=== PATIENT | female | born 1945 | race Caucasian/White ===

== ENCOUNTER 2019-01-29 22:19 | Inpatient (IN) | payer MEDICARE ==
--- NOTE | 2019-01-29 22:41 | ED ---
Lower Extremity Injury HPI - General Chief Complaint: Extremity Injury, Lower Stated Complaint: swollen foot Time Seen by Provider: 01/29/19 22:31 Source: patient, RN notes reviewed Mode of arrival: wheelchair Limitations: no limitations - History of Present Illness Initial Comments: This a 73-year-old female presents emergency Department chief complaint left leg swelling. Patient states that it is slightly achy in nature but not severely painful. Patient states that her primary started yesterday. Patient denies any chest pain or shortness of breath. Patient states that she has no history DVT. Denies any trauma. Patient states that she is supposed to go there is for 2 prior strokes but states that she could not afford him. Patient denies any other complaints at this time. - Related Data Home Medications Medication Instructions Recorded Confirmed Aspirin EC [Ecotrin Low Dose] 81 mg PO DAILY 01/29/19 01/29/19 Atorvastatin [Lipitor] 40 mg PO HS 01/29/19 01/29/19 Lisinopril 20 mg PO BID 01/29/19 01/29/19 Ranitidine HCl [Zantac] 75 mg PO BID 01/29/19 01/29/19 amLODIPine [Norvasc] 5 mg PO DAILY 01/29/19 01/29/19 glipiZIDE [Glucotrol] 10 mg PO AC-BID 01/29/19 01/29/19 hydrALAZINE HCL [Apresoline] 50 mg PO Q8H 01/29/19 01/29/19 metFORMIN HCL [Glucophage] 500 mg PO BID 01/29/19 01/29/19 Allergies Allergy/AdvReac Type Severity Reaction Status Date / Time No Known Allergies Allergy Verified 01/29/19 22:51 Review of Systems ROS Statement: Those systems with pertinent positive or pertinent negative responses have been documented in the HPI. ROS Other: All systems not noted in ROS Statement are negative. Past Medical History Past Medical History: Atrial Fibrillation, Diabetes Mellitus, Hyperlipidemia, Hypertension Additional Past Medical History / Comment(s): CVA x2, History of Any Multi-Drug Resistant Organisms: None Reported Past Surgical History: Cholecystectomy, Tubal Ligation Past Psychological History: No Psychological Hx Reported Smoking Status: Never smoker Past Alcohol Use History: None Reported Past Drug Use History: None Reported General Exam Limitations: no limitations General appearance: alert, in no apparent distress Head exam: Present: atraumatic, normocephalic, normal inspection Respiratory exam: Present: normal lung sounds bilaterally. Absent: respiratory distress, wheezes, rales, rhonchi, stridor Cardiovascular Exam: Present: regular rate, normal rhythm, normal heart sounds. Absent: systolic murmur, diastolic murmur, rubs, gallop, clicks Extremities exam: Present: other (Extensive swelling of the left lower extremity, pulses are equal bilaterally there is no erythema equal warmth) Skin exam: Present: warm, dry, intact, normal color. Absent: rash Course Vital Signs 01/29/19 01/29/19 01/30/19 22:26 22:58 00:00 Temperature 98.1 F Pulse Rate 74 67 65 Respiratory 18 17 17 Rate Blood Pressure 147/67 155/70 O2 Sat by Pulse 99 96 98 Oximetry Medical Decision Making - Medical Decision Making 73-year-old female presented for left leg swelling. Patient has CONSISTENT with DVT. Patient will be admitted secondary to patient unable to afford prior anticoagulants. Patient will be started on heparin at this time and further management with hospitalist. Disposition Clinical Impression: Deep vein thrombosis (DVT) of left lower extremity Disposition: ADMITTED IP TO THIS HOSP Condition: Fair Referrals: Zeke Beasley MD [Primary Care Provider] - 1-2 days
--- NOTE | 2019-01-30 00:11 | US ---
EXAM: US Duplex Left Lower Extremity Veins CLINICAL HISTORY: Pain TECHNIQUE: Real-time duplex ultrasound scan of the left lower extremity veins integrating B-mode two-dimensional vascular structure, Doppler spectral analysis, color flow Doppler imaging and compression. COMPARISON: No relevant prior studies available. FINDINGS: Deep veins: Occlusive thrombus noted within the external iliac vein extending to the popliteal vein consistent with a deep vein thrombosis. Superficial veins: Unremarkable. No thrombus in the visualized great saphenous vein. Soft tissues: No acute findings. No popliteal cyst. IMPRESSION: Occlusive thrombus noted within the external iliac vein extending to the popliteal vein consistent with a deep vein thrombosis.
[2019-01-30] MEDS ORDERED: NALOXONE 0.4 MG/ML 1 ML VIAL IV PRN (00:21)
[2019-01-30] MEDS ORDERED: HEPARIN SODIUM,PORCINE 5,000 UNIT/ML 1 ML VIAL IV PRN (00:22)
[2019-01-30] MEDS ORDERED: HEPARIN SODIUM,PORCINE 10,000 UNIT/ML 1 ML VIAL IV ONE (00:22)
[2019-01-30 00:47] LABS: Basophils % (A) 0 %; Eosinophils # (A) 0.5 k/uL (0-0.7); Eosinophils % (A) 10 %; HCT 29.2 % (34.0-46.0); HGB 9.4 gm/dL (11.4-16.0); Lymphocytes # (A) 1.6 k/uL (1.0-4.8); Lymphocytes % (A) 31 %; MCH 30.7 pg (25.0-35.0); MCHC 32.3 g/dL (31.0-37.0); Mean Platelet Volume 7.3; Monocytes # (A) 0.2 k/uL (0-1.0); Monocytes % (A) 5 %; Neutrophils # (A) 2.7 k/uL (1.3-7.7); Neutrophils % (A) 53 %; Platelet Count 208 k/uL (150-450); RBC 3.08 m/uL (3.80-5.40); RDW 15.2 % (11.5-15.5); WBC 5.1 k/uL (3.8-10.6)
[2019-01-30 01:04] LABS: INR 0.9 (<1.2); Prothrombin Time 10.1 sec (9.0-12.0)
[2019-01-30 01:11] LABS: Partial Thromboplastin Time 21.8 sec (22.0-30.0)
[2019-01-30] MEDS: HEPARIN SOD,PORK IN 0.45% NACL 25,000 UNIT in 0.45% NACL 1 250ML.BAG IV SCH ×3 (02:32→22:51)
[2019-01-30] MEDS ORDERED: TEMAZEPAM 15 MG CAP PO PRN (12:54)
[2019-01-30] MEDS ORDERED: ACETAMINOPHEN TAB 500 MG TAB PO PRN (12:54)
[2019-01-30] MEDS ORDERED: ALPRAZolam 0.25 MG TAB PO PRN (12:54)
[2019-01-30 13:10] LABS: Glucose,Whole Blood 79 mg/dL (75-99)
[2019-01-30] MEDS: IOPAMIDOL-300 CONTRAST 30 ML VIAL (ORAL USE) PO PRN ×2 (13:53→14:53)
--- NOTE | 2019-01-30 15:03 | HP ---
HISTORY AND PHYSICAL DATE OF SERVICE: 01/30/2019 CHIEF COMPLAINT: Pain and swelling of the left leg. HISTORY OF PRESENT ILLNESS: This 73-year-old woman with a past medical history of atrial fibrillation, history of diabetes, hypertension, hyperlipidemia, history of CVA x2, cholecystomy being followed by Dr. Beasley in the outpatient setting was complaining of left leg pain and swelling. Patient came to [facility] and evaluation showed occlusive thrombus noted in the external iliac vein extending to the popliteal vein, consider DVT. Patient was started on IV heparin and is being monitored at this time. Previously, the patient was apparently on blood thinner, but the patient was not able to afford it according to her. There is no history of fever, rigors or chills. No history of headache, loss of consciousness, chest pain, palpitation, shortness of breath at this time. PAST MEDICAL HISTORY: History of atrial fibrillation, history of diabetes, hypertension, hyperlipidemia, CVA, cholecystectomy, tubal ligation. MEDICATIONS: 1. Metformin 500 mg p.o. b.i.d. 2. Apresoline 50 mg q.8h. 3. Glucotrol 50 mg p.o. b.i.d. 4. Norvasc 5 mg p.o. 5. Zantac 75 mg p.o. b.i.d. 6. Lisinopril 20 mg p.o. b.i.d. 7. Lipitor 40 mg q.h.s. 8. Ecotrin 81 mg p.o. daily. ALLERGIES: None. FAMILY HISTORY: No history of heart disease or strokes in the family. SOCIAL HISTORY: No history of smoking. No history of alcohol intake. REVIEW OF SYSTEMS: ENT: Diminished vision. Diminished hearing. CARDIOVASCULAR: No angina or palpitations. RESPIRATION: As mentioned earlier. GI no nausea or vomiting. : No dysuria. NERVOUS SYSTEM: No numbness or weakness. ALLERGY/IMMUNOLOGY: No asthma or hayfever. MUSCULOSKELETAL as mentioned earlier. HEMATOLOGY/ONCOLOGY as mentioned earlier. ENDOCRINE: As mentioned earlier. CONSTITUTIONAL: As mentioned earlier. DERMATOLOGY: Negative. RHEUMATOLOGY negative. NEUROLOGY as mentioned earlier. PHYSICAL EXAMINATION: Alert and oriented x2. Pulse 63. Blood pressure 160/87, respiration 18, temperature is 97.4, pulse ox 97% on room air. HEENT is conjunctivae normal. Oral mucosa moist. NECK is no jugular venous distention. No carotid bruit. No lymph node enlargement. CARDIOVASCULAR: S1, S2 muffled. RESPIRATORY: Breath sounds diminished in the bases. No rhonchi. No crackles. ABDOMEN: Soft, nontender. No mass palpable. Obese. LEGS: Minimal swelling of the left thigh and left calf also present, some minimally tender. Pulses felt normally. NERVOUS SYSTEM: Higher functions as mentioned earlier. Moves all 4 limbs. Mild diffuse weakness. LYMPHATICS: No lymph nodes palpable in the neck, axillae or groin. SKIN: No ulcers, rashes or bleeding. JOINTS: No active deforming arthropathy. LABS: WBC 5.2, hemoglobin 9.5, APTT noted. ASSESSMENT: 1. Acute deep vein thrombosis of the left leg including external iliac and popliteal vein with severe pain. 2. Anemia, normocytic anemia of chronic disease. 3. History of atrial fibrillation. 4. Diabetes type 2. 5. Hypertension. 6. Hyperlipidemia. 7. History of cerebrovascular accident x2. 8. Gait dysfunction uses wheelchair. 9. History of cholecystectomy. 10.Obesity with body mass of 31.3. RECOMMENDATIONS AND DISCUSSION: In this 73-year-old woman who presented with multiple complex medical issues, we will monitor the patient closely. We will initiate IV heparin drip. The patient will be given other symptomatic treatment. Home medication will be continued. We will also consult the case specialist to evaluate for outpatient oral anticoagulants agents such as Eliquis or Xarelto, pending insurance coverage. Otherwise, the prognosis guarded because of multiple complex medical issues. I would also recommend a CT scan of the abdomen, pelvis, and chest also to complete the workup. Further recommendations to follow. Copy of dictation being forwarded to Dr. Beasley who is the primary physician. MMODL / IJN: [id number] /
--- NOTE | 2019-01-30 16:00 | CT ---
EXAMINATION TYPE: CT ChestAbdPelvis wo con DATE OF EXAM: 01/30/2019 COMPARISON: None HISTORY: DVT left leg. Hx DM, HTN, A-fib, CVAx2, Otilia, tubal CT DLP: 1237 mGycm. Automated Exposure Control for Dose Reduction was Utilized. TECHNIQUE: CT scan of the thorax, abdomen and pelvis is performed without IV contrast. FINDINGS: The lungs are clear of consolidation. There is no pleural effusion. Heart size is normal. There is at herosclerotic vascular calcification. There is coronary artery calcification. There is no mediastinal adenopathy. There are no hilar masses. Liver shows no focal defect. There are multiple small calcified splenic granulomata. There is no panc reatic mass. Stomach appears normal. There is no adrenal mass. Kidneys have normal size. There is no hydronephrosis. There is no retroperi toneal adenopathy. Abdominal aorta is atheromatous. Bladder distends smoothly. There is no inguinal h ernia. There are a few bilateral inguinal lymph nodes up to 13 mm. Uterus is retroverted. There are m ultiple sigmoid diverticula. There is no sign of diverticulitis. There is no free fluid in the pelvis . There is no ascites. There is no free air. There is no mesenteric edema. There is no evidence of th ickened appendix. There is 40% compression deformity of L2 vertebra. There is posterior fragment extension into the spi nal canal. There is moderate spinal stenosis. The bony pelvis appears intact. IMPRESSION: Atherosclerotic vascular disease. Old granulomatous disease. Colonic diverticulosis. Old burst fractu re of L2 vertebra with spinal stenosis.
[2019-01-30 16:38] LABS: Glucose,Whole Blood 126 mg/dL (75-99)
[2019-01-30] MEDS: INSULIN ASPART (NovoLOG) 100 UNIT/ML VIAL SQ SCH ×2 (17:11→21:48)
[2019-01-30] MEDS: hydrALAZINE HCL 50 MG TAB PO SCH (17:12)
[2019-01-30] MEDS: glipiZIDE 10 MG TAB PO SCH (17:12)
[2019-01-30] MEDS: FAMOTIDINE 20 MG TAB PO SCH (20:03)
[2019-01-30] MEDS: ATORVASTATIN 40 MG TAB PO SCH (20:03)
[2019-01-30] MEDS: LISINOPRIL 20 MG TAB PO SCH (20:03)
[2019-01-30] MEDS ORDERED: metFORMIN 500 MG TAB PO SCH (21:00)
[2019-01-30 21:12] LABS: Glucose,Whole Blood 202 mg/dL (75-99)
[2019-01-31] MEDS: hydrALAZINE HCL 50 MG TAB PO SCH ×3 (00:44→16:00)
[2019-01-31 06:53] LABS: Basophils % (A) 1 %; Eosinophils # (A) 0.5 k/uL (0-0.7); Eosinophils % (A) 10 %; HCT 26.5 % (34.0-46.0); HGB 8.7 gm/dL (11.4-16.0); Lymphocytes # (A) 1.4 k/uL (1.0-4.8); Lymphocytes % (A) 29 %; MCH 31.2 pg (25.0-35.0); MCHC 32.7 g/dL (31.0-37.0); MCV 95.4 fL (80.0-100.0); Mean Platelet Volume 7.7; Monocytes # (A) 0.3 k/uL (0-1.0); Monocytes % (A) 5 %; Neutrophils # (A) 2.7 k/uL (1.3-7.7); Neutrophils % (A) 55 %; Platelet Count 211 k/uL (150-450); RBC 2.78 m/uL (3.80-5.40); RDW 15.9 % (11.5-15.5)
[2019-01-31 07:04] LABS: Partial Thromboplastin Time 51.5 sec (22.0-30.0); Prothrombin Time 10.5 sec (9.0-12.0)
[2019-01-31 07:10] LABS: Calcium 8.5 mg/dL (8.4-10.2); Potassium 4.9 mmol/L (3.5-5.1)
[2019-01-31] MEDS: INSULIN ASPART (NovoLOG) 100 UNIT/ML VIAL SQ SCH ×4 (07:13→22:47)
[2019-01-31 07:16] LABS: Glucose,Whole Blood 101 mg/dL (75-99)
[2019-01-31] MEDS: amLODIPine 5 MG TAB PO SCH (08:55)
[2019-01-31] MEDS: FAMOTIDINE 20 MG TAB PO SCH ×2 (08:55→20:35)
[2019-01-31] MEDS: PANTOPRAZOLE 40 MG TABLET PO SCH (08:55)
[2019-01-31] MEDS: glipiZIDE 10 MG TAB PO SCH ×2 (08:55→16:44)
[2019-01-31] MEDS: ASPIRIN 81 MG PO SCH (08:55)
[2019-01-31] MEDS: LISINOPRIL 20 MG TAB PO SCH ×2 (08:55→20:35)
[2019-01-31 12:07] LABS: Glucose,Whole Blood 118 mg/dL (75-99)
--- NOTE | 2019-01-31 16:28 | PN ---
PROGRESS NOTE DATE OF SERVICE: 01/31/2019. This 73-year-old woman who was admitted with acute DVT of the left leg, including external iliac and popliteal vein, has severe pain also. The patient is on IV heparin. The patient will be transitioned to Xarelto at this time. No chest pain. No palpitations. No fever. On exam, alert and oriented x3. Pulse 67, blood pressure 136/79, respiration 16, temperature 98.5, pulse ox 96% on room air. HEENT: Conjunctivae normal. NECK: No jugular venous distention. CARDIOVASCULAR SYSTEM: S1, S2 muffled. RESPIRATORY SYSTEM: Breath sounds diminished at the bases. Bilateral scattered rhonchi and crackles. ABDOMEN: Soft, non-tender. LEGS: No edema. Minimal swelling of the left leg. NERVOUS SYSTEM: No focal deficit. LABS: WBC 5, hemoglobin 8.7, sodium 140, potassium 4.9. ASSESSMENT: 1. Acute deep vein thrombosis of the left leg, including external iliac and popliteal veins, with severe pain. 2. Anemia, normocytic; anemia of chronic disease. 3. History of atrial fibrillation, paroxysmal. 4. Diabetes mellitus, type 2. 5. Hypertension. 6. Hyperlipidemia. 7. History of cerebrovascular accident x2. 8. Gait dysfunction. Uses wheelchair. 9. History of cholecystectomy. 10.Obesity with body mass index of 31.3. RECOMMENDATIONS AND DISCUSSION: I recommend to continue current medications, continue with the monitoring, symptomatic treatment. CT scan noted. The patient is unable to afford anticoagulants because of high co-pay. At this time I recommend transition to Coumadin at 10 mg given. Continue with IV heparin at this time. Guarded prognosis because of multiple complex medical issues. Increase ambulation. Further recommendations to follow. MMODL / IJN: [id number] / MTDD
[2019-01-31 16:45] LABS: Glucose,Whole Blood 172 mg/dL (75-99)
[2019-01-31] MEDS ORDERED: WARFARIN 5 MG TAB PO ONE (18:00)
[2019-01-31] MEDS: ATORVASTATIN 40 MG TAB PO SCH (20:35)
[2019-01-31 21:48] LABS: Hemoglobin A1C 7.3 % (4.0-6.0)
[2019-01-31 21:53] LABS: Glucose,Whole Blood 212 mg/dL (75-99)
[2019-01-31] MEDS: HEPARIN SOD,PORK IN 0.45% NACL 25,000 UNIT in 0.45% NACL 1 250ML.BAG IV SCH (22:00)
[2019-02-01] MEDS: hydrALAZINE HCL 50 MG TAB PO SCH ×3 (00:41→15:23)
[2019-02-01 07:29] LABS: Glucose,Whole Blood 100 mg/dL (75-99)
[2019-02-01 07:35] LABS: Basophils % (A) 1 %; Eosinophils # (A) 0.4 k/uL (0-0.7); Eosinophils % (A) 9 %; HCT 28.4 % (34.0-46.0); HGB 9.2 gm/dL (11.4-16.0); Lymphocytes # (A) 1.3 k/uL (1.0-4.8); Lymphocytes % (A) 28 %; MCHC 32.5 g/dL (31.0-37.0); MCV 95.4 fL (80.0-100.0); Mean Platelet Volume 7.3; Monocytes # (A) 0.2 k/uL (0-1.0); Monocytes % (A) 5 %; Neutrophils # (A) 2.7 k/uL (1.3-7.7); Neutrophils % (A) 57 %; Platelet Count 216 k/uL (150-450); RBC 2.98 m/uL (3.80-5.40); RDW 15.4 % (11.5-15.5); WBC 4.8 k/uL (3.8-10.6)
[2019-02-01 07:50] LABS: INR 0.9 (<1.2); Partial Thromboplastin Time 43.5 sec (22.0-30.0); Prothrombin Time 10.2 sec (9.0-12.0)
[2019-02-01 07:56] LABS: Calcium 8.8 mg/dL (8.4-10.2); Potassium 4.7 mmol/L (3.5-5.1)
[2019-02-01] MEDS: INSULIN ASPART (NovoLOG) 100 UNIT/ML VIAL SQ SCH ×4 (07:56→22:20)
[2019-02-01] MEDS: glipiZIDE 10 MG TAB PO SCH ×2 (07:57→17:38)
[2019-02-01] MEDS: amLODIPine 5 MG TAB PO SCH (07:57)
[2019-02-01] MEDS: FAMOTIDINE 20 MG TAB PO SCH ×2 (07:57→22:27)
[2019-02-01] MEDS: ASPIRIN 81 MG PO SCH (07:57)
[2019-02-01] MEDS: PANTOPRAZOLE 40 MG TABLET PO SCH (07:57)
[2019-02-01] MEDS: LISINOPRIL 20 MG TAB PO SCH ×2 (07:57→22:26)
[2019-02-01] MEDS ORDERED: HEPARIN SODIUM,PORCINE 5,000 UNIT/ML 1 ML VIAL IV STA (07:59)
[2019-02-01] MEDS ORDERED: diphenhydrAMINE 25 MG CAP PO STA (09:15)
[2019-02-01 12:12] LABS: Glucose,Whole Blood 138 mg/dL (75-99)
[2019-02-01] MEDS ORDERED: valACYclovir 500 MG TAB PO SCH (14:00)
--- NOTE | 2019-02-01 17:05 | PN ---
PROGRESS NOTE DATE OF SERVICE: 02/01/2019 This 73 -year-old woman was admitted with acute DVT of the left leg was also started on IV heparin. The patient apparently unable to afford the co-pay for anticoagulation because of the recent Coumadin was initiated. The patient also complaining of painful rash on the right upper back. PAST MEDICAL HISTORY: Reviewed. REVIEW OF SYSTEMS: CARDIOVASCULAR SYSTEM: No angina or palpitations. RESPIRATION as mentioned earlier. GI: As mentioned earlier. : No dysuria. CENTRAL NERVOUS SYSTEM: No numbness or weakness. CURRENT MEDICATIONS: Reviewed and include: 1. Tylenol 500 mg q.6h p.r.n. 2. Hope 5 mg q.4 p.r.n. 3. Xanax 0.5 t.i.d. 4. Norvasc 5 mg p.o. daily. 5. Aspirin 81 mg daily. 6. Lipitor 40 mg q.h.s. 7. Pepcid 10 mg p.o. b.i.d. 8. Glucotrol 10 mg p.o. a.c. b.i.d. 9. Heparin b.i.d. 10.Apresoline 50 mg q.8h. 11.NovoLog a.c. and q.h.s. 12.Zestril 20 mg p.o. b.i.d. 13.Glucophage 500 mg p.o. b.i.d. 14.Coumadin monitoring. 15.Narcan. 16.Zofran. 17.Protonix. 18.Restoril. PHYSICAL EXAM: Patient is alert, oriented x3. Pulse 61. Blood pressure 120/70, respiration 20, temperature 98.4, pulse ox 98% on room air. HEENT: Conjunctivae normal. NECK: No jugular venous distention. CARDIOVASCULAR: S1, S2 muffled. RESPIRATIONS: Breath sounds diminished in the bases. No rhonchi. No crackles. ABDOMEN: Soft, nontender. LEGS: No edema. No swelling. NERVOUS SYSTEM: Higher functions as mentioned earlier. Moves all 4 limbs. No focal motor or sensory deficits. Lymphatics: No lymph nodes palpable in the neck, axillae or groin. SKIN: Significant rash which is tender on the left upper back present. NERVOUS SYSTEM: No focal deficits. LABS: WBC 4.8, hemoglobin 9.2. Sodium 140, potassium 4.7. ASSESSMENT: 1. Acute deep vein thrombosis of the left leg including the external iliac and popliteal vein, severe pain on IV heparin. 2. Anemia, normocytic anemia of chronic disease. 3. Rash on the upper back, possibly herpes zoster. 4. History of atrial fibrillation, paroxysmal. 5. Diabetes mellitus type 2. 6. Hypertension. 7. Hyperlipidemia. 8. History of cerebrovascular accident times two. 9. Gait dysfunction, uses a wheelchair. 10.History of cholecystectomy. 11.History of obesity with body mass index of 31.3. RECOMMENDATIONS AND DISCUSSION: Recommend to continue current medication, continue symptomatic treatment. Continue with IV heparin, Coumadin 10 mg today. INR is 0.9. Otherwise, we will continue to monitor. I would also recommend a course of Valacyclovir. Further recommendations to follow. MMODL / IJN: [id number] / MTDD
[2019-02-01 17:31] LABS: Glucose,Whole Blood 123 mg/dL (75-99)
[2019-02-01] MEDS: HEPARIN SOD,PORK IN 0.45% NACL 25,000 UNIT in 0.45% NACL 1 250ML.BAG IV SCH (17:41)
[2019-02-01] MEDS ORDERED: WARFARIN 10 MG TAB PO ONE (18:00)
[2019-02-01 20:39] LABS: Glucose,Whole Blood 151 mg/dL (75-99)
[2019-02-01] MEDS: valACYclovir HCL 1,000 MG TABLET PO SCH (22:23)
[2019-02-01] MEDS: HYDROcodone/APAP 5-325MG 1 EACH TAB PO PRN (22:23)
[2019-02-01] MEDS: ATORVASTATIN 40 MG TAB PO SCH (22:26)
[2019-02-01] MEDS: metFORMIN 500 MG TAB PO SCH (22:26)
[2019-02-02] MEDS: hydrALAZINE HCL 50 MG TAB PO SCH ×3 (00:39→15:31)
[2019-02-02] MEDS ORDERED: HYDROcodone/APAP 5-325MG 1 EACH TAB ONE (04:27)
[2019-02-02 05:34] LABS: Basophils % (A) 0 %; Eosinophils # (A) 0.3 k/uL (0-0.7); Eosinophils % (A) 6 %; HCT 28.2 % (34.0-46.0); HGB 9.3 gm/dL (11.4-16.0); Lymphocytes # (A) 1.3 k/uL (1.0-4.8); Lymphocytes % (A) 22 %; MCH 31.2 pg (25.0-35.0); MCHC 32.8 g/dL (31.0-37.0); MCV 95.1 fL (80.0-100.0); Mean Platelet Volume 7.3; Monocytes # (A) 0.2 k/uL (0-1.0); Monocytes % (A) 4 %; Neutrophils # (A) 3.8 k/uL (1.3-7.7); Neutrophils % (A) 67 %; Platelet Count 245 k/uL (150-450); RBC 2.97 m/uL (3.80-5.40); WBC 5.7 k/uL (3.8-10.6)
[2019-02-02 05:35] LABS: Calcium 8.9 mg/dL (8.4-10.2); Partial Thromboplastin Time 61.7 sec (22.0-30.0); Potassium 4.9 mmol/L (3.5-5.1); Prothrombin Time 10.3 sec (9.0-12.0)
[2019-02-02 07:18] LABS: Glucose,Whole Blood 82 mg/dL (75-99)
[2019-02-02] MEDS: glipiZIDE 10 MG TAB PO SCH ×2 (08:06→17:14)
[2019-02-02] MEDS: metFORMIN 500 MG TAB PO SCH ×2 (08:06→20:39)
[2019-02-02] MEDS: FAMOTIDINE 20 MG TAB PO SCH ×2 (08:06→20:39)
[2019-02-02] MEDS: ASPIRIN 81 MG PO SCH (08:06)
[2019-02-02] MEDS: valACYclovir HCL 1,000 MG TABLET PO SCH ×2 (08:06→20:39)
[2019-02-02] MEDS: LISINOPRIL 20 MG TAB PO SCH ×2 (08:06→20:37)
[2019-02-02] MEDS: amLODIPine 5 MG TAB PO SCH (08:06)
[2019-02-02] MEDS: PANTOPRAZOLE 40 MG TABLET PO SCH (08:07)
[2019-02-02] MEDS: INSULIN ASPART (NovoLOG) 100 UNIT/ML VIAL SQ SCH ×4 (08:07→22:04)
[2019-02-02] MEDS: HEPARIN SOD,PORK IN 0.45% NACL 25,000 UNIT in 0.45% NACL 1 250ML.BAG IV SCH (08:08)
[2019-02-02] MEDS: ONDANSETRON 4 MG/2 ML VIAL IVP PRN ×2 (09:14→14:49)
[2019-02-02 11:23] LABS: Glucose,Whole Blood 187 mg/dL (75-99)
[2019-02-02] MEDS: SODIUM CHLORIDE 0.9% 1,000 ML IV SCH (13:08)
[2019-02-02 14:00] LABS: Calcium 8.8 mg/dL (8.4-10.2); Potassium 5.1 mmol/L (3.5-5.1)
--- NOTE | 2019-02-02 14:13 | P.PN ---
Subjective Progress Note Date: 02/02/19 Principal diagnosis: This is a 73-year-old female who was recently admitted with an acute DVT of the left lower extremity and was started on IV heparin and is being followed closely . Patient is currently bridging to Coumadin as she is unable to afford Eliquis or Xarelto. May possibly start Lovenox injections to discontinue the IV heparin and then bridge to Coumadin awaiting labs at this time. Patient is also being treated for rash of the upper back that may be possibly due to herpes zoster. Patient states the rash is very itchy and painful to the touch. Patient was started on acyclovir yesterday and tolerating well. Patient did have an episode of vomiting this morning and was given Zofran. Patient denies any further nausea or vomiting at this time. Patient denies any chest pain, shortness of breath, or palpitations at this time. Patient is afebrile. Patient is currently awaiting authorization for [facility] for rehab at this time. Objective - Vital Signs Vital signs: Vital Signs Temp 97.4 F L 02/02/19 04:15 Pulse 81 02/02/19 04:15 Resp 16 02/02/19 04:15 BP 161/78 02/02/19 04:15 Pulse Ox 92 L 02/02/19 04:15 Intake & Output 02/01/19 02/02/19 02/02/19 18:59 06:59 18:59 Intake Total 1775.162 194.838 540 Balance 1775.162 194.838 540 Intake: Intake, IV Titration 155.162 94.838 Amount Heparin Sod,Pork in 0.45% 155.162 94.838 NaCl 25,000 unit In 0.45 % NaCl 1 250ml.bag @ 18 UNITS/KG/HR 16.329 mls/hr IV .[id number] [facility] Rx#: [id number] Oral 1620 100 540 Other: Voiding Method Diaper Diaper Diaper Incontinent Incontinent Incontinent # Voids 3 1 3 - Exam Gen: This is a 73-year-old female lying in bed in no acute distress. Vital signs are stable. HEENT: Head is atraumatic, normocephalic. Pupils equal, round. Sclerae is anicteric. NECK: Supple. No JVD. No lymphadenopathy. No thyromegaly. LUNGS: Clear to auscultation. No wheezes or rhonchi. No intercostal retractions. HEART: Regular rate and rhythm. No murmur. ABDOMEN: Soft. Bowel sounds are present. No masses. No tenderness. EXTREMITIES: Mild pedal edema of the left foot. No calf tenderness. NEUROLOGICAL: Patient is awake, alert and oriented x3. Cranial nerves 2 through 12 are grossly intact. SKIN: Vesicular rash with crusting noted to the mid upper back with mild swelli ng and erythema, tender upon palpation - Labs CBC & Chem 7: 02/02/19 03:56 02/02/19 03:56 Labs: Abnormal Lab Results - Last 24 Hours (Table) 02/01/19 02/01/19 02/01/19 Range/Units 14:00 17:29 20:37 RBC (3.80-5.40) m/uL Hgb (11.4-16.0) gm/dL Hct (34.0-46.0) % RDW (11.5-15.5) % APTT 89.2 H (22.0-30.0) sec Chloride (98-107) mmol/L Creatinine (0.52-1.04) mg/dL POC Glucose (mg/dL) 123 H 151 H (75-99) mg/dL 02/01/19 02/02/19 02/02/19 Range/Units 21:22 03:56 03:56 RBC 2.97 L (3.80-5.40) m/uL Hgb 9.3 L (11.4-16.0) gm/dL Hct 28.2 L (34.0-46.0) % RDW 16.0 H (11.5-15.5) % APTT 46.4 H 61.7 H (22.0-30.0) sec Chloride (98-107) mmol/L Creatinine (0.52-1.04) mg/dL POC Glucose (mg/dL) (75-99) mg/dL 02/02/19 02/02/19 Range/Units 03:56 11:19 RBC (3.80-5.40) m/uL Hgb (11.4-16.0) gm/dL Hct (34.0-46.0) % RDW (11.5-15.5) % APTT (22.0-30.0) sec Chloride 110 H (98-107) mmol/L Creatinine 1.23 H (0.52-1.04) mg/dL POC Glucose (mg/dL) 187 H (75-99) mg/dL Assessment and Plan Assessment: Acute deep vein thrombosis of the left leg including the external iliac and popliteal vein, severe pain: On IV heparin and bridging to Coumadin Anemia, normocytic anemia of chronic disease Rash on the upper middle of her back, possibly herpes zoster History of atrial fibrillation, paroxysmal Diabetes mellitus type 2 Hypertension Hyperlipidemia History of cerebrovascular accident 2 Gait dysfunction, wheelchair-bound History of cholecystectomy History of obesity with a body mass index of 31.3 Recommendations and discussion: Recommend continue current medications and continue symptomatic treatment. Patient is currently on IV heparin drip and was given Coumadin 10 mg yesterday. Awaiting labs and may start Lovenox injections to discontinue the IV heparin drip and then bridged to Coumadin as she is unable to afford other anticoagulants. Current INR is 1.0. Awaiting authorization for [facility] at this time. Will continue to monitor closely. Guarded prognosis. Further recommendations to follow. Possible discharge in 24-48 hours.
[2019-02-02 17:07] LABS: Glucose,Whole Blood 112 mg/dL (75-99)
[2019-02-02] MEDS ORDERED: WARFARIN 10 MG TAB PO ONE (18:00)
[2019-02-02] MEDS: ATORVASTATIN 40 MG TAB PO SCH (20:37)
[2019-02-02 20:46] LABS: Glucose,Whole Blood 167 mg/dL (75-99)
[2019-02-03] MEDS: hydrALAZINE HCL 50 MG TAB PO SCH ×2 (00:48→08:57)
[2019-02-03] MEDS: SODIUM CHLORIDE 0.9% 1,000 ML IV SCH (01:59)
[2019-02-03] MEDS: HYDROcodone/APAP 5-325MG 1 EACH TAB PO PRN ×3 (03:02→21:18)
[2019-02-03 07:01] LABS: INR 1.3 (<1.2); Partial Thromboplastin Time 79.9 sec (22.0-30.0); Prothrombin Time 13.2 sec (9.0-12.0)
[2019-02-03 07:03] LABS: Glucose,Whole Blood 64 mg/dL (75-99)
[2019-02-03 07:10] LABS: Glucose,Whole Blood 63 mg/dL (75-99)
[2019-02-03 07:26] LABS: Calcium 8.5 mg/dL (8.4-10.2); Potassium 4.9 mmol/L (3.5-5.1)
[2019-02-03] MEDS: HEPARIN SOD,PORK IN 0.45% NACL 25,000 UNIT in 0.45% NACL 1 250ML.BAG IV SCH ×2 (07:26→13:12)
[2019-02-03 07:27] LABS: Glucose,Whole Blood 69 mg/dL (75-99)
[2019-02-03] MEDS: INSULIN ASPART (NovoLOG) 100 UNIT/ML VIAL SQ SCH ×4 (07:27→21:11)
[2019-02-03 07:43] LABS: Glucose,Whole Blood 106 mg/dL (75-99)
[2019-02-03] MEDS: metFORMIN 500 MG TAB PO SCH (08:56)
[2019-02-03] MEDS: LISINOPRIL 20 MG TAB PO SCH (08:56)
[2019-02-03] MEDS: amLODIPine 5 MG TAB PO SCH (08:56)
[2019-02-03] MEDS: glipiZIDE 10 MG TAB PO SCH ×2 (08:56→18:10)
[2019-02-03] MEDS: FAMOTIDINE 20 MG TAB PO SCH ×2 (08:56→21:06)
[2019-02-03] MEDS: ASPIRIN 81 MG PO SCH (08:56)
[2019-02-03] MEDS: PANTOPRAZOLE 40 MG TABLET PO SCH (08:57)
[2019-02-03] MEDS: valACYclovir HCL 1,000 MG TABLET PO SCH (08:57)
[2019-02-03] MEDS: ONDANSETRON 4 MG/2 ML VIAL IVP PRN ×2 (08:57→18:11)
[2019-02-03 12:02] LABS: Glucose,Whole Blood 138 mg/dL (75-99)
--- NOTE | 2019-02-03 12:02 | XR ---
EXAMINATION TYPE: XR chest 1V DATE OF EXAM: 02/03/2019 COMPARISON: CT dated 01/30/2019 HISTORY: Shortness of breath TECHNIQUE: Single frontal view of the chest is obtained. FINDINGS: Retrocardiac airspace disease is noted with obscuration of the left hemidiaphragm borders. No sizable right pleural effusion. No pneumothorax. Diffuse osseous demineralization. Right hemidiap hragm elevation is incidentally seen. The cardiac silhouette size is within normal limits. The osse ous structures are intact. IMPRESSION: Retrocardiac airspace disease is seen obscuring the hemidiaphragm border on the left puma t may relate to atelectasis or pneumonia in the proper clinical setting. Right hemidiaphragm elevatio n is age indeterminant without priors.
--- NOTE | 2019-02-03 12:47 | XR ---
EXAMINATION TYPE: XR chest 2V DATE OF EXAM: 02/03/2019 COMPARISON: 02/03/2019 TECHNIQUE: PA and lateral views submitted. HISTORY: Vomiting and DVT FINDINGS: Diffuse osteopenia. Heart size stable. Atherosclerotic change aorta. Subsegmental changes left lung b ase right hemidiaphragm is elevated may been the basis of phrenic nerve paralysis. No overt failure. Hyperinflation suggests COPD. IMPRESSION: 1. Left basilar subsegmental changes. Atelectasis\bronchiectasis favored over pneumonia correlate cli nically.
[2019-02-03] MEDS: LACTATED RINGERS 1,000 ML IV SCH ×2 (13:12→21:17)
[2019-02-03] MEDS: DOCUSATE 100 MG CAP PO SCH ×2 (13:33→21:16)
--- NOTE | 2019-02-03 14:44 | CDI ---
Documentation Clarification Form Date: 02/03/2019 2:36:39 PM From: [employer] Admit Date: 01/30/2019 4:49:00 AM Patient Name: Bessie Banerjee Visit Number: [id number] ATTENTION: The Clinical Documentation Specialists (CDI) and [facility] Coding Staff appreciate your assistance in clarifying documentation. Please respond to the clarification below the line at the bottom and electronically sign. The CDI & [facility] Coding staff will review the response and follow-up if needed. Please note: Queries are made part of the Legal Health Record. If you have any questions, please contact the author of this message via ITS. Dr. Augie Phelan A steadily increasing BUN and Creatinine has been noted, please provide clinical significance History/Risk Factors: Patients baseline BUN/CR/GFR: No baseline renal functions available Clinical Indicators: Current BUN: 18/16/20/22 Cr: .98/1.09/1.37/1.51 GFR: 57/50/38/34 Treatment: Norvasc 5 mg po QD Apresoline 50 mg Po Q 8 hrs IVF 0.9@ 75 cc/hr In order to capture the severity of condition, please clarify if the condition signifies: Acute renal failure, Please specify etiology (if known): Cortical Necrosis Medullary Necrosis Tubular Necrosis Acute kidney injury Acute on chronic renal failure CKD Stage 1 GFR >90 CKD Stage 2 GFR 60-89 CKD Stage 3 GFR 30-59 CKD Stage 4 GFR 15-29 CKD Stage 5 GFR <15 Chronic renal failure/Chronic Kidney disease (CKD) please stage (if known): CKD Stage 1 GFR >90 CKD Stage 2 GFR 60-89 CKD Stage 3 GFR 30-59 CKD Stage 4 GFR 15-29 CKD Stage 5 GFR <15 ESRD Other, please specify Unable to determine (Last Revision: September 2017) no CKD MTDD
--- NOTE | 2019-02-03 16:14 | P.PN ---
Subjective Progress Note Date: 02/03/19 Principal diagnosis: This is a 73-year-old female who was recently admitted with an acute DVT of the left lower extremity and was started on IV heparin and is being followed closely . Patient is currently bridging to Coumadin as she is unable to afford Eliquis or Xarelto. May possibly start Lovenox injections to discontinue the IV heparin and then bridge to Coumadin awaiting labs at this time. Patient is also being treated for rash of the upper back that may be possibly due to herpes zoster. Patient states the rash is very itchy and painful to the touch. Patient was started on acyclovir yesterday and tolerating well. Patient did have an episode of vomiting this morning and was given Zofran. Patient denies any further nausea or vomiting at this time. Patient denies any chest pain, shortness of breath, or palpitations at this time. Patient is afebrile. Patient is currently awaiting authorization for [facility] for rehab at this time. 02/03/2019 Patient is lying in bed in no acute distress. Patient hasn't been eating as well as she states she is nauseated patient has not vomited since last night. Patient continues to be on the IV heparin with bridging to Coumadin. Current INR is 1.3. Patient's creatinine is elevated at 1.51 at this time. IV fluids have been increased 100 mL per hour and switched to lactated Ringer's. Will continue to monitor vitals and labs closely. We will discontinue Glucophage, hydralazine, and lisinopril at this time as this may be causing an acute renal failure. Patient denies any chest pain, shortness of breath, or palpitations at this time. Patient remains afebrile. The rash on the upper back has slightly improved with crusting noted. Patient states that the discomfort has minimized. Patient states that the swelling of the left foot has also improved. Patient states that she has not gotten out of bed today and was told she was not to get up because of the DVT in the leg. PT/OT are following. Patient will be going to [facility] for rehab once stabilized. Authorization will tomorrow and will possibly need to request new authorization. Guarded prognosis Objective - Vital Signs Vital signs: Vital Signs Temp 98.4 F 02/03/19 13:26 Pulse 72 02/03/19 13:26 Resp 16 02/03/19 13:26 BP 136/56 02/03/19 13:26 Pulse Ox 94 L 02/03/19 13:26 Intake & Output 02/02/19 02/03/19 02/03/19 18:59 06:59 18:59 Intake Total 2160 100 820.397 Balance 2160 100 820.397 Intake: Intake, IV Titration 280.397 Amount Heparin Sod,Pork in 0.45% 280.397 NaCl 25,000 unit In 0.45 % NaCl 1 250ml.bag @ 18 UNITS/KG/HR 16.329 mls/hr IV .[id number] BRIDGER Rx#: [id number] Oral 2160 100 540 Other: Voiding Method Incontinent Diaper Incontinent # Voids 1 2 5 - Exam Gen: This is a 73-year-old female lying in bed in no acute distress. Vital signs are stable. Temp is 98.2F, pulse is 65, respirations are 20, blood pressure is 126/70, oxygen saturation is 94% on room air. HEENT: Head is atraumatic, normocephalic. Pupils equal, round. Sclerae is anicteric. NECK: Supple. No JVD. No lymphadenopathy. No thyromegaly. LUNGS: Clear to auscultation. No wheezes or rhonchi. No intercostal retractions. HEART: Regular rate and rhythm. No murmur. ABDOMEN: Soft. Bowel sounds are present. No masses. No tenderness. EXTREMITIES: Mild pedal edema of the left foot has improved. No calf tenderness. NEUROLOGICAL: Patient is awake, alert and oriented x3. Cranial nerves 2 through 12 are grossly intact. SKIN: Vesicular rash with crusting noted to the mid upper back with mild swelling and erythema that has improved - Labs CBC & Chem 7: 02/02/19 03:56 02/03/19 06:33 Labs: Abnormal Lab Results - Last 24 Hours (Table) 02/02/19 02/02/19 02/03/19 Range/Units 17:03 20:34 06:33 PT 13.2 H (9.0-12.0) sec INR 1.3 H (<1.2) APTT 79.9 H (22.0-30.0) sec Chloride (98-107) mmol/L BUN (7-17) mg/dL Creatinine (0.52-1.04) mg/dL Glucose (74-99) mg/dL POC Glucose (mg/dL) 112 H 167 H (75-99) mg/dL 02/03/19 02/03/19 02/03/19 Range/Units 06:33 06:46 07:03 PT (9.0-12.0) sec INR (<1.2) APTT (22.0-30.0) sec Chloride 113 H (98-107) mmol/L BUN 22 H (7-17) mg/dL Creatinine 1.51 H (0.52-1.04) mg/dL Glucose 60 L (74-99) mg/dL POC Glucose (mg/dL) 64 L 63 L (75-99) mg/dL 02/03/19 02/03/19 02/03/19 Range/Units 07:19 07:40 12:00 PT (9.0-12.0) sec INR (<1.2) APTT (22.0-30.0) sec Chloride (98-107) mmol/L BUN (7-17) mg/dL Creatinine (0.52-1.04) mg/dL Glucose (74-99) mg/dL POC Glucose (mg/dL) 69 L 106 H 138 H (75-99) mg/dL 02/03/19 Range/Units 12:38 PT (9.0-12.0) sec INR (<1.2) APTT 55.3 H (22.0-30.0) sec Chloride (98-107) mmol/L BUN (7-17) mg/dL Creatinine (0.52-1.04) mg/dL Glucose (74-99) mg/dL POC Glucose (mg/dL) (75-99) mg/dL Assessment and Plan Assessment: Acute deep vein thrombosis of the left leg including the external iliac and popliteal vein, severe pain: On IV heparin and bridging to Coumadin Anemia, normocytic anemia of chronic disease Acute renal failure possibly secondary to lisinopril, hydralazine, metformin use: Will continue to monitor labs closely. Discontinuing lisinopril, hydralazine, and metformin at this time. Current creatinine is 1.51 Rash on the upper middle of her back, possibly herpes zoster History of atrial fibrillation, paroxysmal Diabetes mellitus type 2 Hypertension Hyperlipidemia History of cerebrovascular accident 2 Gait dysfunction, wheelchair-bound History of cholecystectomy History of obesity with a body mass index of 31.3 Recommendations and discussion: Recommend continue current medications and continue symptomatic treatment. Patient is currently on IV heparin drip and was given Coumadin 10 mg yesterday. Current INR is 1.3. Received authorization for [facility] for rehab and it expires tomorrow may need to renew once patient is stabilized for discharge. Will continue to monitor closely. Guarded prognosis. Further recommendations to follow. Possible discharge in 24-48 hours.
[2019-02-03 17:32] LABS: Glucose,Whole Blood 97 mg/dL (75-99)
[2019-02-03] MEDS ORDERED: WARFARIN 10 MG TAB PO ONE (18:00)
[2019-02-03 20:57] LABS: Glucose,Whole Blood 114 mg/dL (75-99)
[2019-02-03] MEDS: ATORVASTATIN 40 MG TAB PO SCH (21:06)
[2019-02-03] MEDS: valACYclovir 500 MG TAB PO SCH (22:25)
[2019-02-04] MEDS: ONDANSETRON 4 MG/2 ML VIAL IVP PRN (02:02)
[2019-02-04 07:36] LABS: Glucose,Whole Blood 95 mg/dL (75-99)
[2019-02-04 07:36] LABS: Glucose,Whole Blood 64 mg/dL (75-99)
[2019-02-04 07:36] LABS: Glucose,Whole Blood 66 mg/dL (75-99)
[2019-02-04 08:01] VITALS: BP 132/80; PULSE 69; RESP 16; TEMP 97.7
[2019-02-04 08:07] LABS: Anisocytosis Slight; HCT 26.1 % (34.0-46.0); HGB 8.3 gm/dL (11.4-16.0); MCH 31.2 pg (25.0-35.0); MCV 97.5 fL (80.0-100.0); Macrocytosis Slight; Platelet Count 223 k/uL (150-450); RBC 2.68 m/uL (3.80-5.40); RDW 16.1 % (11.5-15.5); WBC 4.7 k/uL (3.8-10.6)
[2019-02-04 08:14] LABS: INR 2.4 (<1.2); Partial Thromboplastin Time 73.3 sec (22.0-30.0); Prothrombin Time 23.3 sec (9.0-12.0)
[2019-02-04 08:15] LABS: Calcium 8.6 mg/dL (8.4-10.2); Potassium 4.7 mmol/L (3.5-5.1)
[2019-02-04] MEDS: INSULIN ASPART (NovoLOG) 100 UNIT/ML VIAL SQ SCH ×2 (09:13→12:19)
[2019-02-04] MEDS: FAMOTIDINE 20 MG TAB PO SCH (09:19)
[2019-02-04] MEDS: PANTOPRAZOLE 40 MG TABLET PO SCH (09:19)
[2019-02-04] MEDS: DOCUSATE 100 MG CAP PO SCH (09:19)
[2019-02-04] MEDS: amLODIPine 5 MG TAB PO SCH (09:20)
[2019-02-04] MEDS: LACTATED RINGERS 1,000 ML IV SCH (09:20)
[2019-02-04] MEDS: valACYclovir 500 MG TAB PO SCH (09:20)
[2019-02-04] MEDS: ASPIRIN 81 MG PO SCH (09:20)
[2019-02-04] MEDS: glipiZIDE 10 MG TAB PO SCH (09:20)
[2019-02-04] MEDS ORDERED: BISACODYL 10 MG SUPP RECTAL STA (10:54)
[2019-02-04] MEDS: HEPARIN SOD,PORK IN 0.45% NACL 25,000 UNIT in 0.45% NACL 1 250ML.BAG IV SCH (11:00)
--- NOTE | 2019-02-04 12:30 | P.DS ---
Providers Date of admission: 01/30/19 04:49 Expected date of discharge: 02/04/19 Attending physician: Lise Haynes [facility] Course: Final diagnosis Acute deep vein thrombosis of the left leg including the external iliac and popliteal vein, severe pain Anemia, normocytic anemia of chronic disease Acute renal failure possibly secondary to lisinopril, hydralazine, metformin use: Current creatinine has improved Rash on the upper middle of her back, possibly herpes zoster History of atrial fibrillation, paroxysmal Diabetes mellitus type 2 Hypertension Hyperlipidemia History of cerebrovascular accident 2 Gait dysfunction, wheelchair-bound History of cholecystectomy History of obesity with a body mass index of 31.3 Discharge disposition Patient is being discharged in a stable condition with guarded prognosis to [facility] and will continue to work with PT/OT. History of present illness This is a 73-year-old female who was recently admitted for acute DVT of the left lower extremity and was on IV heparin and is transitioning over to Coumadin and was being followed closely. Patient was unable to afford other anticoagulants at this time. Patient was also having a painful itchy rash of the upper mid back and is currently being treated with Valtrex and is to continue on this medication for the next 2 weeks. Patient will need to follow-up with primary care provider upon discharge for recheck. Patient has been having a couple episodes of nausea and vomiting and has been relieved with Zofran. Will continue with oral Zofran as needed. Patient continues to need encouragement on eating as she was not eating as well due to the nausea and fear of vomiting. Patient states that she normally is in a wheelchair at home and will need continuous PT/OT while in the rehab. Patient was bridged to Coumadin and will need a repeat PT/INR in 2-3 days to maintain therapeutic levels of an INR of 2- 3. Patient denies any chest pain, shortness of breath, or palpitations at this time. Patient remains afebrile. Patient also states that she has not had a bowel movement since she was admitted and Dulcolax was provided. May continue Dulcolax as needed for constipation. Patient is currently stable and will be going to [facility] for rehab today. Guarded prognosis On exam vital signs are stable. Blood pressure is 132/80, pulse is 69, temp is 97.7F, respirations are 16, oxygen saturation is 93% on room air. Cardio S1 and S2 are normal. Respiratory system shows diminished breath sounds at the bases otherwise clear upon auscultation. Abdomen is soft, obese, and nontender. Nervous system shows no focal deficits with mild diffuse weakness. Patient states she is wheelchair-bound at home. Please refer to medication reconciliation sheet for a list of medications. Patient Condition at Discharge: Fair Plan - Discharge Summary Discharge Rx Participant: Yes New Discharge Prescriptions: New Warfarin Sodium [Coumadin] 4 mg PO DAILY #30 tablet Bisacodyl [Dulcolax] 5 mg PO DAILY PRN #14 tablet. PRN Reason: Constipation HYDROcodone/APAP 5-325MG [[place] 5-325] 1 each PO Q4HR PRN #12 tab PRN Reason: Moderate Pain Pantoprazole [Protonix] 40 mg PO AC-BRKFST tablet. Acetaminophen Tab [Tylenol] 500 mg PO Q6HR PRN tab PRN Reason: Fever And/ Or Pain valACYclovir [Valtrex] 500 mg PO TID 14 Days #42 tab Ondansetron [Zofran] 4 mg PO Q8HR PRN #1 tab PRN Reason: Nausea Continue Ranitidine HCl [Zantac] 75 mg PO BID Atorvastatin [Lipitor] 40 mg PO HS Aspirin EC [Ecotrin Low Dose] 81 mg PO DAILY Changed glipiZIDE [Glucotrol] 5 mg PO AC-BID #0 Lisinopril 10 mg PO DAILY #0 Discontinued hydrALAZINE HCL [Apresoline] 50 mg PO Q8H metFORMIN HCL [Glucophage] 500 mg PO BID amLODIPine [Norvasc] 5 mg PO DAILY Discharge Medication List Aspirin EC [Ecotrin Low Dose] 81 mg PO DAILY 01/29/19 [History] Atorvastatin [Lipitor] 40 mg PO HS 01/29/19 [History] Ranitidine HCl [Zantac] 75 mg PO BID 01/29/19 [History] Acetaminophen Tab [Tylenol] 500 mg PO Q6HR PRN tab 02/04/19 [Rx] Bisacodyl [Dulcolax] 5 mg PO DAILY PRN #14 tablet. 02/04/19 [Rx] HYDROcodone/APAP 5-325MG [[place] 5-325] 1 each PO Q4HR PRN #12 tab 02/04/19 [Rx] Lisinopril 10 mg PO DAILY #0 02/04/19 [Rx] Ondansetron [Zofran] 4 mg PO Q8HR PRN #1 tab 02/04/19 [Rx] Pantoprazole [Protonix] 40 mg PO AC-BRKFST tablet. 02/04/19 [Rx] Warfarin Sodium [Coumadin] 4 mg PO DAILY #30 tablet 02/04/19 [Rx] glipiZIDE [Glucotrol] 5 mg PO AC-BID #0 02/04/19 [Rx] valACYclovir [Valtrex] 500 mg PO TID 14 Days #42 tab 02/04/19 [Rx] Follow up Appointment(s)/Referral(s): Will Ayers MD [STAFF PHYSICIAN] - 1-2 Days Zeke Beasley MD [Primary Care Provider] - 1-2 days [facility] Visiting Nurse, [NON-STAFF] - 1-2 Days Ambulatory/Diagnostic Orders: Basic Metabolic Panel [LAB.AMB] Time Frame: 2 Days, Location: None Selected Complete Blood Count w/diff [LAB.AMB] Time Frame: 2 Days, Location: None Selected Prothrombin Time INR [LAB.AMB] Time Frame: 2 Days, Location: None Selected Activity/Diet/Wound Care/Special Instructions: [facility] as tolerated Repeat labs in 2-3 days Continue current diet Continue to monitor blood sugars before meals at bedtime Follow-up with primary care provider once discharged Continue working with PT/OT Continue course of Valtrex for 2 weeks and then may discontinue. Follow-up with primary care provider upon discharge for recheck [employer] for new glucometer can be contacted at . Discharge Disposition: TRANSFER TO SNF/ECF
[2019-02-04 12:31] LABS: Glucose,Whole Blood 83 mg/dL (75-99)
[2019-02-04 12:50] VITALS: BMI 31.3
[2019-02-04] MEDS ORDERED: WARFARIN 5 MG TAB PO ONE (18:00)
== END 2019-02-04 15:16 | DRG 300 ==
LOC: EC 22:19 → 4MS4W 01-30 04:49 → OBSVTOIN 01-30 04:49
PROVIDERS: ADMIT Hospitalist; ATTEND Hospitalist
DX: I82.432 Acute embolism and thrombosis of left popliteal vein (principal); N17.9 Acute kidney failure, unspecified; I82.422 Acute embolism and thrombosis of left iliac vein; E11.9 Type 2 diabetes mellitus without complications; E66.9 Obesity, unspecified; B02.9 Zoster without complications; E78.5 Hyperlipidemia, unspecified; I10 Essential (primary) hypertension; T46.4X5A Adverse effect of angiotensin-converting-enzyme inhibitors, initial encounter; T46.5X5A Adverse effect of other antihypertensive drugs, initial encounter; T38.3X5A Adverse effect of insulin and oral hypoglycemic [antidiabetic] drugs, initial encounter; D63.8 Anemia in other chronic diseases classified elsewhere; I48.0 Paroxysmal atrial fibrillation; Z68.31 Body mass index [BMI] 31.0-31.9, adult; Z79.82 Long term (current) use of aspirin; Z86.718 Personal history of other venous thrombosis and embolism; Z86.73 Personal history of transient ischemic attack (TIA), and cerebral infarction without residual deficits; Z90.49 Acquired absence of other specified parts of digestive tract; Z99.3 Dependence on wheelchair; Z98.51 Tubal ligation status
CPT/HCPCS: 36415; 71045; 71046; 71250; 74176; 80048; 83036; 85025; 85027; 85610; 85730; 96365; 96366; 96376; 99284

== ENCOUNTER 2020-09-28 22:48 | Inpatient (IN) | payer MEDICARE ==
[2020-09-28] MEDS ORDERED: SODIUM CHLORIDE 0.9% 500 ML 500 ML IV STA (23:35)
--- NOTE | 2020-09-28 23:44 | ED ---
Weakness HPI - General Chief complaint: Weakness Stated complaint: weakness, ankle pain Time Seen by Provider: 09/28/20 23:15 Source: patient, family, RN notes reviewed Mode of arrival: wheelchair Limitations: physical limitation - History of Present Illness Initial comments: 75-year-old female patient brought in by family member for multiple falls. Fabian akhtar states she fell in her garage on September 26 and was taken to [facility] and diagnosed with a fracture right lower leg. Patient was discharged home and directed to follow up with orthopedics. She states she told them she was unable to get up on her own and they told her to "Army crawl" into her house. Patient states she was trying to elevate her legs as directed and slipped out of the wheelchair and stayed on the floor for 12 hours last night. Family member states that she went to the house to help her and brought her here to the emergency room. Patient is scheduled for surgery on Thursday at [facility] but doesn't remember the doctor's name. States seen orthopedics and had an EKG and blood work done to prepare for surgery. Family states that she is scheduled to go to [facility] on Thursday after surgery for rehab. Patient states at home she normally can take a couple steps from her wheelchair to the bathroom however since the has not been able to therefore she has been using depends undergarments to urinate in. Granddaughter at bedside states that they go over once a day to change her but is becoming increasingly difficult. Complaint: generalized weakness, difficulty walking -: days(s) (2) Location: generalized Severity scale (1-10): 8 Worsens with: movement Context: trauma/injury (fall 09/26) - Related Data Home Medications Medication Instructions Recorded Confirmed Pantoprazole [Protonix] 40 mg PO DAILY 09/28/20 09/28/20 Simvastatin [Zocor] 80 mg PO DAILY 09/28/20 09/28/20 Warfarin [Coumadin] 5 mg PO SUTUTHSA 09/28/20 09/28/20 Warfarin [Coumadin] 10 mg PO MOWEFR 09/28/20 09/28/20 amLODIPine [Norvasc] 5 mg PO DAILY 09/28/20 09/28/20 glipiZIDE [Glucotrol] 10 mg PO BID 09/28/20 09/28/20 lisinopriL [Zestril] 10 mg PO BID 09/28/20 09/28/20 Allergies Allergy/AdvReac Type Severity Reaction Status Date / Time No Known Allergies Allergy Verified 09/28/20 23:38 Review of Systems ROS Statement: Those systems with pertinent positive or pertinent negative responses have been documented in the HPI. ROS Other: All systems not noted in ROS Statement are negative. Past Medical History Past Medical History: Atrial Fibrillation, Diabetes Mellitus, Hyperlipidemia, Hypertension Additional Past Medical History / Comment(s): CVA x2, History of Any Multi-Drug Resistant Organisms: ESBL Date of last positivie culture/infection: 02/16/19 MDRO Source:: ESBL URINE Past Surgical History: Cholecystectomy, Tubal Ligation Past Anesthesia/Blood Transfusion Reactions: No Reported Reaction Past Psychological History: No Psychological Hx Reported Smoking Status: Never smoker Past Alcohol Use History: None Reported Past Drug Use History: None Reported General Exam Limitations: physical limitation General appearance: alert, in no apparent distress Head exam: Present: atraumatic, normocephalic, normal inspection Eye exam: Present: normal appearance, PERRL, EOMI. Absent: scleral icterus, conjunctival injection, periorbital swelling Pupils: Present: normal accommodation ENT exam: Present: normal exam (endentulous), normal oropharynx, mucous membranes moist, normal external ear exam Neck exam: Present: normal inspection, full ROM. Absent: tenderness, meni ngismus, lymphadenopathy Respiratory exam: Present: normal lung sounds bilaterally. Absent: respiratory distress, wheezes, rales, rhonchi, stridor, chest wall tenderness, accessory muscle use Cardiovascular Exam: Present: regular rate, normal heart sounds. Absent: systolic murmur, diastolic murmur, rubs, gallop, clicks GI/Abdominal exam: Present: soft, normal bowel sounds. Absent: distended, tenderness, guarding, rebound, rigid Extremities exam: Present: tenderness (right lower leg in splint, fercho wrap ), normal capillary refill. Absent: calf tenderness Neurological exam: Present: alert, oriented X3, CN II-XII intact Psychiatric exam: Present: normal affect, normal mood Skin exam: Present: warm, dry, intact, normal color. Absent: rash, cyanosis, diaphoretic Course Vital Signs 09/28/20 09/29/20 23:05 00:11 Temperature 97.9 F Pulse Rate 82 82 Respiratory 22 18 Rate Blood Pressure 141/62 136/76 O2 Sat by Pulse 96 97 Oximetry EKG Findings - EKG Results: EKG: sinus rhythm (Ventricular rate is 71, IA interval 0.154, QRS of 0.70, QTC 0.415, sinus rhythm with premature atrial complexes) Medical Decision Making - Medical Decision Making Chest x-ray shows no heart failure or infiltrates. There is no active cardiopulmonary disease. X-ray of the right tibia-fibula shows a non-displaced fracture of the fibular head. Splint is in place, neurovascularly intact, capillary refill less than 2 seconds. Patient states laid on the floor for 12 hours today, this is likely the cause of her elevated CPK at 783, patient was gi blake 500 mL of 0.9 normal saline. Hemoglobin and hematocrit is 10.6 and 33.2 respectively, WBC count of 7.2. BUN of 36 and a creatinine of 2.06 which is elevated from 01/2019 when it was 1.28. Case discussed with , will admit patient for weakness with multiple falls and acute kidney injury. - Lab Data Result diagrams: 09/28/20 23:46 09/28/20 23:46 Lab Results 09/28/20 09/28/20 09/28/20 Range/Units 23:46 23:46 23:46 WBC 7.2 (3.8-10.6) k/uL RBC 3.44 L (3.80-5.40) m/uL Hgb 10.6 L (11.4-16.0) gm/dL Hct 33.2 L (34.0-46.0) % MCV 96.6 (80.0-100.0) fL MCH 30.9 (25.0-35.0) pg MCHC 32.0 (31.0-37.0) g/dL RDW 13.8 (11.5-15.5) % Plt Count 171 (150-450) k/uL MPV 8.3 Neutrophils % 71 % Lymphocytes % 19 % Monocytes % 5 % Eosinophils % 4 % Basophils % 0 % Neutrophils # 5.1 (1.3-7.7) k/uL Lymphocytes # 1.4 (1.0-4.8) k/uL Monocytes # 0.3 (0-1.0) k/uL Eosinophils # 0.3 (0-0.7) k/uL Basophils # 0.0 (0-0.2) k/uL Sodium 139 (137-145) mmol/L Potassium 4.6 (3.5-5.1) mmol/L Chloride 107 (98-107) mmol/L Carbon Dioxide 23 (22-30) mmol/L Anion Gap 9 mmol/L BUN 36 H (7-17) mg/dL Creatinine 2.06 H (0.52-1.04) mg/dL Est GFR (CKD-EPI)AfAm 26 (>60 ml/min/1.73 sqM) Est GFR (CKD-EPI)NonAf 23 (>60 ml/min/1.73 sqM) Glucose 282 H (74-99) mg/dL Plasma Lactic Acid Blake 1.2 (0.7-2.0) mmol/L Calcium 8.8 (8.4-10.2) mg/dL Magnesium 1.9 (1.6-2.3) mg/dL Total Bilirubin 0.3 (0.2-1.3) mg/dL AST 26 (14-36) U/L ALT 12 (4-34) U/L Alkaline Phosphatase 98 (38-126) U/L Creatine Kinase 783 H (30-135) U/L Troponin I (0.000-0.034) ng/mL Total Protein 6.0 L (6.3-8.2) g/dL Albumin 3.6 (3.5-5.0) g/dL Urine Color Urine Appearance (Clear) Urine pH (5.0-8.0) Ur Specific [place] (1.001-1.035) Urine Protein (Negative) Urine Glucose (UA) (Negative) Urine Ketones (Negative) Urine Blood (Negative) Urine Nitrite (Negative) Urine Bilirubin (Negative) Urine Urobilinogen (<2.0) mg/dL Ur Leukocyte Esterase (Negative) Urine RBC (0-5) /hpf Urine WBC (0-5) /hpf Urine WBC Clumps (None) /hpf Ur Squamous Epith Cells (0-4) /hpf Urine Bacteria (None) /hpf Hyaline Casts (0-2) /lpf Urine Mucus (None) /hpf 09/28/20 09/29/20 Range/Units 23:46 00:36 WBC (3.8-10.6) k/uL RBC (3.80-5.40) m/uL Hgb (11.4-16.0) gm/dL Hct (34.0-46.0) % MCV (80.0-100.0) fL MCH (25.0-35.0) pg MCHC (31.0-37.0) g/dL RDW (11.5-15.5) % Plt Count (150-450) k/uL MPV Neutrophils % % Lymphocytes % % Monocytes % % Eosinophils % % Basophils % % Neutrophils # (1.3-7.7) k/uL Lymphocytes # (1.0-4.8) k/uL Monocytes # (0-1.0) k/uL Eosinophils # (0-0.7) k/uL Basophils # (0-0.2) k/uL Sodium (137-145) mmol/L Potassium (3.5-5.1) mmol/L Chloride (98-107) mmol/L Carbon Dioxide (22-30) mmol/L Anion Gap mmol/L BUN (7-17) mg/dL Creatinine (0.52-1.04) mg/dL Est GFR (CKD-EPI)AfAm (>60 ml/min/1.73 sqM) Est GFR (CKD-EPI)NonAf (>60 ml/min/1.73 sqM) Glucose (74-99) mg/dL Plasma Lactic Acid Blake (0.7-2.0) mmol/L Calcium (8.4-10.2) mg/dL Magnesium (1.6-2.3) mg/dL Total Bilirubin (0.2-1.3) mg/dL AST (14-36) U/L ALT (4-34) U/L Alkaline Phosphatase (38-126) U/L Creatine Kinase (30-135) U/L Troponin I <0.012 (0.000-0.034) ng/mL Total Protein (6.3-8.2) g/dL Albumin (3.5-5.0) g/dL Urine Color Yellow Urine Appearance Cloudy H (Clear) Urine pH 5.5 (5.0-8.0) Ur Specific [place] 1.023 (1.001-1.035) Urine Protein 1+ H (Negative) Urine Glucose (UA) Trace H (Negative) Urine Ketones Negative (Negative) Urine Blood Trace H (Negative) Urine Nitrite Negative (Negative) Urine Bilirubin Negative (Negative) Urine Urobilinogen 2.0 (<2.0) mg/dL Ur Leukocyte Esterase Large H (Negative) Urine RBC 5 (0-5) /hpf Urine WBC 111 H (0-5) /hpf Urine WBC Clumps Moderate H (None) /hpf Ur Squamous Epith Cells 1 (0-4) /hpf Urine Bacteria Many H (None) /hpf Hyaline Casts 31 H (0-2) /lpf Urine Mucus Rare H (None) /hpf Disposition Clinical Impression: BENITO (acute kidney injury), Weakness, Multiple falls, Fibula fracture Disposition: ADMITTED IP TO THIS HOSP Condition: Fair Referrals: Zeke Beasley MD [Primary Care Provider] - 1-2 days Decision Date: 09/29/20 Decision Time: 01:00
[2020-09-29 00:29] LABS: Albumin 3.6 g/dL (3.5-5.0); Calcium 8.8 mg/dL (8.4-10.2); Magnesium 1.9 mg/dL (1.6-2.3); Potassium 4.6 mmol/L (3.5-5.1); Total Bilirubin 0.3 mg/dL (0.2-1.3)
--- NOTE | 2020-09-29 00:29 | XR ---
EXAMINATION TYPE: XR tibia fibula RT DATE OF EXAM: 09/29/2020 COMPARISON: NONE HISTORY: Leg fracture. Fell on the leg. TECHNIQUE: 3 views FINDINGS: 3 views were obtained through the cast. Detail is limited. There is nondisplaced fracture o f the neck of the fibula head. There is osteopenia. There is vascular calcification. I see no displac ed fracture at the ankle. IMPRESSION: Fibula head fracture. No obvious ankle fracture. Limited exam.
--- NOTE | 2020-09-29 00:32 | XR ---
EXAMINATION TYPE: XR chest 1V DATE OF EXAM: 09/29/2020 COMPARISON: 02/03/2019 HISTORY: Weakness TECHNIQUE: FINDINGS: There is no heart failure nor confluent pneumonic infiltrate. Thoracic aorta is atheromatou s. Costophrenic angles are clear. There are chest leads. IMPRESSION: No active cardiopulmonary disease. No change.
[2020-09-29 00:33] LABS: Basophils % (A) 0 %; Eosinophils # (A) 0.3 k/uL (0-0.7); Eosinophils % (A) 4 %; HCT 33.2 % (34.0-46.0); HGB 10.6 gm/dL (11.4-16.0); Lymphocytes # (A) 1.4 k/uL (1.0-4.8); Lymphocytes % (A) 19 %; MCH 30.9 pg (25.0-35.0); MCV 96.6 fL (80.0-100.0); Mean Platelet Volume 8.3; Monocytes # (A) 0.3 k/uL (0-1.0); Monocytes % (A) 5 %; Neutrophils # (A) 5.1 k/uL (1.3-7.7); Neutrophils % (A) 71 %; Platelet Count 171 k/uL (150-450); RBC 3.44 m/uL (3.80-5.40); RDW 13.8 % (11.5-15.5); WBC 7.2 k/uL (3.8-10.6)
[2020-09-29] MEDS ORDERED: MORPHINE SULFATE 4 MG/ML SYRINGE IV PRN (00:42)
[2020-09-29] MEDS ORDERED: NALOXONE 0.4 MG/ML 1 ML VIAL IV PRN (00:42)
[2020-09-29 00:51] LABS: Appearance,Urine Cloudy (Clear); Bacteria,Urine Many /hpf; Bilirubin,Urine Negative (Negative); Blood,Urine Trace (Negative); Color,Urine Yellow; Glucose,Urine (UA) Trace (Negative); Hyaline Casts,Urine 31 /lpf (0-2); Ketones,Urine Negative (Negative); Leukocyte Esterase,Urine Large (Negative); Mucus,Urine Rare /hpf; Nitrite,Urine Negative (Negative); PH, Urine 5.5 (5.0-8.0); Protein,Urine 1+ (Negative); RBC,Urine 5 /hpf (0-5); Specific Gravity,Urine 1.023 (1.001-1.035); Squamous Epithelial Cell,Urine 1 /hpf (0-4); WBC,Urine 111 /hpf (0-5)
[2020-09-29 01:02] LABS: D-Dimer 1.55 mg/L FEU (<0.60); Partial Thromboplastin Time 47.5 sec (22.0-30.0); Prothrombin Time 105.6 sec (9.0-12.0)
[2020-09-29 01:19] LABS: INR >10.0 (<1.2)
[2020-09-29] MEDS: ONDANSETRON 4 MG/2 ML VIAL IVP PRN (01:33)
[2020-09-29] MEDS ORDERED: ONDANSETRON 4 MG/2 ML VIAL IVP STA (02:50)
[2020-09-29] MEDS ORDERED: PHYTONADIONE 5 MG in SODIUM CHLORIDE 0.9% 50 ML IVPB STA (03:04)
[2020-09-29 06:01] LABS: Glucose,Whole Blood 239 mg/dL (75-99)
[2020-09-29 06:05] LABS: Prothrombin Time 70.8 sec (9.0-12.0)
[2020-09-29 06:06] LABS: INR 7.3 (<1.2)
[2020-09-29] MEDS: INSULIN ASPART (NovoLOG) 100 UNIT/ML VIAL SQ SCH ×4 (06:50→20:35)
[2020-09-29] MEDS: PANTOPRAZOLE 40 MG/10 ML VIAL IV SCH (08:31)
[2020-09-29 09:20] LABS: Basophils % (A) 0 %; Eosinophils % (A) 1 %; HCT 28.3 % (34.0-46.0); HGB 9.7 gm/dL (11.4-16.0); Lymphocytes # (A) 0.7 k/uL (1.0-4.8); Lymphocytes % (A) 12 %; MCH 32.9 pg (25.0-35.0); MCHC 34.4 g/dL (31.0-37.0); MCV 95.7 fL (80.0-100.0); Mean Platelet Volume 8.1; Monocytes # (A) 0.2 k/uL (0-1.0); Monocytes % (A) 4 %; Neutrophils # (A) 4.3 k/uL (1.3-7.7); Neutrophils % (A) 82 %; Platelet Count 136 k/uL (150-450); RBC 2.96 m/uL (3.80-5.40); RDW 13.4 % (11.5-15.5); WBC 5.2 k/uL (3.8-10.6)
[2020-09-29 09:23] LABS: Potassium 4.6 mmol/L (3.5-5.1)
[2020-09-29] MEDS ORDERED: PHYTONADIONE ORAL 5 MG/5 ML ORAL.SYRG PO ONE (10:00)
--- NOTE | 2020-09-29 10:58 | XR ---
Right ankle HISTORY: Fracture Correlation to previous exam on same dated earlier time 3 views of the right ankle Soft tissue swelling is present. Medial malleolus shows a minimally displaced fracture. There is an o verlying splint present. No evident dislocation. Arthropathy changes are noted incidentally. No true lateral submitted. IMPRESSION: Fracture in splint.
[2020-09-29 12:24] LABS: Glucose,Whole Blood 275 mg/dL (75-99)
[2020-09-29] MEDS: ACETAMINOPHEN TAB 325 MG TAB PO PRN (12:54)
[2020-09-29] MEDS: traMADol 50 MG TAB PO PRN (12:54)
--- NOTE | 2020-09-29 14:19 | P.CNOR ---
History of Present Illness - [facility] Consult date: 09/29/20 Consult reason: fracture (right ankle medial malleolus fracture, right fibular head fracture) History of present illness: patient is a 75-year old female who was admitted to [facility] with regards to weakness and a history of recent falls.patient had a fallearly last week when she was getting in her wheelchair. She was evaluated at [facility], it was determined she had a fracture involving the right ankle since proximal right fibula. She was evaluated by orthopedics within a day or 2, she was placed in a splint and surgery was scheduled for later next week. Patient was then sent home, she's been home since the initial injury. She does live alone. Patient does not ambulate, she utilizes a wheelchair for getting around. Patient lives alone, she has a granddaughter that checks on her once or twice a week. Patient was evaluated today at bedside, she is resting comfortably. She does have a posterior short-leg splint with Pravin bandage fixation in place. She notes occasional discomfort in that ankle. She denies any pain involving the left lower extremity. She denies any bilateral upper extremity pain. She denies any new onset cervical, thoracic or lumbar pain. She denies any previous surgery of the right lower extremity. Sincerely initial fall, patient had a another fall within the last day or so at her house, she was on the ground for an extended period time. She noted no worsening pain of the right lower extremity. She has no other orthopedic compl aints sign. 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, blood clot in left leg, falls History of Any Multi-Drug Resistant Organisms: ESBL Year Discovered:: 02/16/19 MDRO Source:: ESBL URINE Past Surgical History: Cholecystectomy, Tubal Ligation Past Anesthesia/Blood Transfusion Reactions: No Reported Reaction Past Psychological History: No Psychological Hx Reported Smoking Status: Never smoker Past Alcohol Use History: None Reported Past Drug Use History: None Reported Medications and Allergies Home Medications Medication Instructions Recorded Confirmed Type Pantoprazole [Protonix] 40 mg PO DAILY 09/28/20 09/28/20 History Simvastatin [Zocor] 80 mg PO DAILY 09/28/20 09/28/20 History Warfarin [Coumadin] 5 mg PO SUTUTHSA 09/28/20 09/28/20 History Warfarin [Coumadin] 10 mg PO MOWEFR 09/28/20 09/28/20 History amLODIPine [Norvasc] 5 mg PO DAILY 09/28/20 09/28/20 History glipiZIDE [Glucotrol] 10 mg PO BID 09/28/20 09/28/20 History lisinopriL [Zestril] 10 mg PO BID 09/28/20 09/28/20 History Allergies Allergy/AdvReac Type Severity Reaction Status Date / Time No Known Allergies Allergy Verified 09/28/20 23:38 Physical Examination Right lower extremity: There is a posterior splint with Pravin wrap fixation on the right lower extremity. There is minimal soft tissue swelling in the toes. She is able to wiggle toes with no difficulty. Her sensation to light touch both proximal distal to the splinter intact. skin is warm to touch. Logroll maneuver reproduces no pain in the hip region. She is nontender of the proximal femur and greater trochanteric region. Gen. orthopedic exam: Range of motion of bilateral upper extremities intact with all major muscle groups, there is no point tenderness appreciated bilaterally. Left lower extremity demonstrates obvious open lesions or sores, there is no significant areas of erythema or soft tissue swelling. She is able to straight leg raise, logroll maneuver reproduces no pain. Hip flexion, knee extension, knee flexion, plantar flexion, dorsiflexion, EHL, FHL are intact. Calf is soft, there is no tenderness with palpation. Her sensory exam to light touch is intact throughout the extremity, dorsalis pedis pulses 2+. Results - Labs Labs: Abnormal Lab Results - Last 24 Hours (Table) 09/28/20 09/28/20 09/28/20 Range/Units 23:46 23:46 23:46 RBC 3.44 L (3.80-5.40) m/uL Hgb 10.6 L (11.4-16.0) gm/dL Hct 33.2 L (34.0-46.0) % Plt Count (150-450) k/uL Lymphocytes # (1.0-4.8) k/uL PT 105.6 H (9.0-12.0) sec INR >10.0 H* (<1.2) APTT 47.5 H (22.0-30.0) sec D-Dimer 1.55 H (<0.60) mg/L FEU Chloride (98-107) mmol/L Carbon Dioxide (22-30) mmol/L BUN 36 H (7-17) mg/dL Creatinine 2.06 H (0.52-1.04) mg/dL Glucose 282 H (74-99) mg/dL POC Glucose (mg/dL) (75-99) mg/dL Calcium (8.4-10.2) mg/dL Creatine Kinase 783 H (30-135) U/L Total Protein 6.0 L (6.3-8.2) g/dL Urine Appearance (Clear) Urine Protein (Negative) Urine Glucose (UA) (Negative) Urine Blood (Negative) Ur Leukocyte Esterase (Negative) Urine WBC (0-5) /hpf Urine WBC Clumps (None) /hpf Urine Bacteria (None) /hpf Hyaline Casts (0-2) /lpf Urine Mucus (None) /hpf 09/29/20 09/29/20 09/29/20 Range/Units 00:36 05:06 05:59 RBC (3.80-5.40) m/uL Hgb (11.4-16.0) gm/dL Hct (34.0-46.0) % Plt Count (150-450) k/uL Lymphocytes # (1.0-4.8) k/uL PT 70.8 H (9.0-12.0) sec INR 7.3 H* (<1.2) APTT (22.0-30.0) sec D-Dimer (<0.60) mg/L FEU Chloride (98-107) mmol/L Carbon Dioxide (22-30) mmol/L BUN (7-17) mg/dL Creatinine (0.52-1.04) mg/dL Glucose (74-99) mg/dL POC Glucose (mg/dL) 239 H (75-99) mg/dL Calcium (8.4-10.2) mg/dL Creatine Kinase (30-135) U/L Total Protein (6.3-8.2) g/dL Urine Appearance Cloudy H (Clear) Urine Protein 1+ H (Negative) Urine Glucose (UA) Trace H (Negative) Urine Blood Trace H (Negative) Ur Leukocyte Esterase Large H (Negative) Urine WBC 111 H (0-5) /hpf Urine WBC Clumps Moderate H (None) /hpf Urine Bacteria Many H (None) /hpf Hyaline Casts 31 H (0-2) /lpf Urine Mucus Rare H (None) /hpf 09/29/20 09/29/20 09/29/20 Range/Units 08:13 08:13 12:10 RBC 2.96 L (3.80-5.40) m/uL Hgb 9.7 L (11.4-16.0) gm/dL Hct 28.3 L (34.0-46.0) % Plt Count 136 L (150-450) k/uL Lymphocytes # 0.7 L (1.0-4.8) k/uL PT (9.0-12.0) sec INR (<1.2) APTT (22.0-30.0) sec D-Dimer (<0.60) mg/L FEU Chloride 112 H (98-107) mmol/L Carbon Dioxide 21 L (22-30) mmol/L BUN 35 H (7-17) mg/dL Creatinine 1.80 H (0.52-1.04) mg/dL Glucose 251 H (74-99) mg/dL POC Glucose (mg/dL) 275 H (75-99) mg/dL Calcium 8.0 L (8.4-10.2) mg/dL Creatine Kinase (30-135) U/L Total Protein (6.3-8.2) g/dL Urine Appearance (Clear) Urine Protein (Negative) Urine Glucose (UA) (Negative) Urine Blood (Negative) Ur Leukocyte Esterase (Negative) Urine WBC (0-5) /hpf Urine WBC Clumps (None) /hpf Urine Bacteria (None) /hpf Hyaline Casts (0-2) /lpf Urine Mucus (None) /hpf Microbiology - Last 24 Hours (Table) 09/29/20 00:36 Urine Culture - Preliminary Urine,Catheterized H & H 09/28/20 09/29/20 Range/Units 23:46 08:13 Hgb 10.6 L 9.7 L (11.4-16.0) gm/dL Hct 33.2 L 28.3 L (34.0-46.0) % Coagulation 09/28/20 09/29/20 Range/Units 23:46 05:06 INR >10.0 H* 7.3 H* (<1.2) Result Diagrams: 09/29/20 08:13 09/29/20 08:13 - Diagnostic results Ankle/Foot x-ray: report reviewed, image reviewed (Images demonstrated a minimally displaced medial malleolus fracture. The mortise joint remains intact, no obvious widening. there is a right proximal fibular head fracture, minimal displaced) Assessment and Plan Assessment: Right ankle medial malleolus fracture, minimally displaced Right fibular head fracture History of recent falls Other medical comorbidities Plan: I was able to discuss the case, including the physical exam findings and imaging studies my attending Dr. Whyte. We recommend no surgical intervention at this time. She will continue use of the long-leg splint. Patient would like her treatment at [facility]. She was made aware that the orthopedic surgeon that originally saw her does not operate at this hospital. She is scheduled for surgery next Thursday. I advised that she would like continuation of treatment from us that would not be a problem, we would plan for a short leg fiberglass cast with a nonweightbearing status. I advised that she talk with her family regarding this and we will discuss this further on 09/30/2020. Continue nonweightbearing status, continue use of the current splint Ice and elevate the extremity often Pain control, continue with oral medication Other medical specialty recommendations Further recommendations to follow Time with Patient: Less than 30
[2020-09-29 16:47] LABS: Glucose,Whole Blood 217 mg/dL (75-99)
[2020-09-29 18:18] LABS: INR 1.4 (<1.2); Prothrombin Time 13.8 sec (9.0-12.0)
[2020-09-29 18:19] LABS: Albumin 3.1 g/dL (3.5-5.0); Total Protein 5.2 g/dL (6.3-8.2)
[2020-09-29 18:20] LABS: Potassium 4.2 mmol/L (3.5-5.1); Total Bilirubin 0.5 mg/dL (0.2-1.3)
[2020-09-29 18:46] LABS: C Reactive Protein 7.8 mg/dL (<1.0)
[2020-09-29 20:00] LABS: Glucose,Whole Blood 203 mg/dL (75-99)
[2020-09-29] MEDS: glipiZIDE 10 MG TAB PO SCH (20:35)
--- NOTE | 2020-09-29 21:22 | HP ---
HISTORY AND PHYSICAL DATE OF SERVICE: 09/29/2020 CHIEF COMPLAINT: Weakness. HISTORY OF PRESENT ILLNESS: This 75-year-old woman with a past medical history of multiple medical problems including history of atrial fibrillation, CVA, TIA, diabetes mellitus, DVT, history of hypertension, hyperlipidemia, being followed by Dr. Singh and Dr. Beasley in the outpatient setting, apparently had a fall. The patient had right ankle fracture evaluated at [facility], scheduled for surgery by Orthopedic Surgery, but the patient was found in the basement and the patient unable to get up and the patient is only able to crawl and the patient was taken to [facility] and was admitted to the hospital for further evaluation and treatment. Evaluation by Orthopedic surgery revealed medial malleolus fracture and right fibular head fracture. The patient also had history of ESBL E coli. There is no history of fever, rigors or chills. No history of headache, loss of consciousness, seizures at this time. PAST MEDICAL HISTORY: History of atrial fibrillation, CVA, TIA, diabetes mellitus, DVT, hypertension, hyperlipidemia. MEDICATIONS: Coumadin, Zocor, Zestril, Glucotrol, Norvasc, Protonix. Doses reviewed. ALLERGIES: None. FAMILY HISTORY: No history of heart disease or strokes in the family. SOCIAL HISTORY: No history of smoking. No history of alcohol. REVIEW OF SYSTEMS: ENT: Diminished hearing. Diminished vision. CARDIOVASCULAR: No angina or palpitations. RESPIRATION: No cough. No hemoptysis. GI: As mentioned earlier. : No dysuria. NERVOUS SYSTEM: No numbness, weakness. ALLERGY/IMMUNOLOGY: No asthma or hayfever. MUSCULOSKELETAL: As mentioned earlier. HEMATOLOGY/ONCOLOGY: As mentioned earlier. ENDOCRINE: As mentioned earlier. CONSTITUTIONAL: As mentioned earlier. DERMATOLOGY: Negative. RHEUMATOLOGY: Negative. PSYCHIATRIC: As mentioned earlier. PHYSICAL EXAMINATION: Alert and oriented times three. Pulse 62, blood pressure 190/64, respiration 16, temperature 98.1, pulse ox 92 percent on room air. HEENT: Conjunctivae normal. Oral mucosa moist. NECK: No jugular venous distention. No carotid bruit. No lymph node enlargement. Cardiovascular system: S1, S2 muffled. No S3, no S4. RESPIRATORY: Breath sounds diminished at the bases. Scattered rhonchi and crackles. ABDOMEN: Soft, nontender. No mass palpable. LEGS: Status post cast on the right lower leg. NERVOUS SYSTEM: Higher functions as mentioned. Moves all four limbs. No focal deficits. LYMPHATICS: No lymph nodes palpable in the neck, axillae or groin. SKIN: No ulcer, rash and no bleeding. JOINTS: No active deforming arthropathy. LAB STUDIES: WBC 5.2, hemoglobin 9.7, platelets 136, creatinine is 1.80, glucose noted. ASSESSMENT: 1. Status post fall and right ankle fracture with right medial malleolus and right fibular head fracture. 2. Gait dysfunction. 3. Acute urinary tract infection present on admission. 4. Severe pain. 5. Coumadin coagulopathy. 6. Anemia, normocytic. 7. Thrombocytopenia. 8. Lymphopenia. 9. Increased creatinine with possibly acute on chronic kidney disease. 10.Chronic kidney disease stage 3 baseline. 11.Diabetes mellitus type 2. 12.History of atrial fibrillation. 13.History of cerebrovascular accident, transient ischemic attack. 14.History of deep vein thrombosis. 15.Hypertension. 16.Hyperlipidemia. 17.History of syncope. 18.History of cerebrovascular accident. 19.ESBL urine, urinary tract infection. 20.FULL COD. 21.Obesity with body mass 32.9. 22.Elevated D-dimer. RECOMMENDATIONS AND DISCUSSION: In this 75-year-old woman who presented with multiple complex medical issues, we will monitor the patient closely. Continue the current medications, management and symptomatic treatment. Otherwise, at this time, I recommend vitamin K has been given. Monitor PT, INR closely and orthopedic evaluation. I would continue with Rocephin. Monitor creatinine closely. IV fluids. The D-dimer is elevated. I would also recommend a V/Q scan because of the elevated creatinine. Chest x-ray did not show acute abnormality except elevated right hemidiaphragm. The prognosis guarded. Further recommendations to follow. MMODL / IJN: [id number] /
[2020-09-30 06:22] LABS: Glucose,Whole Blood 95 mg/dL (75-99)
[2020-09-30] MEDS: INSULIN ASPART (NovoLOG) 100 UNIT/ML VIAL SQ SCH ×4 (06:33→20:18)
[2020-09-30 09:04] LABS: Basophils % (A) 1 %; Eosinophils # (A) 0.3 k/uL (0-0.7); Eosinophils % (A) 7 %; HCT 27.3 % (34.0-46.0); HGB 9.2 gm/dL (11.4-16.0); Lymphocytes # (A) 1.5 k/uL (1.0-4.8); Lymphocytes % (A) 35 %; MCH 32.4 pg (25.0-35.0); MCHC 33.8 g/dL (31.0-37.0); Mean Platelet Volume 8.2; Monocytes # (A) 0.2 k/uL (0-1.0); Monocytes % (A) 5 %; Neutrophils # (A) 2.2 k/uL (1.3-7.7); Neutrophils % (A) 52 %; Platelet Count 143 k/uL (150-450); RBC 2.84 m/uL (3.80-5.40); RDW 13.5 % (11.5-15.5); WBC 4.3 k/uL (3.8-10.6)
[2020-09-30] MEDS: traMADol 50 MG TAB PO PRN (09:34)
[2020-09-30] MEDS: glipiZIDE 10 MG TAB PO SCH ×2 (09:34→20:18)
[2020-09-30] MEDS: ACETAMINOPHEN TAB 325 MG TAB PO PRN (09:35)
[2020-09-30] MEDS: amLODIPine 5 MG TAB PO SCH (09:35)
[2020-09-30] MEDS: PANTOPRAZOLE 40 MG/10 ML VIAL IV SCH (09:35)
[2020-09-30 10:42] LABS: INR 1.1 (<1.2); Prothrombin Time 11.2 sec (9.0-12.0)
[2020-09-30 11:57] LABS: Glucose,Whole Blood 217 mg/dL (75-99)
[2020-09-30] MEDS: HYDROcodone/APAP 5-325MG 1 EACH TAB PO PRN (13:22)
--- NOTE | 2020-09-30 14:11 | P.PN ---
<Maximus Medley - Last Filed: 09/30/20 14:08> Subjective Progress Note Date: 09/30/20 Principal diagnosis: Right ankle medial malleolus fracture, right talar head fracture Patient was evaluated today at bedside, Dr. Whyte was also available to evaluate the patient. We discussed the treatment options for her fracture. We discussed yesterday the possibility of casting and more of a nonoperative approach. We advised to the patient that she may follow-up with her surgeon if she wishes to after being discharged from the hospital. She would like to continue with the short leg cast placement and avoiding surgery at this time. She notes the pain is improving, she has no other orthopedic complaints. Objective - Vital Signs Vital signs: Vital Signs Temp 98.2 F 09/30/20 08:42 Pulse 64 09/30/20 11:50 Resp 16 09/30/20 11:50 BP 115/55 09/30/20 11:50 Pulse Ox 92 L 09/30/20 11:50 Intake & Output 09/29/20 09/30/20 09/30/20 18:59 06:59 18:59 Intake Total 952 100 240 Output Total 200 410 Balance 752 -310 240 Weight 110.5 kg Intake: Oral 952 100 240 Output: Urine 200 410 Other: Voiding Method External Catheter External Catheter External Catheter # Voids 1 - Exam Right lower extremity: The posterior splint was removed today at bedside, no obvious open lesions or sores are present. There was some obvious soft tissue swelling and bruising present in the lower part of the ankle. She had obvious tenderness with palpation over the medial malleolus and the right proximal fibula. She was nontender throughout the tibia and fibular shaft. Her sensation to light touch is intact throughout the extremity. The calf was soft, no tenderness with palpation. She is able to wiggle the toes with no difficulty. Plantarflexion and dorsiflexion does reproduce some discomfort. EHL and FHL are also intact. The skin was warm to touch. - Labs CBC & Chem 7: 09/30/20 07:52 09/29/20 17:48 Labs: Abnormal Lab Results - Last 24 Hours (Table) 09/29/20 09/29/20 09/29/20 Range/Units 16:32 17:48 17:48 RBC (3.80-5.40) m/uL Hgb (11.4-16.0) gm/dL Hct (34.0-46.0) % Plt Count (150-450) k/uL PT 13.8 H (9.0-12.0) sec INR 1.4 H (<1.2) Chloride 111 H (98-107) mmol/L BUN 37 H (7-17) mg/dL Creatinine 1.79 H (0.52-1.04) mg/dL Glucose 200 H (74-99) mg/dL POC Glucose (mg/dL) 217 H (75-99) mg/dL Calcium 8.0 L (8.4-10.2) mg/dL AST 50 H (14-36) U/L Lactate Dehydrogenase 658 H (313-618) U/L Creatine Kinase (30-135) U/L C-Reactive Protein 7.8 H (<1.0) mg/dL Total Protein 5.2 L (6.3-8.2) g/dL Albumin 3.1 L (3.5-5.0) g/dL 09/29/20 09/30/20 09/30/20 Range/Units 19:54 07:52 07:52 RBC 2.84 L (3.80-5.40) m/uL Hgb 9.2 L (11.4-16.0) gm/dL Hct 27.3 L (34.0-46.0) % Plt Count 143 L (150-450) k/uL PT (9.0-12.0) sec INR (<1.2) Chloride (98-107) mmol/L BUN (7-17) mg/dL Creatinine (0.52-1.04) mg/dL Glucose (74-99) mg/dL POC Glucose (mg/dL) 203 H (75-99) mg/dL Calcium (8.4-10.2) mg/dL AST (14-36) U/L Lactate Dehydrogenase (313-618) U/L Creatine Kinase 335 H (30-135) U/L C-Reactive Protein (<1.0) mg/dL Total Protein (6.3-8.2) g/dL Albumin (3.5-5.0) g/dL 09/30/20 Range/Units 11:48 RBC (3.80-5.40) m/uL Hgb (11.4-16.0) gm/dL Hct (34.0-46.0) % Plt Count (150-450) k/uL PT (9.0-12.0) sec INR (<1.2) Chloride (98-107) mmol/L BUN (7-17) mg/dL Creatinine (0.52-1.04) mg/dL Glucose (74-99) mg/dL POC Glucose (mg/dL) 217 H (75-99) mg/dL Calcium (8.4-10.2) mg/dL AST (14-36) U/L Lactate Dehydrogenase (313-618) U/L Creatine Kinase (30-135) U/L C-Reactive Protein (<1.0) mg/dL Total Protein (6.3-8.2) g/dL Albumin (3.5-5.0) g/dL Microbiology - Last 24 Hours (Table) 09/29/20 00:36 Urine Culture - Preliminary Urine,Catheterized Gram Neg Bacilli Assessment and Plan Assessment: Right ankle medial malleolus fracture, minimally displaced Right fibular head fracture History of recent falls Other medical comorbidities Plan: After discussion with the patient today at bedside, we decided to go ahead with a short leg fiberglass cast. This was applied at bedside, cast instructions wer e discussed. She will continue nonweightbearing at this time, continue to elevate the extremity often Other medical specially recommendations GI and DVT prophylaxis per primary medical service Recommend follow-up in the outpatient setting with Dr. Whyte in the next 10-14 days, she also may follow-up with her other orthopedic surgeon if she decides. Time with Patient: Less than 30 <Luigi Whyte - Last Filed: 10/01/20 08:12> Subjective Principal diagnosis: No talas fracture. Objective - Vital Signs Vital signs: Vital Signs Temp 98.4 F 10/01/20 04:00 Pulse 70 10/01/20 04:00 Resp 16 10/01/20 04:00 BP 175/75 10/01/20 04:00 Pulse Ox 92 L 10/01/20 04:00 Intake & Output 09/30/20 10/01/20 10/01/20 18:59 06:59 18:59 Intake Total 712 222 100 Output Total 250 200 300 Balance 462 22 -200 Weight 110.1 kg Intake: Intake, IV Titration 50 Amount cefTRIAXone 1 gm In 50 Sodium Chloride 0.9% 50 ml @ 100 mls/hr IVPB DAILY [facility] Rx#:[id number] Oral 662 222 100 Output: Urine 250 200 300 Other: Voiding Method External Catheter External Catheter - Labs CBC & Chem 7: 09/30/20 07:52 09/30/20 07:52 Labs: Abnormal Lab Results - Last 24 Hours (Table) 09/30/20 09/30/20 09/30/20 Range/Units 07:52 07:52 07:52 RBC 2.84 L (3.80-5.40) m/uL Hgb 9.2 L (11.4-16.0) gm/dL Hct 27.3 L (34.0-46.0) % Plt Count 143 L (150-450) k/uL Chloride 113 H (98-107) mmol/L Carbon Dioxide 21 L (22-30) mmol/L BUN 34 H (7-17) mg/dL Creatinine 1.70 H (0.52-1.04) mg/dL POC Glucose (mg/dL) (75-99) mg/dL Calcium 8.2 L (8.4-10.2) mg/dL Creatine Kinase 335 H (30-135) U/L Total Protein 5.1 L (6.3-8.2) g/dL Albumin 2.8 L (3.5-5.0) g/dL 09/30/20 09/30/20 09/30/20 Range/Units 11:48 16:49 20:09 RBC (3.80-5.40) m/uL Hgb (11.4-16.0) gm/dL Hct (34.0-46.0) % Plt Count (150-450) k/uL Chloride (98-107) mmol/L Carbon Dioxide (22-30) mmol/L BUN (7-17) mg/dL Creatinine (0.52-1.04) mg/dL POC Glucose (mg/dL) 217 H 162 H 161 H (75-99) mg/dL Calcium (8.4-10.2) mg/dL Creatine Kinase (30-135) U/L Total Protein (6.3-8.2) g/dL Albumin (3.5-5.0) g/dL 10/01/20 Range/Units 06:06 RBC (3.80-5.40) m/uL Hgb (11.4-16.0) gm/dL Hct (34.0-46.0) % Plt Count (150-450) k/uL Chloride (98-107) mmol/L Carbon Dioxide (22-30) mmol/L BUN (7-17) mg/dL Creatinine (0.52-1.04) mg/dL POC Glucose (mg/dL) 216 H (75-99) mg/dL Calcium (8.4-10.2) mg/dL Creatine Kinase (30-135) U/L Total Protein (6.3-8.2) g/dL Albumin (3.5-5.0) g/dL Microbiology - Last 24 Hours (Table) 09/29/20 17:48 Blood Culture - Preliminary Blood No Growth after 24 hours 09/29/20 00:36 Urine Culture - Preliminary Urine,Catheterized Gram Neg Bacilli Assessment and Plan Plan: After discussion with the patient today at bedside, we decided to go ahead with a short leg fiberglass cast. This was applied at bedside, cast instructions were discussed. She will continue nonweightbearing at this time, continue to elevate the extremity often Other medical specially recommendations GI and DVT prophylaxis per primary medical service Recommend follow-up in the outpatient setting with Dr. Whyte in the next 10-14 days, she also may follow-up with her other orthopedic surgeon if she decides. I have reviewed the note of WM Hernández and I agree. Pt would like to attempt non operative treatment with this ankle at this time. She was placed in a short leg cast that was well padded and well molded and consulted on cast care as well as NWB to that leg.
[2020-09-30 16:56] LABS: Glucose,Whole Blood 162 mg/dL (75-99)
[2020-09-30] MEDS: ONDANSETRON 4 MG/2 ML VIAL IVP PRN (17:40)
[2020-09-30 17:49] LABS: Albumin 2.8 g/dL (3.5-5.0); Calcium 8.2 mg/dL (8.4-10.2); Total Bilirubin 0.5 mg/dL (0.2-1.3); Total Protein 5.1 g/dL (6.3-8.2)
[2020-09-30 17:53] LABS: Potassium 4.2 mmol/L (3.5-5.1)
[2020-09-30] MEDS ORDERED: WARFARIN 5 MG TAB PO ONE (18:00)
--- NOTE | 2020-09-30 19:09 | PN ---
PROGRESS NOTE DATE OF SERVICE: 09/30/2020 This 75-year-old woman was admitted after a fall and right ankle fracture, complaints of weakness. The patient also had acute urinary tract infection with possible sepsis present on admission. The patient is on broad-spectrum IV antibiotics. Cultures are showing gram-negative bacilli. Orthopedic Surgery is following the patient closely. Orthopedic Surgery is planning continued conservative line of management without any ankle surgery right now. PAST MEDICAL HISTORY: Reviewed. REVIEW OF SYSTEMS: CARDIOVASCULAR: No angina. RESPIRATORY: As mentioned earlier. GI: No ulcer. : As mentioned earlier. NERVOUS SYSTEM: No numbness or weakness. CURRENT MEDICATIONS: Reviewed include Tylenol, [place], Norvasc, Rocephin, NovoLog, Narcan, morphine sulfate, Zofran, Protonix. PHYSICAL EXAM: Patient is alert and oriented. Pulse 60, blood pressure 170/81, respirations 16, temperature 97.2, pulse ox 93% on room air. HEENT: Conjunctivae normal. Oral mucosa moist. NECK: No jugular venous distention. No lymph node enlargement. CARDIOVASCULAR: S1, S2, muffled. No S3, no S4, RESPIRATORY: Diminished breath sounds at the bases. A few scattered rhonchi, no crackles. ABDOMEN: Soft, nontender. LEGS: No edema, no swelling. NERVOUS SYSTEM: No focal deficits. LAB STUDIES: WBC 9.2, glucose 162, creatinine is 1.79 yesterday. UA noted. ASSESSMENT: 1. Acute urinary tract infection with sepsis, present on admission. 2. Status post fall and right ankle fracture with right medial malleolus and right fibular fracture. 3. Gait dysfunction. 4. Change in mental status, acute metabolic encephalopathy. 5. Severe pain. 6. Coumadin coagulopathy. 7. Anemia, normocytic. 8. Thrombocytopenia. 9. Lymphopenia. 10.Increased creatinine with possible acute on chronic kidney disease with acute tubular necrosis. 11.Chronic kidney stage 3, baseline. 12.Diabetes mellitus type 2. 13.History of atrial fibrillation. 14.History of cerebrovascular accident/transient ischemic attack. 15.History of DVT. 16.Hypertension. 17.Hyperlipidemia. 18.History of syncope. 19.History of chronic venous insufficiency. 20.ESBL in the urine, urinary tract infection previously. 21.Obesity with body mass index of 32.9. 22.Elevated D-dimer. 23.FULL CODE. RECOMMENDATIONS AND DISCUSSION: Recommend to continue current management and symptomatic treatment. Otherwise, at this time continue the empiric antibiotics. I would recommend a V/Q scan. Other than that, continue with empiric antibiotics. Continue the rest of medications. Supplement vitamins and PT/OT evaluation. Orthopedic evaluation noted. Guarded prognosis because of multiple complex medical issues. Further recommendations to follow. MMODL / IJN: [id number] /
--- NOTE | 2020-09-30 19:34 | NM ---
EXAMINATION TYPE: NM pul vent and perfuse DATE OF EXAM: 09/30/2020 COMPARISON: NONE HISTORY: Short of breath TECHNIQUE: Utilizing inhalation of 68.8 mCi Tc 99m DTPA aerosol and intravenous injection of 5.1 mCi of Tc 99m MAA, ventilation and perfusion images are acquired post injection in multiple projections. FINDINGS: There is matching defect involving elevated right diaphragm evidence of the chest x-ray yesterday. Th ere is no ventilation/perfusion mismatch. There is no segmental or significant subsegmental perfusion defect.. IMPRESSION: There is low probability of pulmonary embolism.
[2020-09-30 20:10] LABS: Glucose,Whole Blood 161 mg/dL (75-99)
[2020-09-30] MEDS: HEPARIN SODIUM,PORCINE/PF 5,000 UNIT/0.5 ML SYRINGE SQ SCH (20:18)
--- NOTE | 2020-09-30 20:41 | XR ---
EXAMINATION TYPE: XR chest 1V portable DATE OF EXAM: 09/30/2020 COMPARISON: 09/29/2020 HISTORY: Short of breath TECHNIQUE: Single view FINDINGS: There is no heart failure nor confluent pneumonic infiltrate. There is mild elevation of th e right diaphragm. There are no hilar masses. There is no evidence of pleural effusion. Thoracic aort a is atheromatous. IMPRESSION: Mild elevation of the right diaphragm unchanged. No acute lung disease.
[2020-10-01 06:07] LABS: Glucose,Whole Blood 216 mg/dL (75-99)
[2020-10-01] MEDS: INSULIN ASPART (NovoLOG) 100 UNIT/ML VIAL SQ SCH ×4 (06:30→21:08)
[2020-10-01] MEDS: HEPARIN SODIUM,PORCINE/PF 5,000 UNIT/0.5 ML SYRINGE SQ SCH ×2 (08:54→21:07)
[2020-10-01] MEDS: HYDROcodone/APAP 5-325MG 1 EACH TAB PO PRN ×2 (08:54→21:11)
[2020-10-01] MEDS: PANTOPRAZOLE 40 MG/10 ML VIAL IV SCH (08:54)
[2020-10-01] MEDS: amLODIPine 5 MG TAB PO SCH (08:55)
[2020-10-01] MEDS: glipiZIDE 10 MG TAB PO SCH ×2 (08:55→21:07)
--- NOTE | 2020-10-01 10:11 | P.PN ---
<GalindoMaricruzs M - Last Filed: 10/01/20 10:10> Subjective Progress Note Date: 10/01/20 Principal diagnosis: Right ankle medial malleolus fracture, right talar head fracture Patient was evaluated today at bedside, she is resting comfortably. She states that the right leg is feeling well at this time. She states the pain is seems better today. She denies any numbness or tingling of the lower extremity. She has no other orthopedic complaint at this time. Objective - Vital Signs Vital signs: Vital Signs Temp 99.7 F H 10/01/20 08:50 Pulse 67 10/01/20 08:50 Resp 18 10/01/20 08:50 BP 131/64 10/01/20 08:50 Pulse Ox 91 L 10/01/20 08:50 Intake & Output 09/30/20 10/01/20 10/01/20 18:59 06:59 18:59 Intake Total 712 222 100 Output Total 250 200 300 Balance 462 22 -200 Weight 110.1 kg Intake: Intake, IV Titration 50 Amount cefTRIAXone 1 gm In 50 Sodium Chloride 0.9% 50 ml @ 100 mls/hr IVPB DAILY [facility] Rx#:[id number] Oral 662 222 100 Output: Urine 250 200 300 Other: Voiding Method External Catheter External Catheter - Exam Right lower extremity: Short-leg fiberglass cast is in good position and condition. There is no obvious soft tissue swelling in the toes. She is able to wiggle toes and no difficulty. Her sensation to light touch both proximal distal to the cast room intact. - Labs CBC & Chem 7: 09/30/20 07:52 09/30/20 07:52 Labs: Abnormal Lab Results - Last 24 Hours (Table) 09/30/20 09/30/20 09/30/20 Range/Units 07:52 11:48 16:49 Chloride 113 H (98-107) mmol/L Carbon Dioxide 21 L (22-30) mmol/L BUN 34 H (7-17) mg/dL Creatinine 1.70 H (0.52-1.04) mg/dL POC Glucose (mg/dL) 217 H 162 H (75-99) mg/dL Calcium 8.2 L (8.4-10.2) mg/dL Total Protein 5.1 L (6.3-8.2) g/dL Albumin 2.8 L (3.5-5.0) g/dL 09/30/20 10/01/20 Range/Units 20:09 06:06 Chloride (98-107) mmol/L Carbon Dioxide (22-30) mmol/L BUN (7-17) mg/dL Creatinine (0.52-1.04) mg/dL POC Glucose (mg/dL) 161 H 216 H (75-99) mg/dL Calcium (8.4-10.2) mg/dL Total Protein (6.3-8.2) g/dL Albumin (3.5-5.0) g/dL Microbiology - Last 24 Hours (Table) 09/29/20 17:48 Blood Culture - Preliminary Blood No Growth after 24 hours 09/29/20 00:36 Urine Culture - Preliminary Urine,Catheterized Gram Neg Bacilli Assessment and Plan Assessment: Right ankle medial malleolus fracture, minimally displaced Right fibular head fracture History of recent falls Other medical comorbidities Plan: An orthopedic standpoint recommend permanent rehab placement for this patient due to her other medical comorbidities and need for assistance with ADLs. She will need follow-up either with the orthopedic surgeon she is a 30 seen or orthopedic group in the next 2 weeks for x-ray evaluation She'll continue use the fiberglass cast at this time. We will be signing off patient at this time, please don't hesitate to contact us with any further questions Time with Patient: Less than 30 <Luigi Whyte - Last Filed: 10/01/20 10:26> Subjective Principal diagnosis: No talar head fracture Objective - Vital Signs Vital signs: Vital Signs Temp 99.7 F H 10/01/20 08:50 Pulse 67 10/01/20 08:50 Resp 18 10/01/20 08:50 BP 131/64 10/01/20 08:50 Pulse Ox 91 L 10/01/20 08:50 Intake & Output 09/30/20 10/01/20 10/01/20 18:59 06:59 18:59 Intake Total 712 222 100 Output Total 250 200 300 Balance 462 22 -200 Weight 110.1 kg Intake: Intake, IV Titration 50 Amount cefTRIAXone 1 gm In 50 Sodium Chloride 0.9% 50 ml @ 100 mls/hr IVPB DAILY [facility] Rx#:[id number] Oral 662 222 100 Output: Urine 250 200 300 Other: Voiding Method External Catheter External Catheter - Labs CBC & Chem 7: 09/30/20 07:52 09/30/20 07:52 Labs: Abnormal Lab Results - Last 24 Hours (Table) 09/30/20 09/30/20 09/30/20 Range/Units 07:52 11:48 16:49 Chloride 113 H (98-107) mmol/L Carbon Dioxide 21 L (22-30) mmol/L BUN 34 H (7-17) mg/dL Creatinine 1.70 H (0.52-1.04) mg/dL POC Glucose (mg/dL) 217 H 162 H (75-99) mg/dL Calcium 8.2 L (8.4-10.2) mg/dL Total Protein 5.1 L (6.3-8.2) g/dL Albumin 2.8 L (3.5-5.0) g/dL 09/30/20 10/01/20 Range/Units 20:09 06:06 Chloride (98-107) mmol/L Carbon Dioxide (22-30) mmol/L BUN (7-17) mg/dL Creatinine (0.52-1.04) mg/dL POC Glucose (mg/dL) 161 H 216 H (75-99) mg/dL Calcium (8.4-10.2) mg/dL Total Protein (6.3-8.2) g/dL Albumin (3.5-5.0) g/dL Microbiology - Last 24 Hours (Table) 09/29/20 17:48 Blood Culture - Preliminary Blood No Growth after 24 hours 09/29/20 00:36 Urine Culture - Preliminary Urine,Catheterized Gram Neg Bacilli
[2020-10-01 10:43] LABS: Basophils % (A) 1 %; Eosinophils # (A) 0.2 k/uL (0-0.7); Eosinophils % (A) 6 %; HCT 26.5 % (34.0-46.0); Lymphocytes # (A) 1.2 k/uL (1.0-4.8); Lymphocytes % (A) 30 %; MCH 32.9 pg (25.0-35.0); MCHC 34.2 g/dL (31.0-37.0); MCV 96.5 fL (80.0-100.0); Mean Platelet Volume 7.9; Monocytes # (A) 0.2 k/uL (0-1.0); Monocytes % (A) 5 %; Neutrophils # (A) 2.2 k/uL (1.3-7.7); Neutrophils % (A) 56 %; Platelet Count 155 k/uL (150-450); RBC 2.74 m/uL (3.80-5.40); RDW 13.3 % (11.5-15.5); WBC 3.9 k/uL (3.8-10.6)
[2020-10-01 10:44] LABS: Prothrombin Time 10.7 sec (9.0-12.0)
[2020-10-01 11:56] LABS: Glucose,Whole Blood 198 mg/dL (75-99)
[2020-10-01] MEDS: MULTIVITAMINS, THERA 1 EACH TAB PO SCH (13:04)
[2020-10-01] MEDS: FOLIC ACID 1 MG TAB PO SCH (13:04)
[2020-10-01] MEDS: SENNOSIDES 8.6 MG TAB PO SCH ×2 (13:04→21:07)
[2020-10-01] MEDS: THIAMINE 100 MG TAB PO SCH (13:04)
[2020-10-01 17:17] LABS: Glucose,Whole Blood 223 mg/dL (75-99)
[2020-10-01] MEDS ORDERED: WARFARIN 5 MG TAB PO ONE (18:00)
--- NOTE | 2020-10-01 18:56 | PN ---
PROGRESS NOTE DATE OF SERVICE: 10/01/2020 This 75-year-old woman who was admitted with acute UTI with possible sepsis, present on admission, also had a fracture of the ankle. A V/Q scan has been done which showed only low probability of pulmonary embolism. Patient is being closely monitored. The most recent chest x-ray, which I reviewed personally, showed no significant acute abnormality. PHYSICAL EXAMINATION: Alert and oriented x3. The pulse is 61, blood pressure 143/68, respiration 18, temperature 97.8, pulse ox 94% on room air. HEENT: Conjunctivae normal. NECK: No jugular venous distention. CARDIOVASCULAR SYSTEM: S1, S2 muffled. RESPIRATORY SYSTEM: Breath sounds diminished at the bases. A few scattered rhonchi. ABDOMEN: Soft, non-tender. NERVOUS SYSTEM: No focal deficit. LABS: WBC 3.9, hemoglobin is 9. Glucose 198 and 223. ASSESSMENT: 1. Acute urinary tract infection with sepsis, present on admission. 2. Status post fall and right ankle fracture with right medial malleolus and right fibular head fracture. 3. Gait dysfunction. 4. Change in mental status, acute metabolic encephalopathy. 5. Severe pain. 6. Coumadin coagulopathy. 7. Anemia, normocytic. 8. Thrombocytopenia. 9. Lymphopenia. 10.Increased creatinine with possible acute on chronic kidney disease with acute tubular necrosis. 11.Chronic kidney disease, stage 3 baseline. 12.Diabetes mellitus, type 2. 13.History of atrial fibrillation. 14.History of cerebrovascular accident, transient ischemic attack. 15.History of deep venous thrombosis. 16.Hypertension. 17.Hyperlipidemia. 18.History of syncope. 19.History of chronic venous insufficiency. 20.Extended-spectrum beta-lactamase in the urine and urinary tract infection previously. 21.Obesity with body mass index of 32.9. 22.Elevated D-dimer. 23.FULL CODE. RECOMMENDATIONS AND DISCUSSION: I recommend to continue current medications, continue with the monitoring, symptomatic treatment. We will administer Coumadin dosing and continue to monitor. Closely follow. Further recommendations to follow. MMODL / IJN: [id number] /
[2020-10-01 20:42] LABS: Glucose,Whole Blood 256 mg/dL (75-99)
[2020-10-02] MEDS: INSULIN ASPART (NovoLOG) 100 UNIT/ML VIAL SQ SCH ×3 (06:35→17:34)
[2020-10-02] MEDS: HEPARIN SODIUM,PORCINE/PF 5,000 UNIT/0.5 ML SYRINGE SQ SCH (08:02)
[2020-10-02] MEDS: HYDROcodone/APAP 5-325MG 1 EACH TAB PO PRN ×2 (08:02→15:09)
[2020-10-02] MEDS: SENNOSIDES 8.6 MG TAB PO SCH (08:02)
[2020-10-02] MEDS: glipiZIDE 10 MG TAB PO SCH (08:02)
[2020-10-02] MEDS: amLODIPine 5 MG TAB PO SCH (08:02)
[2020-10-02 08:18] LABS: Glucose,Whole Blood 187 mg/dL (75-99)
[2020-10-02 08:21] VITALS: BP 142/83; PULSE 69; RESP 18; TEMP 98.7
[2020-10-02] MEDS ORDERED: PANTOPRAZOLE 40 MG TABLET PO SCH (09:00)
[2020-10-02 09:28] LABS: Prothrombin Time 10.3 sec (9.0-12.0)
[2020-10-02 12:02] LABS: Glucose,Whole Blood 151 mg/dL (75-99)
[2020-10-02] MEDS: FOLIC ACID 1 MG TAB PO SCH (13:02)
[2020-10-02] MEDS: MULTIVITAMINS, THERA 1 EACH TAB PO SCH (13:02)
[2020-10-02] MEDS: THIAMINE 100 MG TAB PO SCH (13:02)
--- NOTE | 2020-10-02 14:23 | P.DS ---
Providers Date of admission: 09/29/20 00:42 Expected date of discharge: 10/02/20 Attending physician: Reese Byrne Consults: 09/29/20 09:34 Consult Physician Routine Consulting Provider: Panchito Hernandez Consult Reason/Comments: Right fibula fx Do you want consulting provider notified?: Yes Primary care physician: [facility] Course: Final diagnosis Acute urinary tract infection with sepsis, present on admission Status post fall and right ankle fracture and right medial malleolus and right fibular head fracture Gait dysfunction Change in mental status, acute metabolic encephalopathy Severe pain Coumadin coagulopathy Anemia, normocytic Thrombocytopenia lymphopenia Increased creatinine with possible acute on chronic kidney disease with acute tubular necrosis Chronic kidney disease stage III baseline Diabetes mellitus type 2 History of atrial fibrillation History of CVA, TIA history of DVT hypertension Hyperlipidemia history of syncope history of chronic venous insufficiency ESBL in the urine and urinary tract infection previously Obesity with a BMI of 32.9 Elevated d-dimer Full code Discharge disposition Patient is being discharged in a stable condition with guarded prognosis to [facility]. Patient will follow-up with Dr. Ayers upon discharge. Patient will continue with a short course of oral antibiotics in the form of Ceftin 500 mg twice daily for the next 5 days to complete the course. Total time taken is greater than 35 minutes. Hospital course This is a 75-year-old female who was recently admitted with acute urinary tract infection with possible sepsis, present on admission also had a fracture of the ankle and is being closely monitored. Was seen and evaluated by orthopedic surgery and continuing with conservative management at this time. Patient will follow-up with orthopedics in the outpatient setting. Patient culture finalized with urinary tract infection showing E. coli and was on IV ceftriaxone and will continue with oral Ceftin 500 mg twice daily for the next 5 days to complete the course. Patient was resumed on Coumadin and prescription provided and recommend repeat labs to monitor PT/INR along with hemoglobin and kidney functions. Currently no reports of chest pain, shortness of breath, or palpitations. Patient is afebrile. No reports of nausea or vomiting and patient is tolerating diet. Patient and family will further discuss palliative care in the outpatient setting. Guarded prognosis. On exam vital signs are stable. Cardio S1, S2 are muffled. Respiratory shows diminished breath sounds at the bases with no wheezing or rhonchi noted. Abdomen is soft and nontender. Nervous system shows mild diffuse weakness. Please refer to medication reconciliation sheet for a list of medications. Patient Condition at Discharge: Fair Plan - Discharge Summary Discharge Rx Participant: Yes New Discharge Prescriptions: New HYDROcodone/APAP 5-325MG [[place] 5-325] 1 each PO Q6HR PRN #12 tab PRN Reason: Moderate Pain Sennosides [Senokot] 8.6 mg PO BID tab Acetaminophen Tab [Tylenol] 650 mg PO Q6HR PRN tab PRN Reason: Mild Pain Or Fever > 100.5 Thiamine [Vitamin B-1] 100 mg PO DAILY@1200 tab Cefuroxime Axetil [Ceftin] 500 mg PO BID 5 Days #10 tab Folic Acid 1 mg PO DAILY@1200 tab Multivitamins, Thera [Multivitamin (formulary)] 1 each PO DAILY@1200 tab Continue Warfarin [Coumadin] 5 mg PO SUTUTHSA Simvastatin [Zocor] 80 mg PO DAILY glipiZIDE [Glucotrol] 10 mg PO BID Pantoprazole [Protonix] 40 mg PO DAILY Warfarin [Coumadin] 10 mg PO MOWEFR amLODIPine [Norvasc] 5 mg PO DAILY Discontinued lisinopriL [Zestril] 10 mg PO BID Discharge Medication List Pantoprazole [Protonix] 40 mg PO DAILY 09/28/20 [History] Simvastatin [Zocor] 80 mg PO DAILY 09/28/20 [History] Warfarin [Coumadin] 5 mg PO SUTUTHSA 09/28/20 [History] Warfarin [Coumadin] 10 mg PO MOWEFR 09/28/20 [History] amLODIPine [Norvasc] 5 mg PO DAILY 09/28/20 [History] glipiZIDE [Glucotrol] 10 mg PO BID 09/28/20 [History] Acetaminophen Tab [Tylenol] 650 mg PO Q6HR PRN tab 10/02/20 [Rx] Cefuroxime Axetil [Ceftin] 500 mg PO BID 5 Days #10 tab 10/02/20 [Rx] Folic Acid 1 mg PO DAILY@1200 tab 10/02/20 [Rx] HYDROcodone/APAP 5-325MG [[place] 5-325] 1 each PO Q6HR PRN #12 tab 10/02/20 [Rx] Multivitamins, Thera [Multivitamin (formulary)] 1 each PO DAILY@1200 tab 10/02/20 [Rx] Sennosides [Senokot] 8.6 mg PO BID tab 10/02/20 [Rx] Thiamine [Vitamin B-1] 100 mg PO DAILY@1200 tab 10/02/20 [Rx] Follow up Appointment(s)/Referral(s): Will Ayers MD [STAFF PHYSICIAN] - 1-2 Days Zeke Beasley MD [Primary Care Provider] - 1-2 days Luigi Whyte DO [Doctor of Osteopathic Medicine] - 2 Weeks Ambulatory/Diagnostic Orders: Complete Blood Count w/diff [LAB.AMB] Time Frame: 2 Days, Location: None Selected Activity/Diet/Wound Care/Special Instructions: Orthopedic discharge instructions: 1. Nonweightbearing right lower extremity 2. Keep the extremity elevated often 3. Keep cast covered and dry while showering 4. [facility] 2 weeks for recheck with Dr. Whyte, with any questions Patient is going to [facility] Continue with antibiotics for the next 5 days and then may discontinue Resume Coumadin and repeat labs in 1-2 days to monitor PT/INR Repeat CBC and BMP in 2-3 days Discharge Disposition: TRANSFER TO SNF/ECF
[2020-10-02 17:12] LABS: Glucose,Whole Blood 216 mg/dL (75-99)
[2020-10-02] MEDS ORDERED: WARFARIN 7.5 MG TAB PO ONE (18:00)
== END 2020-10-02 17:43 | DRG 871 ==
LOC: EC 22:48 → 4SSUR 09-29 00:42 → 3SCARD 09-29 01:46
PROVIDERS: ADMIT Hospitalist; ATTEND Hospitalist
DX: A41.9 Sepsis, unspecified organism (principal); G93.41 Metabolic encephalopathy; N17.0 Acute kidney failure with tubular necrosis; N39.0 Urinary tract infection, site not specified; D64.9 Anemia, unspecified; D69.6 Thrombocytopenia, unspecified; D72.810 Lymphocytopenia; E11.22 Type 2 diabetes mellitus with diabetic chronic kidney disease; E66.9 Obesity, unspecified; E78.5 Hyperlipidemia, unspecified; I12.9 Hypertensive chronic kidney disease with stage 1 through stage 4 chronic kidney disease, or unspecified chronic kidney disease; I48.91 Unspecified atrial fibrillation; N18.30 Chronic kidney disease, stage 3 unspecified; R29.6 Repeated falls; R56.9 Unspecified convulsions; R79.1 Abnormal coagulation profile; T45.515A Adverse effect of anticoagulants, initial encounter; S82.53XA Displaced fracture of medial malleolus of unspecified tibia, initial encounter for closed fracture; Z20.822 Contact with and (suspected) exposure to COVID-19; S82.831A Other fracture of upper and lower end of right fibula, initial encounter for closed fracture; S92.121A Displaced fracture of body of right talus, initial encounter for closed fracture; Z68.32 Body mass index [BMI] 32.0-32.9, adult; R65.20 Severe sepsis without septic shock; Z79.01 Long term (current) use of anticoagulants; Z79.84 Long term (current) use of oral hypoglycemic drugs; Z79.899 Other long term (current) drug therapy; I87.2 Venous insufficiency (chronic) (peripheral); Z86.19 Personal history of other infectious and parasitic diseases; R26.9 Unspecified abnormalities of gait and mobility; Z86.718 Personal history of other venous thrombosis and embolism; Z86.73 Personal history of transient ischemic attack (TIA), and cerebral infarction without residual deficits; W05.0XXA Fall from non-moving wheelchair, initial encounter; Z87.440 Personal history of urinary (tract) infections; Z90.49 Acquired absence of other specified parts of digestive tract; Z98.51 Tubal ligation status
CPT/HCPCS: 36415; 71045; 78582; 80048; 80053; 81001; 82550; 82728; 83605; 83615; 83735; 84484; 85025; 85379; 85610; 85730; 86140; 87040; 87077; 87086; 87186; 87635; 93005; 96360; 99285

== ENCOUNTER 2020-12-23 20:20 | Emergency (ER) | payer MEDICARE ==
[2020-12-23 20:26] VITALS: TEMP 98.2
--- NOTE | 2020-12-23 20:53 | ED ---
General Adult HPI - General Chief complaint: Extremity Problem,Nontraumatic Stated complaint: R leg pain & Swelling Source: patient, RN notes reviewed Mode of arrival: ambulatory Limitations: no limitations - History of Present Illness Initial comments: 75-year-old white female, alert and oriented 4, presents to the emergency room with complaints of right leg swelling for one week. Patient states that over the past week both of her feet have been swelling but she states that the right leg feels more swollen to her. Denies any chest pain or shortness of breath, no fevers or cough. She states that she broke her ankle and right lower leg back in September and she just had the splints removed 2 weeks ago. She is concerned for another DVT. She states that she is on coumadin and she did see her primary care doctor on when he was adjusting her coumadin dosing. Patient states that she can only ambulate a few steps with her walker otherwise she uses her wheelchair. She does have a history of A. fib, CVA, DVT, hypertension and [id number] diabetes. -: week(s) (1) Location: right, lower extremity Severity scale (1-10): 0 Quality: other (Tightness) Consistency: constant Improves with: other Worsens with: none (Elevation) Associated Symptoms: other (Bilateral lower extremity swelling) Treatments Prior to Arrival: none - Related Data Home Medications Medication Instructions Recorded Confirmed Pantoprazole [Protonix] 40 mg PO DAILY 09/28/20 09/28/20 Simvastatin [Zocor] 80 mg PO DAILY 09/28/20 09/28/20 Warfarin [Coumadin] 5 mg PO SUTUTHSA 09/28/20 09/28/20 Warfarin [Coumadin] 10 mg PO MOWEFR 09/28/20 09/28/20 amLODIPine [Norvasc] 5 mg PO DAILY 09/28/20 09/28/20 glipiZIDE [Glucotrol] 10 mg PO BID 09/28/20 09/28/20 Previous Rx's Medication Instructions Recorded Acetaminophen Tab [Tylenol] 650 mg PO Q6HR PRN tab 10/02/20 Cefuroxime Axetil [Ceftin] 500 mg PO BID 5 Days #10 tab 10/02/20 Folic Acid 1 mg PO DAILY@1200 tab 10/02/20 HYDROcodone/APAP 5-325MG [[place] 1 each PO Q6HR PRN #12 tab 10/02/20 5-325] Multivitamins, Thera [Multivitamin 1 each PO DAILY@1200 tab 10/02/20 (formulary)] Sennosides [Senokot] 8.6 mg PO BID tab 10/02/20 Thiamine [Vitamin B-1] 100 mg PO DAILY@1200 tab 10/02/20 Allergies Allergy/AdvReac Type Severity Reaction Status Date / Time No Known Allergies Allergy Verified 12/23/20 20:26 Review of Systems ROS Statement: Those systems with pertinent positive or pertinent negative responses have been documented in the HPI. ROS Other: All systems not noted in ROS Statement are negative. 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, blood clot in left leg, falls History of Any Multi-Drug Resistant Organisms: ESBL Date of last positivie culture/infection: 02/16/19 MDRO Source:: ESBL URINE Past Surgical History: Cholecystectomy, Tubal Ligation Past Anesthesia/Blood Transfusion Reactions: No Reported Reaction Past Psychological History: No Psychological Hx Reported Smoking Status: Never smoker Past Alcohol Use History: None Reported Past Drug Use History: None Reported General Exam Limitations: no limitations General appearance: alert, in no apparent distress Head exam: Present: atraumatic, normocephalic, normal inspection Eye exam: Present: normal appearance, PERRL, EOMI. Absent: scleral icterus, conjunctival injection, periorbital swelling Pupils: Present: normal accommodation ENT exam: Present: normal exam, normal oropharynx, mucous membranes moist Neck exam: Present: normal inspection, full ROM. Absent: tenderness, meningismus, lymphadenopathy, thyromegaly Respiratory exam: Present: normal lung sounds bilaterally (Diminished at bases). Absent: respiratory distress, wheezes, rales, rhonchi, stridor, chest wall tenderness, accessory muscle use Cardiovascular Exam: Present: regular rate, normal rhythm, normal heart sounds. Absent: systolic murmur, diastolic murmur, rubs, gallop, clicks, JVD GI/Abdominal exam: Present: soft, normal bowel sounds. Absent: distended, tenderness, guarding, rebound, rigid Extremities exam: Present: normal inspection, full ROM, normal capillary refill, pedal edema (Bilateral ), calf tenderness (Right calf). Absent: tenderness, joint swelling Neurological exam: Present: alert, oriented X3, CN II-XII intact Psychiatric exam: Present: normal affect, normal mood Skin exam: Present: warm, dry, intact, normal color. Absent: rash, cyanosis, diaphoretic, erythema, petechiae, pallor, mottled Course Vital Signs 12/23/20 12/23/20 20:24 23:52 Temperature 98.2 F Pulse Rate 70 62 Respiratory 18 16 Rate Blood Pressure 145/77 142/78 O2 Sat by Pulse 96 99 Oximetry EKG Findings - EKG Results: EKG: sinus rhythm (Ventricular rate of 60, RI interval 0.166, QRS of 0.72, QTC of 0.440) Medical Decision Making - Medical Decision Making Ultrasound is negative for DVT of the right leg. Patient's INR 7.1 PTT is 68.8. Patient denies any bleeding episodes, no hematochezia or hematemesis. She is alert and oriented 4. She denies any falls. She has no focal neurological deficits. She states that her doctor has been adjusting her Coumadin dosing and was recently at the office on change back to one day. She states that her granddaughter has been helping her with her medications and doctor's appointments. Case discussed with Dr. Encarnacion. Spoke with Dr. Byrne who recommended giving patient 2.5 mg of vitamin K in discharging her home and have her labs redrawn again on Thursday. Patient is agreeable to being discharged nurse spoke with patient's granddaughter Rosa who will come slat pickler patient. Patient also directed to return to the emergency room with any bleeding episodes or falls especially if she hits her head. - Lab Data Result diagrams: 12/23/20 21:12/23/20 21:20 Lab Results 12/23/20 12/23/20 12/23/20 Range/Units 21: 21: 21:20 WBC 4.5 (3.8-10.6) k/uL RBC 3.69 L (3.80-5.40) m/uL Hgb 12.0 (11.4-16.0) gm/dL Hct 34.6 (34.0-46.0) % MCV 93.8 (80.0-100.0) fL MCH 32.4 (25.0-35.0) pg MCHC 34.5 (31.0-37.0) g/dL RDW 13.2 (11.5-15.5) % Plt Count 168 (150-450) k/uL MPV 8.0 Neutrophils % 58 % Lymphocytes % 28 % Monocytes % 6 % Eosinophils % 6 % Basophils % 1 % Neutrophils # 2.6 (1.3-7.7) k/uL Lymphocytes # 1.3 (1.0-4.8) k/uL Monocytes # 0.3 (0-1.0) k/uL Eosinophils # 0.3 (0-0.7) k/uL Basophils # 0.0 (0-0.2) k/uL PT 68.8 H (9.0-12.0) sec INR 7.1 H* (<1.2) APTT 38.0 H (22.0-30.0) sec Sodium 141 (137-145) mmol/L Potassium 4.8 (3.5-5.1) mmol/L Chloride 110 H (98-107) mmol/L Carbon Dioxide 25 (22-30) mmol/L Anion Gap 6 mmol/L BUN 27 H (7-17) mg/dL Creatinine 1.41 H (0.52-1.04) mg/dL Est GFR (CKD-EPI)AfAm 42 (>60 ml/min/1.73 sqM) Est GFR (CKD-EPI)NonAf 36 (>60 ml/min/1.73 sqM) Glucose 220 H (74-99) mg/dL Calcium 8.8 (8.4-10.2) mg/dL Magnesium 1.9 (1.6-2.3) mg/dL Total Bilirubin 0.1 L (0.2-1.3) mg/dL AST 21 (14-36) U/L ALT 11 (4-34) U/L Alkaline Phosphatase 101 (38-126) U/L Troponin I (0.000-0.034) ng/mL NT-Pro-B Natriuret Pep pg/mL Total Protein 5.9 L (6.3-8.2) g/dL Albumin 3.5 (3.5-5.0) g/dL 12/23/20 12/23/20 Range/Units 21:20 21:20 WBC (3.8-10.6) k/uL RBC (3.80-5.40) m/uL Hgb (11.4-16.0) gm/dL Hct (34.0-46.0) % MCV (80.0-100.0) fL MCH (25.0-35.0) pg MCHC (31.0-37.0) g/dL RDW (11.5-15.5) % Plt Count (150-450) k/uL MPV Neutrophils % % Lymphocytes % % Monocytes % % Eosinophils % % Basophils % % Neutrophils # (1.3-7.7) k/uL Lymphocytes # (1.0-4.8) k/uL Monocytes # (0-1.0) k/uL Eosinophils # (0-0.7) k/uL Basophils # (0-0.2) k/uL PT (9.0-12.0) sec INR (<1.2) APTT (22.0-30.0) sec Sodium (137-145) mmol/L Potassium (3.5-5.1) mmol/L Chloride (98-107) mmol/L Carbon Dioxide (22-30) mmol/L Anion Gap mmol/L BUN (7-17) mg/dL Creatinine (0.52-1.04) mg/dL Est GFR (CKD-EPI)AfAm (>60 ml/min/1.73 sqM) Est GFR (CKD-EPI)NonAf (>60 ml/min/1.73 sqM) Glucose (74-99) mg/dL Calcium (8.4-10.2) mg/dL Magnesium (1.6-2.3) mg/dL Total Bilirubin (0.2-1.3) mg/dL AST (14-36) U/L ALT (4-34) U/L Alkaline Phosphatase (38-126) U/L Troponin I <0.012 (0.000-0.034) ng/mL NT-Pro-B Natriuret Pep 420 pg/mL Total Protein (6.3-8.2) g/dL Albumin (3.5-5.0) g/dL Disposition Clinical Impression: Leg swelling, Elevated INR Disposition: HOME SELF-CARE Condition: Fair Instructions (If sedation given, give patient instructions): Leg Edema (ED), Elevated INR (ED) Additional Instructions: Have your PT and INR levels or free drawn on 12/25/2020. Follow-up with your primary care doctor next week. Return to the emergency room with worsening symptoms or bleeding. Is patient prescribed a controlled substance at d/c from ED?: No Referrals: Zeke Beasley MD [Primary Care Provider] - 1-2 days Time of Disposition: 23:52
[2020-12-23 21:41] LABS: Basophils % (A) 1 %; Eosinophils # (A) 0.3 k/uL (0-0.7); Eosinophils % (A) 6 %; HCT 34.6 % (34.0-46.0); Lymphocytes # (A) 1.3 k/uL (1.0-4.8); Lymphocytes % (A) 28 %; MCH 32.4 pg (25.0-35.0); MCHC 34.5 g/dL (31.0-37.0); MCV 93.8 fL (80.0-100.0); Monocytes # (A) 0.3 k/uL (0-1.0); Monocytes % (A) 6 %; Neutrophils # (A) 2.6 k/uL (1.3-7.7); Neutrophils % (A) 58 %; Platelet Count 168 k/uL (150-450); RBC 3.69 m/uL (3.80-5.40); RDW 13.2 % (11.5-15.5); WBC 4.5 k/uL (3.8-10.6)
[2020-12-23 21:56] LABS: Prothrombin Time 68.8 sec (9.0-12.0)
--- NOTE | 2020-12-23 22:14 | US ---
EXAMINATION TYPE: US venous doppler duplex LE RT DATE OF EXAM: 12/23/2020 9:57 PM COMPARISON: NONE CLINICAL HISTORY: pain. Right leg pain, patient on blood thinners SIDE PERFORMED: Right TECHNIQUE: The lower extremity deep venous system is examined utilizing real time linear array sonog tanner with graded compression, doppler sonography and color-flow sonography. VESSELS IMAGED: Common Femoral Vein Deep Femoral Vein Greater Saphenous Vein * Femoral Vein Popliteal Vein Small Saphenous Vein * Proximal Calf Veins (* superficial vessels) Right Leg: Appears negative for DVT IMPRESSION: No sign of deep vein thrombosis in the right leg.
[2020-12-23 22:32] LABS: INR 7.1 (<1.2)
--- NOTE | 2020-12-23 22:33 | XR ---
EXAMINATION TYPE: XR chest 2V DATE OF EXAM: 12/23/2020 COMPARISON: 09/30/2020 HISTORY: Short of breath TECHNIQUE: FINDINGS: There is no heart failure nor confluent pneumonic infiltrate. Costophrenic angles are clear . There is slight elevated right diaphragm. Thoracic aorta is atheromatous. Bony thorax is intact IMPRESSION: Mild elevation of the right diaphragm. No acute lung disease. No heart failure. No signif icant change.
[2020-12-23 23:04] LABS: Albumin 3.5 g/dL (3.5-5.0); Calcium 8.8 mg/dL (8.4-10.2); Magnesium 1.9 mg/dL (1.6-2.3); Potassium 4.8 mmol/L (3.5-5.1); Total Bilirubin 0.1 mg/dL (0.2-1.3); Total Protein 5.9 g/dL (6.3-8.2)
[2020-12-23] MEDS ORDERED: PHYTONADIONE ORAL 5 MG/5 ML ORAL.SYRG PO STA ×2 (23:20→23:27)
[2020-12-23 23:54] VITALS: BP 142/78; PULSE 62; RESP 16
== END 2020-12-23 23:58 | disposition home or self-care (01) ==
LOC: EC 20:20
DX: M79.89 Other specified soft tissue disorders (principal); R79.1 Abnormal coagulation profile; E11.9 Type 2 diabetes mellitus without complications; I10 Essential (primary) hypertension; E78.5 Hyperlipidemia, unspecified; Z79.899 Other long term (current) drug therapy; Z79.01 Long term (current) use of anticoagulants; Z86.73 Personal history of transient ischemic attack (TIA), and cerebral infarction without residual deficits; Z86.718 Personal history of other venous thrombosis and embolism; Z79.84 Long term (current) use of oral hypoglycemic drugs
CPT/HCPCS: 71046; 80053; 83735; 83880; 84484; 85025; 85610; 85730; 93005; 99284

== ENCOUNTER 2021-01-30 11:11 | Observation (INO) | payer MEDICARE ==
[2021-01-30] MEDS ORDERED: SODIUM CHLORIDE 0.9% 500 ML 500 ML IV ONE (11:38)
--- NOTE | 2021-01-30 11:48 | ED ---
Fall HPI - General Chief Complaint: Fall Stated Complaint: Fall Time Seen by Provider: 01/30/21 11:35 Source: patient, EMS, RN notes reviewed Mode of arrival: EMS - History of Present Illness Initial Comments: 75-year-old white female, alert and oriented 4, presents to the emergency room with complaints of falling in the bathroom at 4 AM. Patient states that she got dizzy and fell. She was unable to get up on her own. She did call the ambulance at 11:00 but was down in the bathroom for several hours. She states that she does live alone She states she does take Coumadin and she is not sure but may have hit her head. There is no obvious injury. She has no active ble eding. She states that she was unable to get up on her own related to low back and left hip pain. She denies any headache, chest pain or shortness of breath. MD Complaint: fall -: hour(s) (7) Fall From: standing When Fall Occurred: other (399) Fall Witnessed: no Place Fall Occurred: home Loss of Consciousness: none Prolonged Down Time?: yes, hour(s) (7) Symptoms Prior to Fall: dizziness Location: buttocks, other (left hip) Severity scale (1-10): 7 Quality: aching - Related Data Home Medications Medication Instructions Recorded Confirmed Pantoprazole [Protonix] 40 mg PO DAILY@119909/28/20 01/30/21 Simvastatin [Zocor] 80 mg PO DAILY@119909/28/20 01/30/21 Warfarin [Coumadin] 5 mg PO DAILY@119909/28/20 01/30/21 amLODIPine [Norvasc] 5 mg PO HS 09/28/20 01/30/21 glipiZIDE [Glucotrol] 10 mg PO BID 09/28/20 01/30/21 Furosemide [Lasix] 20 mg PO DAILY@1200 01/30/21 01/30/21 Potassium Chloride [Potassium 8 meq PO DAILY@119901/30/21 01/30/21 Chloride ER] lisinopriL [Zestril] 10 mg PO BID 01/30/21 01/30/21 Allergies Allergy/AdvReac Type Severity Reaction Status Date / Time No Known Allergies Allergy Verified 01/30/21 12:17 Review of Systems ROS Statement: Those systems with pertinent positive or pertinent negative responses have been documented in the HPI. ROS Other: All systems not noted in ROS Statement are negative. 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, blood clot in left leg, falls History of Any Multi-Drug Resistant Organisms: ESBL Date of last positivie culture/infection: 02/16/19 MDRO Source:: ESBL URINE Past Surgical History: Cholecystectomy, Tubal Ligation Past Anesthesia/Blood Transfusion Reactions: No Reported Reaction Past Psychological History: No Psychological Hx Reported Smoking Status: Never smoker Past Alcohol Use History: None Reported Past Drug Use History: None Reported General Exam Limitations: physical limitation General appearance: alert, in no apparent distress Head exam: Present: atraumatic, normocephalic, normal inspection Eye exam: Present: normal appearance, PERRL, EOMI. Absent: scleral icterus, conjunctival injection, periorbital swelling Pupils: Present: normal accommodation ENT exam: Present: normal exam, normal oropharynx, mucous membranes moist Neck exam: Present: normal inspection, full ROM. Absent: tenderness, meningismus, lymphadenopathy Respiratory exam: Present: normal lung sounds bilaterally. Absent: respiratory distress, wheezes, rales, rhonchi, stridor, chest wall tenderness, accessory muscle use Cardiovascular Exam: Present: regular rate, normal rhythm, normal heart sounds. Absent: systolic murmur, diastolic murmur, rubs, gallop, clicks GI/Abdominal exam: Present: soft, normal bowel sounds. Absent: distended, tenderness, guarding, rebound, rigid Extremities exam: Present: normal inspection, full ROM, normal capillary refill. Absent: tenderness, pedal edema, joint swelling, calf tenderness Left Hip exam: Present: tenderness, pelvic stability (Patient was able to bend both knees and push herself up in the bed). Absent: swelling, abrasion, laceration, ecchymosis, deformity, dislocation, external rotation, internal rotation, shortening Knee exam: Present: normal inspection. Absent: tenderness Lower Leg exam: Present: normal inspection. Absent: tenderness Ankle exam: Present: full ROM. Absent: deformity Foot/Toe exam: Present: full ROM. Absent: tenderness, ecchymosis, deformity Neurovascular tendon exam: Present: no vascular compromise. Absent: abnormal cap refill, motor deficit, sensory deficit, tendon deficit, extremity cold to touch, pallor, foot drop Back exam: Present: normal inspection, tenderness (Lumbar sacral spine). Absent: CVA tenderness (R), CVA tenderness (L), muscle spasm, paraspinal tenderness Neurological exam: Present: alert, oriented X3, CN II-XII intact Psychiatric exam: Present: normal affect, normal mood Skin exam: Present: warm, dry, intact, normal color. Absent: rash Course Vital Signs 01/30/21 01/30/21 11:23 15:58 Temperature 98.3 F 97.8 F Pulse Rate 82 75 Respiratory 18 18 Rate Blood Pressure 121/63 105/80 O2 Sat by Pulse 98 95 Oximetry Medical Decision Making - Medical Decision Making CT the head showed mild to moderate confluent burden of chronic small vessel ischemic disease. There is no intracranial hemorrhage, mass or midline shift. X-ray of the lumbar sacral spine shows no acute fracture dislocation. X-ray of bilateral hips shows no acute fracture or dislocation, SI joints appear symmetric. Patient does have a urinary tract infection was given 1 g of Rocephin. Due to the syncopal episode and fall, patient will be admitted to the hospital to trend her troponins with the first being 0.026. Case discussed with Dr. Mota - Lab Data Result diagrams: 01/30/21 11:44 01/30/21 11:44 Lab Results 01/30/21 01/30/21 01/30/21 Range/Units 11:30 11:44 11:44 WBC 10.0 (3.8-10.6) k/uL RBC 3.65 L (3.80-5.40) m/uL Hgb 11.7 (11.4-16.0) gm/dL Hct 34.8 (34.0-46.0) % MCV 95.4 (80.0-100.0) fL MCH 32.1 (25.0-35.0) pg MCHC 33.7 (31.0-37.0) g/dL RDW 13.8 (11.5-15.5) % Plt Count 145 L (150-450) k/uL MPV 8.2 Neutrophils % 93 % Lymphocytes % 3 % Monocytes % 3 % Eosinophils % 1 % Basophils % 0 % Neutrophils # 9.3 H (1.3-7.7) k/uL Lymphocytes # 0.3 L (1.0-4.8) k/uL Monocytes # 0.3 (0-1.0) k/uL Eosinophils # 0.1 (0-0.7) k/uL Basophils # 0.0 (0-0.2) k/uL PT 23.9 H (9.0-12.0) sec INR 2.5 H (<1.2) APTT 20.8 L (22.0-30.0) sec Sodium (137-145) mmol/L Potassium (3.5-5.1) mmol/L Chloride (98-107) mmol/L Carbon Dioxide (22-30) mmol/L Anion Gap mmol/L BUN (7-17) mg/dL Creatinine (0.52-1.04) mg/dL Est GFR (CKD-EPI)AfAm (>60 ml/min/1.73 sqM) Est GFR (CKD-EPI)NonAf (>60 ml/min/1.73 sqM) Glucose (74-99) mg/dL Plasma Lactic Acid Sudhakar 1.7 (0.7-2.0) mmol/L Calcium (8.4-10.2) mg/dL Total Bilirubin (0.2-1.3) mg/dL AST (14-36) U/L ALT (4-34) U/L Alkaline Phosphatase (38-126) U/L CK-MB (CK-2) (0.0-2.4) ng/mL Troponin I (0.000-0.034) ng/mL Total Protein (6.3-8.2) g/dL Albumin (3.5-5.0) g/dL Urine Color Urine Appearance (Clear) Urine pH (5.0-8.0) Ur Specific Drums (1.001-1.035) Urine Protein (Negative) Urine Glucose (UA) (Negative) Urine Ketones (Negative) Urine Blood (Negative) Urine Nitrite (Negative) Urine Bilirubin (Negative) Urine Urobilinogen (<2.0) mg/dL Ur Leukocyte Esterase (Negative) Urine RBC (0-5) /hpf Urine WBC (0-5) /hpf Ur Squamous Epith Cells (0-4) /hpf Urine Bacteria (None) /hpf Hyaline Casts (0-2) /lpf Urine Mucus (None) /hpf 01/30/21 01/30/21 01/30/21 Range/Units 11:44 11:44 12:56 WBC (3.8-10.6) k/uL RBC (3.80-5.40) m/uL Hgb (11.4-16.0) gm/dL Hct (34.0-46.0) % MCV (80.0-100.0) fL MCH (25.0-35.0) pg MCHC (31.0-37.0) g/dL RDW (11.5-15.5) % Plt Count (150-450) k/uL MPV Neutrophils % % Lymphocytes % % Monocytes % % Eosinophils % % Basophils % % Neutrophils # (1.3-7.7) k/uL Lymphocytes # (1.0-4.8) k/uL Monocytes # (0-1.0) k/uL Eosinophils # (0-0.7) k/uL Basophils # (0-0.2) k/uL PT (9.0-12.0) sec INR (<1.2) APTT (22.0-30.0) sec Sodium 135 L (137-145) mmol/L Potassium 4.2 (3.5-5.1) mmol/L Chloride 104 (98-107) mmol/L Carbon Dioxide 20 L (22-30) mmol/L Anion Gap 11 mmol/L BUN 28 H (7-17) mg/dL Creatinine 1.38 H (0.52-1.04) mg/dL Est GFR (CKD-EPI)AfAm 43 (>60 ml/min/1.73 sqM) Est GFR (CKD-EPI)NonAf 37 (>60 ml/min/1.73 sqM) Glucose 220 H (74-99) mg/dL Plasma Lactic Acid Sudhakar (0.7-2.0) mmol/L Calcium 9.0 (8.4-10.2) mg/dL Total Bilirubin 0.6 (0.2-1.3) mg/dL AST 26 (14-36) U/L ALT 14 (4-34) U/L Alkaline Phosphatase 113 (38-126) U/L CK-MB (CK-2) 1.1 (0.0-2.4) ng/mL Troponin I 0.026 (0.000-0.034) ng/mL Total Protein 6.1 L (6.3-8.2) g/dL Albumin 3.5 (3.5-5.0) g/dL Urine Color Yellow Urine Appearance Cloudy H (Clear) Urine pH 5.0 (5.0-8.0) Ur Specific Drums 1.012 (1.001-1.035) Urine Protein Trace H (Negative) Urine Glucose (UA) Negative (Negative) Urine Ketones Trace H (Negative) Urine Blood Small H (Negative) Urine Nitrite Positive H (Negative) Urine Bilirubin Negative (Negative) Urine Urobilinogen <2.0 (<2.0) mg/dL Ur Leukocyte Esterase Large H (Negative) Urine RBC 4 (0-5) /hpf Urine WBC 33 H (0-5) /hpf Ur Squamous Epith Cells <1 (0-4) /hpf Urine Bacteria Rare H (None) /hpf Hyaline Casts 3 H (0-2) /lpf Urine Mucus Rare H (None) /hpf - EKG Data EKG shows normal: intervals (Ventricular rate 85, RI interval 0.154, QRS 0.80, QTC 0.461) Rate: normal Disposition Clinical Impression: Syncope, Fall, UTI (urinary tract infection) Disposition: ADMITTED IP TO THIS [facility] Condition: Fair Decision Date: 01/30/21 Decision Time: 13:57
[2021-01-30 12:15] LABS: Albumin 3.5 g/dL (3.5-5.0); Potassium 4.2 mmol/L (3.5-5.1); Total Bilirubin 0.6 mg/dL (0.2-1.3); Total Protein 6.1 g/dL (6.3-8.2)
[2021-01-30 12:25] LABS: INR 2.5 (<1.2); Partial Thromboplastin Time 20.8 sec (22.0-30.0); Prothrombin Time 23.9 sec (9.0-12.0)
[2021-01-30 12:37] LABS: Creatine Kinase MB 1.1 ng/mL (0.0-2.4); Troponin I 0.026 ng/mL (0.000-0.034)
[2021-01-30 12:42] LABS: Basophils % (A) 0 %; Eosinophils # (A) 0.1 k/uL (0-0.7); Eosinophils % (A) 1 %; HCT 34.8 % (34.0-46.0); HGB 11.7 gm/dL (11.4-16.0); Lymphocytes # (A) 0.3 k/uL (1.0-4.8); Lymphocytes % (A) 3 %; MCH 32.1 pg (25.0-35.0); MCHC 33.7 g/dL (31.0-37.0); MCV 95.4 fL (80.0-100.0); Mean Platelet Volume 8.2; Monocytes # (A) 0.3 k/uL (0-1.0); Monocytes % (A) 3 %; Neutrophils # (A) 9.3 k/uL (1.3-7.7); Neutrophils % (A) 93 %; Platelet Count 145 k/uL (150-450); RBC 3.65 m/uL (3.80-5.40); RDW 13.8 % (11.5-15.5)
--- NOTE | 2021-01-30 12:52 | CT ---
EXAMINATION TYPE: CT brain mora mishra DATE OF EXAM: 01/30/2021 COMPARISON: None HISTORY: 75-year-old female with pain after Fall CT DLP: 1402.2 mGycm Automated exposure control for dose reduction was used. Technique: Examination of the head was done in axial plane without intravenous contrast. Coronal and sagittal reconstructions performed. CT of the cervical spine was obtained in axial plane without intravenous injection of contrast mater ial. Coronal and sagittal reformatted images were obtained from the axial views for evaluation of f ractures, spinal alignment and canal. FINDINGS: Head: There is no evidence of acute intracranial hemorrhage, acute ischemic changes, mass, mass-effect, or extra-axial fluid collection. There is no effacement of cerebral sulci or basal subarachnoid cister ns. There is no hydrocephalus. There is no midline shift. Pretty-white matter distinction is preserv ed. Bilateral basal ganglionic hypodensities and also one within the left thalamus. Findings suggest mult iple old lacunar infarcts. Mild to moderate confluent white matter hypodensities in both cervical hem ispheres. Slight rightward nasal septal deviation. Trace mucosal thickening ethmoid air cells. Mastoid air cell s are well pneumatized. Cervical spine: No precervical junction abnormality, predental space widening, or prevertebral soft tissue swelling. Degenerative changes of the C1 dens articulation. Hypertrophic facet and uncovertebral joint arthropathy throughout with grade 1 anterolisthesis C3-C4. Otherwise, alignment is maintained. Moderate degenerative disc disease mid cervical spine. Minimal superior endplate deformity C7 and also T2. Refer to sagittal images 49 and 50 as well as sag ittal image 53. Findings suspect to be chronic as no discrete fracture lucency is seen. Changes result in very mild/moderate neural foraminal stenoses throughout. Sagittal and coronal reformatted images confirm above findings. COMBINED IMPRESSION: 1. No acute intracranial abnormality seen. Old lacunar infarcts bilateral basal ganglia and left thal amus. Mild to moderate confluent burden of chronic small vessel ischemic disease. 2. Subtle superior endplate deformities of C7 and T2 on the sagittal images, suspected chronic as no discrete fracture lines are seen. No prevertebral soft tissue swelling. Correlate for any pain at the se levels. If pain persists MRI can be considered. Moderate multilevel spondylotic change with degene rative grade 1 anterolisthesis at C3-C4.
--- NOTE | 2021-01-30 13:03 | XR ---
EXAMINATION TYPE: XR lumbosacral spine min 4V DATE OF EXAM: 01/30/2021 CLINICAL HISTORY: pain COMPARISON: NONE TECHNIQUE: Frontal, lateral, and oblique images of the lumbar spine are obtained. FINDINGS: Chronic compression fracture of L2 seen on prior CT of the chest abdomen and pelvis dated . No acute fractures are seen. Moderate to severe multilevel degenerative disc disease and sp ondylosis noted. Facet joint arthropathy seen. IMPRESSION: No acute fracture or dislocation is seen in the lumbar spine. ICD 10 NO FRACTURE, INITIAL EVALUATION
--- NOTE | 2021-01-30 13:04 | XR ---
EXAMINATION TYPE: XR Hip Bilateral and AP pelvis DATE OF EXAM: 01/30/2021 CLINICAL HISTORY: pain TECHNIQUE: Single view the pelvis is submitted. Bilateral hips are also submitted. FINDINGS: No evidence for fracture, dislocation or bony lesion. Joint spaces are well-preserved. S I joints appear symmetric. IMPRESSION: 1. No acute fracture or dislocation seen. ICD 10 NO FRACTURE, INITIAL EVALUATION
[2021-01-30 13:30] LABS: Appearance,Urine Cloudy (Clear); Bacteria,Urine Rare /hpf; Bilirubin,Urine Negative (Negative); Blood,Urine Small (Negative); Color,Urine Yellow; Glucose,Urine (UA) Negative (Negative); Hyaline Casts,Urine 3 /lpf (0-2); Ketones,Urine Trace (Negative); Leukocyte Esterase,Urine Large (Negative); Mucus,Urine Rare /hpf; Nitrite,Urine Positive (Negative); Protein,Urine Trace (Negative); RBC,Urine 4 /hpf (0-5); Specific Gravity,Urine 1.012 (1.001-1.035); Squamous Epithelial Cell,Urine <1 /hpf (0-4); Urobilinogen,Urine <2.0 mg/dL (<2.0); WBC,Urine 33 /hpf (0-5)
[2021-01-30] MEDS ORDERED: cefTRIAXone IN SWFI 1,000 MG/10 ML SYRINGE IVP STA (13:53)
[2021-01-30] MEDS ORDERED: NALOXONE 0.4 MG/ML 1 ML VIAL IV PRN ×2 (14:22→14:25)
[2021-01-30] MEDS: SODIUM CHLORIDE 0.9% 1,000 ML IV SCH (14:32)
[2021-01-30] MEDS: ACETAMINOPHEN TAB 325 MG TAB PO PRN (18:01)
[2021-01-30] MEDS: lisinopriL 10 MG TAB PO SCH (20:22)
--- NOTE | 2021-01-30 20:25 | XR ---
EXAMINATION TYPE: XR KUB DATE OF EXAM: 01/30/2021 8:16 PM CLINICAL HISTORY: Constipation, vomiting, abdominal pain TECHNIQUE: Supine images of the abdomen and pelvis were obtained COMPARISON: None. FINDINGS: Nonspecific bowel gas pattern. Paucity of small bowel gas. Normal distention of the stomach bubble. Right upper quadrant surgical clips. Linear radiopaque density over the left midabdomen of u ncertain etiology. Pelvic surgical clips. Phleboliths. No organomegaly. Degenerative changes of the l umbosacral spine. IMPRESSION: Nonspecific bowel gas pattern. There is no abnormally increased colonic fecal debris.
[2021-01-30 20:50] LABS: Glucose,Whole Blood 345 mg/dL (75-99)
--- NOTE | 2021-01-30 20:51 | P.HPIM ---
History of Present Illness This is a pleasant 75 years old female with past medical history of CVA/TIA, atrial fibrillation on Coumadin, diabetes mellitus, deep venous thrombosis, hypertension, hyperlipidemia, syncope. Presents because of fall Patient says that she was going to the bathroom when she felt dizzy and fell, she is not sure if she hit her head but she felt as an as before falling. Also patient vomited 3 times before falling, no abdominal pain, she has no bowel movement for the last 3 days which is unusual for her She thinks her urine stinks but denies dysuria. Also no chest pain and chronic mild dyspnea. Smoking, alcohol or illicit drugs Vitals are stable. Her BMP and liver enzymes are unremarkable. INR is 2.5 while she is on Coumadin. Creatinine slightly elevated at 1.3, baseline Pravin 1.4-1.8 Review of Systems CONSTITUTIONAL: No fever, no malaise, no fatigue. HEENT: No recent visual problems or hearing problems. Denied any sore throat. CARDIOVASCULAR: No orthopnea, PND, no palpitations, no syncope. PULMONARY: No shortness of breath, no cough, no hemoptysis. GASTROINTESTINAL: No diarrhea, no nausea, no vomiting, no abdominal pain. Normoactive bowel sounds. NEUROLOGICAL: No headaches, no weakness, no numbness. HEMATOLOGICAL: Denies any bleeding or petechiae. GENITOURINARY: Denies any burning micturition, frequency, or urgency. MUSCULOSKELETAL/RHEUMATOLOGICAL: Denies any joint pain, swelling, or any muscle pain. ENDOCRINE: Denies any polyuria or polydipsia. 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, blood clot in left leg, falls History of Any Multi-Drug Resistant Organisms: ESBL Date of last positivie culture/infection: 02/16/19 MDRO Source:: ESBL URINE Past Surgical History: Cholecystectomy, Tubal Ligation Past Anesthesia/Blood Transfusion Reactions: No Reported Reaction Past Psychological History: No Psychological Hx Reported Smoking Status: Never smoker Past Alcohol Use History: None Reported Past Drug Use History: None Reported Medications and Allergies Home Medications Medication Instructions Recorded Confirmed Type Pantoprazole [Protonix] 40 mg PO DAILY@1200 09/28/20 01/30/21 History Simvastatin [Zocor] 80 mg PO DAILY@1200 09/28/20 01/30/21 History Warfarin [Coumadin] 5 mg PO DAILY@119909/28/20 01/30/21 History amLODIPine [Norvasc] 5 mg PO HS 09/28/20 01/30/21 History glipiZIDE [Glucotrol] 10 mg PO BID 09/28/20 01/30/21 History Furosemide [Lasix] 20 mg PO DAILY@119901/30/21 01/30/21 History Potassium Chloride [Potassium 8 meq PO DAILY@119901/30/21 01/30/21 History Chloride ER] lisinopriL [Zestril] 10 mg PO BID 01/30/21 01/30/21 History Allergies Allergy/AdvReac Type Severity Reaction Status Date / Time No Known Allergies Allergy Verified 01/30/21 12:17 Physical Exam Vitals: Vital Signs Temp Pulse Resp BP Pulse Ox 01/30/21 11:23 98.3 F 82 18 121/63 98 Intake and Output 01/30/21 01/30/21 01/30/21 06:59 14:59 22:59 Output Total 100 Balance -100 Output: Urine 100 Straight 100 Other: Weight 90.718 kg GENERAL: The patient is alert and oriented x3, not in any acute distress. Well developed, well nourished. HEENT: Pupils are round and equally reacting to light. EOMI. No scleral icterus. No conjunctival pallor. Normocephalic, atraumatic. No pharyngeal erythema. No thyromegaly. CARDIOVASCULAR: S1 and S2 present. No murmurs, rubs, or gallops. PULMONARY: Chest is clear to auscultation, no wheezing or crackles. ABDOMEN: Soft, nontender, nondistended, normoactive bowel sounds. No palpable organomegaly. MUSCULOSKELETAL: No joint swelling or deformity. EXTREMITIES: No cyanosis, clubbing, or pedal edema. NEUROLOGICAL: Gross neurological examination did not reveal any focal deficits. SKIN: No rashes. No petechiae Results CBC & Chem 7: 01/30/21 11:44 01/30/21 11:44 Labs: Abnormal Lab Results - Last 24 Hours (Table) 01/30/21 01/30/21 01/30/21 Range/Units 11:44 11:44 11:44 RBC 3.65 L (3.80-5.40) m/uL Plt Count 145 L (150-450) k/uL Neutrophils # 9.3 H (1.3-7.7) k/uL Lymphocytes # 0.3 L (1.0-4.8) k/uL PT 23.9 H (9.0-12.0) sec INR 2.5 H (<1.2) APTT 20.8 L (22.0-30.0) sec Sodium 135 L (137-145) mmol/L Carbon Dioxide 20 L (22-30) mmol/L BUN 28 H (7-17) mg/dL Creatinine 1.38 H (0.52-1.04) mg/dL Glucose 220 H (74-99) mg/dL Total Protein 6.1 L (6.3-8.2) g/dL Urine Appearance (Clear) Urine Protein (Negative) Urine Ketones (Negative) Urine Blood (Negative) Urine Nitrite (Negative) Ur Leukocyte Esterase (Negative) Urine WBC (0-5) /hpf Urine Bacteria (None) /hpf Hyaline Casts (0-2) /lpf Urine Mucus (None) /hpf 01/30/21 Range/Units 12:56 RBC (3.80-5.40) m/uL Plt Count (150-450) k/uL Neutrophils # (1.3-7.7) k/uL Lymphocytes # (1.0-4.8) k/uL PT (9.0-12.0) sec INR (<1.2) APTT (22.0-30.0) sec Sodium (137-145) mmol/L Carbon Dioxide (22-30) mmol/L BUN (7-17) mg/dL Creatinine (0.52-1.04) mg/dL Glucose (74-99) mg/dL Total Protein (6.3-8.2) g/dL Urine Appearance Cloudy H (Clear) Urine Protein Trace H (Negative) Urine Ketones Trace H (Negative) Urine Blood Small H (Negative) Urine Nitrite Positive H (Negative) Ur Leukocyte Esterase Large H (Negative) Urine WBC 33 H (0-5) /hpf Urine Bacteria Rare H (None) /hpf Hyaline Casts 3 H (0-2) /lpf Urine Mucus Rare H (None) /hpf Assessment and Plan Assessment: Dizziness and fall at the bathroom Acute urinary tract infection Hypertension Hyperlipidemia Chronic kidney disease, stage III Atrial fibrillation on Coumadin History of CVA/TIA History of deep venous thrombosis Plan: This is a pleasant 75 years old female who presents with fall and dizziness. Also has evidence of UTI Continue with ceftriaxone follow-up urine culture. Gentle hydration Building Mover consult Labs and medication were reviewed.. Continue same treatment. Continue with symptomatic treatment. Resume home medication. Monitor lytes and vitals. DVT and GI prophylaxis. Further recommendations depends on the clinical course of the patient DVT prophylaxis: On Coumadin GI Prophylaxis: Pepcid PT/OT: Pending Prognosis is guarded
[2021-01-30] MEDS: amLODIPine 5 MG TAB PO SCH (21:00)
[2021-01-30] MEDS ORDERED: WARFARIN 5 MG TAB PO ONE (21:00)
[2021-01-30] MEDS: INSULIN ASPART (NovoLOG) 100 UNIT/ML VIAL SQ SCH (21:00)
[2021-01-31] MEDS: SODIUM CHLORIDE 0.9% 1,000 ML IV SCH ×2 (04:13→17:54)
[2021-01-31 05:49] LABS: Basophils % (A) 0 %; Eosinophils # (A) 0.1 k/uL (0-0.7); Eosinophils % (A) 2 %; HCT 34.1 % (34.0-46.0); HGB 11.3 gm/dL (11.4-16.0); Lymphocytes # (A) 0.5 k/uL (1.0-4.8); Lymphocytes % (A) 10 %; MCH 32.7 pg (25.0-35.0); MCHC 33.1 g/dL (31.0-37.0); MCV 98.6 fL (80.0-100.0); Mean Platelet Volume 8.6; Monocytes # (A) 0.2 k/uL (0-1.0); Monocytes % (A) 4 %; Neutrophils # (A) 4.2 k/uL (1.3-7.7); Neutrophils % (A) 83 %; Platelet Count 128 k/uL (150-450); RBC 3.46 m/uL (3.80-5.40); RDW 13.6 % (11.5-15.5); WBC 5.1 k/uL (3.8-10.6)
[2021-01-31 06:18] LABS: INR 3.6 (<1.2); Prothrombin Time 34.9 sec (9.0-12.0)
[2021-01-31 08:04] LABS: Glucose,Whole Blood 85 mg/dL (75-99)
[2021-01-31] MEDS: INSULIN ASPART (NovoLOG) 100 UNIT/ML VIAL SQ SCH ×4 (08:11→21:15)
[2021-01-31] MEDS: lisinopriL 10 MG TAB PO SCH ×2 (08:12→21:15)
[2021-01-31] MEDS: ACETAMINOPHEN TAB 325 MG TAB PO PRN (08:12)
[2021-01-31 09:44] LABS: African American GFR (CKD) 46.1 (60.0-200.0); Anion Gap 10.8 mmol/L (4.00-12.00); BUN/Creat Ratio 23.08 Ratio (12.00-20.00); Calcium 8.3 mg/dL (8.7-10.3); Carbon Dioxide 24.2 mmol/L (21.6-31.8); Magnesium 1.5 mg/dL (1.5-2.4); Non-African American GFR(CKD) 39.8 (60.0-200.0); Potassium 4.3 mmol/L (3.5-5.5)
--- NOTE | 2021-01-31 10:39 | P.CRDCN ---
History of Present Illness History of present illness: HISTORY OF PRESENTING ILLNESS This is a pleasant 75-year-old female past medical history significant for questionable atrial fibrillation, history of lower extremity DVT, CVA, dysl ipidemia, hypertension, diabetes mellitus and obesity. She denies prior history of coronary artery disease and does not follow in the office with a rpg programmer. She states her PCP told her she had afib. There is no documentation to support this here in the hospital. We have been asked to see in consultation for syncope. She states she was up and using the bathroom in the middle of the night when she felt acutely lightneaded and then fell to the ground. She is unsure is she had passed out for sure. She denies feeling chest pain, shortness of breath, palpitations, nausea, vomiting or diaphoresis surrounding this event. On arrival an EKG was obtained revealing SR with no acute ST or T-wave abnormalities. Telemetry tracings negative for an arrhythmia. However, there are some PAC's noted with sinus arrhythmia. Laboratory data reviewed, WBC 5.1, hemoglobin 11.3, platelets 128, INR 3.6, sodium 143, potassium 4.3, creatinine 1.3, magnesium 1.5, cardiac enzymes negative 1. Chronic daily cardiac medications include warfarin, Lasix 20 mg daily, simvastatin 80 mg daily, amlodipine 5 mg daily and lisinopril 10 mg twice a day. REVIEW OF SYSTEMS At the time of my exam: CONSTITUTIONAL: Denies fever or chills. CARDIOVASCULAR: Denies chest pain, shortness of breath, orthopnea, PND or palpitations. RESPIRATORY: Denies cough. GASTROINTESTINAL: Denies abdominal pain, diarrhea, constipation, nausea or vomiting. MUSCULOSKELETAL: Denies myalgias. NEUROLOGIC: Denies numbness, tingling, headache or weakness. ENDOCRINE: Denies fatigue, weight change, polydipsia or polyurina. GENITOURINARY: Denies burning, hematuria or urgency with micturation. HEMATOLOGIC: Denies history of anemia or bleeding. PHYSICAL EXAMINATION Blood pressure 116/73 heart rate 72 afebrile and maintaining oxygen saturation on room air. CONSTITUTIONAL: No apparent distress. HEENT: Head is normocephalic. Pupils are equal, round. Sclerae anicteric. Mucous membranes of the mouth are moist. No JVD. No carotid bruit. CHEST EXAMINATION: Lungs are clear to auscultation. No chest wall tenderness is noted on palpation or with deep breathing. HEART EXAMINATION: Regular rate and rhythm. S1, S2 heard. No murmurs, gallops or rub. ABDOMEN: Soft, nontender. EXTREMITIES: 2+ peripheral pulses, no lower extremity edema and no calf tenderness. NEUROLOGIC EXAMINATION: Patient is awake, alert and oriented x3. ASSESSMENT Fall with questionable syncope Urinary tract infection Supratherapeutic INR Questionable paroxysmal atrial fibrillation History of DVT Hypertension Dyslipidemia Diabetes mellitus CVA Obesity, BMI 31 Poor functional capacity PLAN Ongoing telemetry monitoring for significant underlying arrhythmia. Obtain 2-D echocardiogram and Doppler study to assess cardiac structure and function. Recommend discontinuation of warfarin and switched Eliquis 5 mg twice a day. 2-week event monitor upon discharge. Thank you kindly for this consultation. Nurse Practitioner note has been reviewed, I agree with a documented findings and plan of care. Patient was seen and examined. 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, blood clot in left leg, falls History of Any Multi-Drug Resistant Organisms: ESBL Date of last positivie culture/infection: 02/16/19 MDRO Source:: ESBL URINE Past Surgical History: Cholecystectomy, Tubal Ligation Past Anesthesia/Blood Transfusion Reactions: No Reported Reaction Past Psychological History: No Psychological Hx Reported Smoking Status: Never smoker Past Alcohol Use History: None Reported Past Drug Use History: None Reported Medications and Allergies Home Medications Medication Instructions Recorded Confirmed Type Pantoprazole [Protonix] 40 mg PO DAILY@119909/28/20 01/30/21 History Simvastatin [Zocor] 80 mg PO DAILY@119909/28/20 01/30/21 History Warfarin [Coumadin] 5 mg PO DAILY@119909/28/20 01/30/21 History amLODIPine [Norvasc] 5 mg PO HS 09/28/20 01/30/21 History glipiZIDE [Glucotrol] 10 mg PO BID 09/28/20 01/30/21 History Furosemide [Lasix] 20 mg PO DAILY@119901/30/21 01/30/21 History Potassium Chloride [Potassium 8 meq PO DAILY@119901/30/21 01/30/21 History Chloride ER] lisinopriL [Zestril] 10 mg PO BID 01/30/21 01/30/21 History Allergies Allergy/AdvReac Type Severity Reaction Status Date / Time No Known Allergies Allergy Verified 01/30/21 12:17 Physical Exam Vitals: Vital Signs Temp Pulse Pulse Resp BP BP Pulse Ox 01/31/21 08:00 72 18 01/31/21 04:15 98.4 F 72 18 116/73 95 01/30/21 19:08 98.8 F 70 18 123/76 96 01/30/21 19:00 70 18 01/30/21 17:54 98 F 75 18 131/69 96 01/30/21 15:58 97.8 F 75 18 105/80 95 01/30/21 11:23 98.3 F 82 18 121/63 98 Intake and Output 01/30/21 01/31/21 01/31/21 22:59 06:59 14:59 Intake Total 1100 Balance 1100 Intake: Intake, IV Titration 900 Amount Sodium Chloride 0.9% 1, 900 000 ml @ 75 mls/hr IV . [id number] [facility] Rx#:[id number] Oral 200 Other: Voiding Method Diaper Diaper Incontinent Incontinent # Voids 1 1 Weight 90.718 kg Results 01/31/21 05:18 01/31/21 05:18 Cardiac Enzymes 01/30/21 01/30/21 Range/Units 11:44 11:44 AST 26 (14-36) U/L CK-MB (CK-2) 1.1 (0.0-2.4) ng/mL Troponin I 0.026 (0.000-0.034) ng/mL Coagulation 01/30/21 01/31/21 01/31/21 Range/Units 11:44 05:18 05:18 PT 23.9 H 34.9 H (9.0-12.0) sec APTT 20.8 L 36.5 H (22.0-30.0) sec CBC 01/30/21 01/31/21 Range/Units 11:44 05:18 WBC 10.0 5.1 (3.8-10.6) k/uL RBC 3.65 L 3.46 L (3.80-5.40) m/uL Hgb 11.7 11.3 L (11.4-16.0) gm/dL Hct 34.8 34.1 (34.0-46.0) % Plt Count 145 L 128 L (150-450) k/uL Comprehensive Metabolic Panel 01/30/21 01/31/21 Range/Units 11:44 05:18 Sodium 135 L 143 (137-145) mmol/L Potassium 4.2 4.3 (3.5-5.1) mmol/L Chloride 104 108 (98-107) mmol/L Carbon Dioxide 20 L 24.2 (22-30) mmol/L BUN 28 H 30.0 H (7-17) mg/dL Creatinine 1.38 H 1.3 (0.52-1.04) mg/dL Glucose 220 H 74 (74-99) mg/dL Calcium 9.0 8.3 L (8.4-10.2) mg/dL AST 26 (14-36) U/L ALT 14 (4-34) U/L Alkaline Phosphatase 113 (38-126) U/L Total Protein 6.1 L (6.3-8.2) g/dL Albumin 3.5 (3.5-5.0) g/dL Current Medications Generic Name Dose Route Start Last Admin Trade Name Freq PRN Reason Stop Dose Admin Acetaminophen 650 mg 01/30/21 14:22 01/31/21 08:12 Acetaminophen Tab 325 Mg Tab PO 650 mg Q6HR PRN Administration Mild Pain or Fever > 100.5 Amlodipine Besylate 5 mg 01/30/21 21:00 01/30/21 21:00 Amlodipine 5 Mg Tab PO 5 mg HS [facility] Administration Atorvastatin Calcium 40 mg 01/31/21 12:00 Atorvastatin 40 Mg Tab PO DAILY@1200 [facility] Sodium Chloride 1,000 mls @ 75 mls/hr 01/30/21 14:30 01/31/21 04:13 Saline 0.9% IV 75 mls/hr .[id number] [facility] Administration Ceftriaxone Sodium 1 gm/ 50 mls @ 100 mls/hr 01/31/21 09:00 01/31/21 08:12 Sodium Chloride IVPB 100 mls/hr Q24HR [facility] Administration Insulin Aspart 0 unit 01/30/21 21:00 01/31/21 08:11 Insulin Aspart (Novolog) 100 Unit/Ml Vial SQ Not Given ACHS [facility] Protocol Lisinopril 10 mg 01/30/21 21:00 01/31/21 08:12 Lisinopril 10 Mg Tab PO 10 mg BID [facility] Administration Miscellaneous Information 1 each 01/30/21 20:39 Warfarin Per Pharmacy MISCELLANE DIRECTED PRN Per Protocol Naloxone HCl 0.2 mg 01/30/21 14:25 Naloxone 0.4 Mg/Ml 1 Ml Vial IV Q2M PRN Opioid Reversal Pantoprazole Sodium 40 mg 01/31/21 12:00 Pantoprazole 40 Mg Tablet PO DAILY@1200 [facility] Intake and Output 01/30/21 01/31/21 01/31/21 22:59 06:59 14:59 Intake Total 1100 Balance 1100 Intake: Intake, IV Titration 900 Amount Sodium Chloride 0.9% 1, 900 000 ml @ 75 mls/hr IV . [id number] [facility] Rx#:[id number] Oral 200 Other: Voiding Method Diaper Diaper Incontinent Incontinent # Voids 1 1 Weight 90.718 kg 01/31/21 05:18 01/31/21 05:18
--- NOTE | 2021-01-31 12:37 | P.PN ---
Subjective This is a pleasant 75 years old female with past medical history of CVA/TIA, atrial fibrillation on Coumadin, diabetes mellitus, deep venous thrombosis, hypertension, hyperlipidemia, syncope. Presents because of fall Patient says that she was going to the bathroom when she felt dizzy and fell, she is not sure if she hit her head but she felt as an as before falling. Also patient vomited 3 times before falling, no abdominal pain, she has no bowel movement for the last 3 days which is unusual for her She thinks her urine stinks but denies dysuria. Also no chest pain and chronic mild dyspnea. Smoking, alcohol or illicit drugs Vitals are stable. Her BMP and liver enzymes are unremarkable. INR is 2.5 while she is on Coumadin. Creatinine slightly elevated at 1.3, baseline Pravin 1.4-1.8 01/31/2021 Patient feels better today with no dizziness or shortness of breath or chest pain. No overt urinary tract symptoms but she had dysuria on the presentation. She is complaining from pain in her right hip area however x-ray is negative She is hemodynamically stable Labs reviewed her INR and went up to 3.6. Anticoagulation is switched Eliquis by package designer team. We will figure out the co-pay Metal Bonding Crib Attendant recommended echocardiogram, telemetry and event monitor upon discharge Resume consistent carbohydrate diet and monitor glucose continue with ceftriaxone follow-up urine culture. Patient Is also on normal saline at 75 mL/h Physical therapy recommended rehab Objective - Vital Signs Vital signs: Vital Signs Temp 98.4 F 01/31/21 04:15 Pulse 72 01/31/21 08:00 Resp 18 01/31/21 08:00 BP 116/73 01/31/21 04:15 Pulse Ox 95 01/31/21 04:15 Intake & Output 01/30/21 01/31/21 01/31/21 18:59 06:59 18:59 Intake Total 1100 Output Total 100 Balance -100 1100 Weight 90.718 kg Intake: Intake, IV Titration 900 Amount Sodium Chloride 0.9% 1, 900 000 ml @ 75 mls/hr IV . [id number] [facility] Rx#:[id number] Oral 200 Output: Urine 100 Straight 100 Other: Voiding Method Diaper Diaper Incontinent Incontinent # Voids 1 1 - Exam GENERAL: The patient is alert and oriented x3, not in any acute distress. Well developed, well nourished. HEENT: Pupils are round and equally reacting to light. EOMI. No scleral icterus. No conjunctival pallor. Normocephalic, atraumatic. No pharyngeal erythema. No thyromegaly. CARDIOVASCULAR: S1 and S2 present. No murmurs, rubs, or gallops. PULMONARY: Chest is clear to auscultation, no wheezing or crackles. ABDOMEN: Soft, nontender, nondistended, normoactive bowel sounds. No palpable organomegaly. MUSCULOSKELETAL: No joint swelling or deformity. EXTREMITIES: No cyanosis, clubbing, or pedal edema. NEUROLOGICAL: Gross neurological examination did not reveal any focal deficits. SKIN: No rashes. No petechiae - Labs CBC & Chem 7: 01/31/21 05:18 01/31/21 05:18 Labs: Abnormal Lab Results - Last 24 Hours (Table) 01/30/21 01/30/21 01/30/21 Range/Units 11:44 12:56 20:46 RBC 3.65 L (3.80-5.40) m/uL Hgb (11.4-16.0) gm/dL Plt Count 145 L (150-450) k/uL Neutrophils # 9.3 H (1.3-7.7) k/uL Lymphocytes # 0.3 L (1.0-4.8) k/uL PT (9.0-12.0) sec INR (<1.2) APTT (22.0-30.0) sec BUN (9.0-27.0) mg/dL Est GFR (CKD-EPI)AfAm (60.0-200.0) Est GFR (CKD-EPI)NonAf (60.0-200.0) BUN/Creatinine Ratio (12.00-20.00) Ratio POC Glucose (mg/dL) 345 H (75-99) mg/dL Calcium (8.7-10.3) mg/dL Urine Appearance Cloudy H (Clear) Urine Protein Trace H (Negative) Urine Ketones Trace H (Negative) Urine Blood Small H (Negative) Urine Nitrite Positive H (Negative) Ur Leukocyte Esterase Large H (Negative) Urine WBC 33 H (0-5) /hpf Urine Bacteria Rare H (None) /hpf Hyaline Casts 3 H (0-2) /lpf Urine Mucus Rare H (None) /hpf 01/31/21 01/31/21 01/31/21 Range/Units 05:18 05:18 05:18 RBC 3.46 L (3.80-5.40) m/uL Hgb 11.3 L (11.4-16.0) gm/dL Plt Count 128 L (150-450) k/uL Neutrophils # (1.3-7.7) k/uL Lymphocytes # 0.5 L (1.0-4.8) k/uL PT (9.0-12.0) sec INR (<1.2) APTT 36.5 H (22.0-30.0) sec BUN 30.0 H (9.0-27.0) mg/dL Est GFR (CKD-EPI)AfAm 46.1 L (60.0-200.0) Est GFR (CKD-EPI)NonAf 39.8 L (60.0-200.0) BUN/Creatinine Ratio 23.08 H (12.00-20.00) Ratio POC Glucose (mg/dL) (75-99) mg/dL Calcium 8.3 L (8.7-10.3) mg/dL Urine Appearance (Clear) Urine Protein (Negative) Urine Ketones (Negative) Urine Blood (Negative) Urine Nitrite (Negative) Ur Leukocyte Esterase (Negative) Urine WBC (0-5) /hpf Urine Bacteria (None) /hpf Hyaline Casts (0-2) /lpf Urine Mucus (None) /hpf 01/31/21 Range/Units 05:18 RBC (3.80-5.40) m/uL Hgb (11.4-16.0) gm/dL Plt Count (150-450) k/uL Neutrophils # (1.3-7.7) k/uL Lymphocytes # (1.0-4.8) k/uL PT 34.9 H (9.0-12.0) sec INR 3.6 H (<1.2) APTT (22.0-30.0) sec BUN (9.0-27.0) mg/dL Est GFR (CKD-EPI)AfAm (60.0-200.0) Est GFR (CKD-EPI)NonAf (60.0-200.0) BUN/Creatinine Ratio (12.00-20.00) Ratio POC Glucose (mg/dL) (75-99) mg/dL Calcium (8.7-10.3) mg/dL Urine Appearance (Clear) Urine Protein (Negative) Urine Ketones (Negative) Urine Blood (Negative) Urine Nitrite (Negative) Ur Leukocyte Esterase (Negative) Urine WBC (0-5) /hpf Urine Bacteria (None) /hpf Hyaline Casts (0-2) /lpf Urine Mucus (None) /hpf Microbiology - Last 24 Hours (Table) 01/30/21 12:56 Urine Culture - Preliminary Urine,Voided Assessment and Plan Assessment: Dizziness and fall at the bathroom, no syncope as per patient Acute urinary tract infection Failure of Coumadin therapy with supratherapeutic INR Hypertension Hyperlipidemia Chronic kidney disease, stage III Atrial fibrillation on Coumadin History of CVA/TIA History of deep venous thrombosis Plan: This is a pleasant 75 years old female who presents with fall and dizziness. Also has evidence of UTI Continue with ceftriaxone follow-up urine culture. Gentle hydration Metal Bonding Crib Attendant consult, recommended echocardiogram, telemetry and event monitor Labs and medication were reviewed.. Continue same treatment. Continue with symptomatic treatment. Resume home medication. Monitor lytes and vitals. DVT and GI prophylaxis. Further recommendations depends on the clinical course of the patient DVT prophylaxis: Hold Coumadin, and switch to Eliquis when INR is down GI Prophylaxis: Pepcid PT/OT: Pending Prognosis is guarded
[2021-01-31 12:48] LABS: Glucose,Whole Blood 101 mg/dL (75-99)
[2021-01-31] MEDS: ATORVASTATIN 40 MG TAB PO SCH (12:58)
[2021-01-31] MEDS: PANTOPRAZOLE 40 MG TABLET PO SCH (12:58)
[2021-01-31 17:56] LABS: Glucose,Whole Blood 194 mg/dL (75-99)
[2021-01-31] MEDS ORDERED: WARFARIN 5 MG TAB PO SCH (18:00)
[2021-01-31] MEDS ORDERED: WARFARIN 0.5 MG TAB PO ONE (18:00)
[2021-01-31 21:06] LABS: Glucose,Whole Blood 203 mg/dL (75-99)
[2021-01-31] MEDS: amLODIPine 5 MG TAB PO SCH (21:15)
[2021-02-01] MEDS: SODIUM CHLORIDE 0.9% 1,000 ML IV SCH (04:51)
[2021-02-01] MEDS: ACETAMINOPHEN TAB 325 MG TAB PO PRN (04:52)
[2021-02-01 05:15] LABS: Basophils % (A) 1 %; Eosinophils # (A) 0.2 k/uL (0-0.7); Eosinophils % (A) 4 %; HCT 32.5 % (34.0-46.0); HGB 10.6 gm/dL (11.4-16.0); Lymphocytes % (A) 23 %; MCHC 32.7 g/dL (31.0-37.0); MCV 97.7 fL (80.0-100.0); Mean Platelet Volume 8.7; Monocytes # (A) 0.2 k/uL (0-1.0); Monocytes % (A) 5 %; Neutrophils # (A) 2.8 k/uL (1.3-7.7); Neutrophils % (A) 66 %; Platelet Count 140 k/uL (150-450); RBC 3.32 m/uL (3.80-5.40); RDW 13.7 % (11.5-15.5); WBC 4.3 k/uL (3.8-10.6)
[2021-02-01 05:40] LABS: INR 2.3 (<1.2); Prothrombin Time 22.2 sec (9.0-12.0)
[2021-02-01 07:30] LABS: Glucose,Whole Blood 190 mg/dL (75-99)
--- NOTE | 2021-02-01 07:51 | ECHOF ---
Referral Reason: MEASUREMENTS -------- HEIGHT: 170.2 cm WEIGHT: 90.7 kg BP: 116/73 RVIDd: 3.7 cm (< 3.3) IVSd: 1.9 cm (0.6 - 1.1) LVIDd: 3.3 cm (3.9 - 5.3) LVPWd: 1.8 cm (0.6 - 1.1) IVSs: 2.4 cm LVIDs: 2.0 cm LVPWs: 2.2 cm LAESV Index (A-L): 22.56 ml/m Ao Diam: 2.9 cm (2.0 - 3.7) AV Cusp: 2.1 cm (1.5 - 2.6) LA Diam: 4.1 cm (2.7 - 3.8) MV EXCURSION: 16.721 mm (> 18.000) MV EF SLOPE: 47 mm/s (70 - 150) EPSS: 0.1 cm MV E Neville: 0.91 m/s MV DecT: 313 ms MV A Neville: 1.22 m/s MV E/A Ratio: 0.75 RAP: 5.00 mmHg RVSP: 21.77 mmHg FINDINGS -------- Sinus rhythm. This was a technically adequate study. The left ventricular size is normal. There is severe concentric left ventricular hypertrophy. Ove rall left ventricular systolic function is normal with, an EF between 55 - 60 %. The diastolic fill ing pattern is normal for the age of the patient 17.07. The right ventricle is mildly enlarged. Normal LA size by volume 22+/-6 ml/m2. The right atrial size is normal. Interatrial and interventricular septum intact. The aortic valve is trileaflet and appears structurally normal. There is mild aortic valve sclerosi s. There is no evidence of aortic regurgitation. There is no evidence of aortic stenosis. No mitral regurgitation. Mild tricuspid regurgitation present. There is no evidence of pulmonary hypertension. The right v entricular systolic pressure, as measured by Doppler, is 21.77mmHg. There is no pulmonic regurgitation present. The aortic root size is normal. IVC Not well visulized. There is no pericardial effusion. CONCLUSIONS -------- 1. The left ventricular size is normal. 2. There is severe concentric left ventricular hypertrophy. 3. Overall left ventricular systolic function is normal with, an EF between 55 - 60 %. 4. The diastolic filling pattern is normal for the age of the patient 17.07 5. The right ventricle is mildly enlarged. 6. There is mild aortic valve sclerosis. 7. Mild tricuspid regurgitation present. MACHINING AND ASSEMBLY SUPERVISOR: Soniya Martínez RDCS
[2021-02-01] MEDS: INSULIN ASPART (NovoLOG) 100 UNIT/ML VIAL SQ SCH ×2 (08:29→13:25)
[2021-02-01] MEDS: lisinopriL 10 MG TAB PO SCH (08:30)
[2021-02-01] MEDS ORDERED: APIXABAN 5 MG TAB PO SCH (09:00)
--- NOTE | 2021-02-01 09:05 | P.PN ---
Subjective HISTORY OF PRESENTING ILLNESS This is a pleasant 75-year-old female past medical history significant for questionable atrial fibrillation, history of lower extremity DVT, CVA, dyslipidemia, hypertension, diabetes mellitus and obesity. She denies prior history of coronary artery disease and does not follow in the office with a slag mixer. She states her PCP told her she had afib. There is no documentation to support this here in the hospital. We have been asked to see in consultation for syncope. She states she was up and using the bathroom in the middle of the night when she felt acutely lightneaded and then fell to the ground. She is unsure is she had passed out for sure. She denies feeling chest pain, shortness of breath, palpitations, nausea, vomiting or diaphoresis surrounding this event. On arrival an EKG was obtained revealing SR with no acute ST or T-wave abnormalities. Telemetry tracings negative for an arrhythmia. However, there are some PAC's noted with sinus arrhythmia. Laboratory data reviewed, WBC 5.1, hemoglobin 11.3, platelets 128, INR 3.6, sodium 143, potassium 4.3, creatinine 1.3, magnesium 1.5, cardiac enzymes negative 1. Chronic daily cardiac medications include warfarin, Lasix 20 mg daily, simv astatin 80 mg daily, amlodipine 5 mg daily and lisinopril 10 mg twice a day. 02/01/2021 Pt seen and examined laying flat in bed in no acute distress. She denies chest pain, dizziness or shortness of breath. Blood pressure 126/59 heart rate 62 afebrile and maintaining oxygen saturation on room air. Telemetry tracings reveal SR. Laboratory data reviewed, INR 2.3, hgb 10.6 and platelets 140. Echocardiogram revealing preserved LV systolic function with EF 55-60% with normal diastolic function. PHYSICAL EXAMINATION CONSTITUTIONAL: No apparent distress. HEENT: Head is normocephalic. Pupils are equal, round. Sclerae anicteric. Mucous membranes of the mouth are moist. No JVD. No carotid bruit. CHEST EXAMINATION: Lungs are clear to auscultation. No chest wall tenderness is noted on palpation or with deep breathing. HEART EXAMINATION: Regular rate and rhythm. S1, S2 heard. No murmurs, gallops or rub. EXTREMITIES: 2+ peripheral pulses, no lower extremity edema and no calf tenderness. ASSESSMENT Fall with questionable syncope Urinary tract infection Supratherapeutic INR Questionable paroxysmal atrial fibrillation History of DVT Hypertension Dyslipidemia Diabetes mellitus CVA Obesity, BMI 31 Poor functional capacity PLAN Hold eliquis today for INR 2.3 and start tomorrow AM. Event monitor on discharge. We will follow along as needed, please call with further questions or concerns. Nurse Practitioner note has been reviewed, I agree with a documented findings and plan of care. Patient was seen and examined. Objective - Vital Signs Vital signs: Vital Signs Temp 98.1 F 02/01/21 04:48 Pulse 62 02/01/21 04:48 Resp 18 02/01/21 04:48 BP 126/59 02/01/21 04:48 Pulse Ox 94 L 02/01/21 04:48 Intake & Output 01/31/21 02/01/21 02/01/21 18:59 06:59 18:59 Intake Total 400 500 Balance 400 500 Intake: Intake, IV Titration 400 500 Amount Sodium Chloride 0.9% 1, 500 000 ml @ 50 mls/hr IV . Q20H [facility] Rx#:[id number] cefTRIAXone 1 gm In 400 Sodium Chloride 0.9% 50 ml @ 100 mls/hr IVPB Q24HR [facility] Rx#:[id number] Oral 0 Other: Voiding Method Diaper Diaper Incontinent Incontinent # Voids 1 2 - Labs CBC & Chem 7: 02/01/21 04:54 01/31/21 05:18 Labs: Abnormal Lab Results - Last 24 Hours (Table) 01/31/21 01/31/21 01/31/21 Range/Units 05:18 12:45 17:55 RBC (3.80-5.40) m/uL Hgb (11.4-16.0) gm/dL Hct (34.0-46.0) % Plt Count (150-450) k/uL PT (9.0-12.0) sec INR (<1.2) BUN 30.0 H (9.0-27.0) mg/dL Est GFR (CKD-EPI)AfAm 46.1 L (60.0-200.0) Est GFR (CKD-EPI)NonAf 39.8 L (60.0-200.0) BUN/Creatinine Ratio 23.08 H (12.00-20.00) Ratio POC Glucose (mg/dL) 101 H 194 H (75-99) mg/dL Calcium 8.3 L (8.7-10.3) mg/dL 01/31/21 02/01/21 02/01/21 Range/Units 21:03 04:54 04:54 RBC 3.32 L (3.80-5.40) m/uL Hgb 10.6 L (11.4-16.0) gm/dL Hct 32.5 L (34.0-46.0) % Plt Count 140 L (150-450) k/uL PT 22.2 H (9.0-12.0) sec INR 2.3 H (<1.2) BUN (9.0-27.0) mg/dL Est GFR (CKD-EPI)AfAm (60.0-200.0) Est GFR (CKD-EPI)NonAf (60.0-200.0) BUN/Creatinine Ratio (12.00-20.00) Ratio POC Glucose (mg/dL) 203 H (75-99) mg/dL Calcium (8.7-10.3) mg/dL 02/01/21 Range/Units 07:28 RBC (3.80-5.40) m/uL Hgb (11.4-16.0) gm/dL Hct (34.0-46.0) % Plt Count (150-450) k/uL PT (9.0-12.0) sec INR (<1.2) BUN (9.0-27.0) mg/dL Est GFR (CKD-EPI)AfAm (60.0-200.0) Est GFR (CKD-EPI)NonAf (60.0-200.0) BUN/Creatinine Ratio (12.00-20.00) Ratio POC Glucose (mg/dL) 190 H (75-99) mg/dL Calcium (8.7-10.3) mg/dL Microbiology - Last 24 Hours (Table) 01/30/21 12:56 Urine Culture - Preliminary Urine,Voided Gram Neg Bacilli
[2021-02-01 11:32] VITALS: BP 153/74; PULSE 59; RESP 16; TEMP 98.4
[2021-02-01 11:43] LABS: Glucose,Whole Blood 189 mg/dL (75-99)
[2021-02-01] MEDS: PANTOPRAZOLE 40 MG TABLET PO SCH (13:25)
[2021-02-01] MEDS: ATORVASTATIN 40 MG TAB PO SCH (13:25)
--- NOTE | 2021-02-01 13:47 | P.DS ---
Providers Date of admission: 01/30/21 14:14 Attending physician: Juan Valdivia MD Consults: 01/30/21 14:23 Consult Physician Urgent Consulting Provider: Lam Amezcua Consult Reason/Comments: syncope, elevated trop Do you want consulting provider notified?: Yes Primary care physician: Zeke Beasley [facility] Course: Diagnoses: Dizziness and fall at the bathroom, no syncope as per patient Acute urinary tract infection Coagulopathy: Failure of Coumadin therapy with supratherapeutic INR Hypertension Hyperlipidemia Chronic kidney disease, stage III Atrial fibrillation on Coumadin History of CVA/TIA History of deep venous thrombosis Hospital course: This is a pleasant 75 years old female with past medical history of CVA/TIA, atrial fibrillation on Coumadin, diabetes mellitus, deep venous thrombosis, hypertension, hyperlipidemia, syncope. Presents because of fall Patient says that she was going to the bathroom when she felt dizzy and fell, she is not sure if she hit her head but she Denies syncope. allso patient vomited 3 times before falling, no abdominal pain, she has no bowel movement for the last 3 days which is unusual for her. She thinks her urine stinks but denies dysuria. Also no chest pain and chronic mild dyspnea. Patient was taken her Coumadin and her INR was subtherapeutic upon admission at 2.5 however it went up later on to 3.6. Coumadin was held and because of failure of her Coumadin for coagulopathy secondary to supratherapeutic INR we switched her anticoagulation to Eliquis per supervisor finishing room's recommendation. Several x-rays were unremarkable including KUB, hip and pelvic x-ray, lumbar x- ray and head and neck CT Optometric Technologist evaluated the patient, echocardiogram showed ejection fraction of 55-60%. Diastolic filling pattern is normal for age. No significant valvular heart disease. Severe concentric left ventricular hypertrophy. Patient was cleared by supervisor finishing room for discharge but they recommended event monitor as outpatient and follow-up in 2 weeks. Patient also had UTI secondary to Escherichia fergusonii which was sensitive to ceftriaxone started in the hospital. Her relative leukocytosis at 10k which although it is within the reference range, improved down to 4.3 k which is her baseline of 4-5 k. Patient remains afebrile. She will be discharged on short course of oral Ceftin. On the day of discharge she denies chest pain, no dyspnea. No change in urine or bowel habits. No fever. Generally she feels better today with however she still generally weak and needs rehab. Patient was cleared for discharge by supervisor finishing room Problems and management plan were discussed with the patient and he verbalized understanding and acceptance Patient was found stable and can be discharged home however he needs follow-up as an outpatient. Patient was instructed to follow up with PCP within one week and patient agrees Also patient was instructed to follow up with Dr. Mcfadden in 2 weeks and she agrees to call and make appointment Physical exam Gen: patient is a AAOx3, no distress CVS: S1-S2, RRR, no murmur Lungs: B/L CTA, no wheezing Abdomen: soft, no distention, no tenderness, positive bowel sounds Extremity: no leg edema or induration Time spent more than 35 minutes Patient Condition at Discharge: Fair Plan - Discharge Summary Discharge Rx Participant: No New Discharge Prescriptions: New Apixaban [Eliquis] 5 mg PO BID #60 tab Discontinued Warfarin [Coumadin] 5 mg PO DAILY@1200 No Action Simvastatin [Zocor] 80 mg PO DAILY@1200 glipiZIDE [Glucotrol] 10 mg PO BID Pantoprazole [Protonix] 40 mg PO DAILY@1200 Furosemide [Lasix] 20 mg PO DAILY@1200 lisinopriL [Zestril] 10 mg PO BID amLODIPine [Norvasc] 5 mg PO HS Potassium Chloride [Potassium Chloride ER] 8 meq PO DAILY@1200 Discharge Medication List Pantoprazole [Protonix] 40 mg PO DAILY@1200 09/28/20 [History] Simvastatin [Zocor] 80 mg PO DAILY@1200 09/28/20 [History] amLODIPine [Norvasc] 5 mg PO HS 09/28/20 [History] glipiZIDE [Glucotrol] 10 mg PO BID 09/28/20 [History] Furosemide [Lasix] 20 mg PO DAILY@1200 01/30/21 [History] Potassium Chloride [Potassium Chloride ER] 8 meq PO DAILY@1200 01/30/21 [History] lisinopriL [Zestril] 10 mg PO BID 01/30/21 [History] Apixaban [Eliquis] 5 mg PO BID #60 tab 01/31/21 [Rx] Follow up Appointment(s)/Referral(s): Bishop Mcfadden MD [STAFF PHYSICIAN] - 2 Weeks Zeke Beasley MD [Primary Care Provider] - 1-2 days
[2021-02-01] MEDS ORDERED: polyethylene glycoL 3350 17 GM POWD.PACK PO STA (16:25)
[2021-02-02] MEDS ORDERED: APIXABAN 5 MG TAB PO SCH (09:00)
== END 2021-02-01 17:16 ==
LOC: EC 11:11 → INTOOBSV 14:14 → 6NMEDSUR 14:14 → UNDOADMIN 14:14 → 6NMEDSUR 15:08 → 5NMEDONC 17:39 → 6NMEDSUR 17:39 → 5NMEDONC 17:48
PROVIDERS: ADMIT Internal Medicine; ATTEND Internal Medicine
DX: R42 Dizziness and giddiness (principal); N39.0 Urinary tract infection, site not specified; D68.9 Coagulation defect, unspecified; E11.22 Type 2 diabetes mellitus with diabetic chronic kidney disease; E66.9 Obesity, unspecified; E78.5 Hyperlipidemia, unspecified; I48.91 Unspecified atrial fibrillation; N18.30 Chronic kidney disease, stage 3 unspecified; W18.30XA Fall on same level, unspecified, initial encounter; Z68.31 Body mass index [BMI] 31.0-31.9, adult; Z79.01 Long term (current) use of anticoagulants; Z79.84 Long term (current) use of oral hypoglycemic drugs; Z79.899 Other long term (current) drug therapy; Z86.718 Personal history of other venous thrombosis and embolism; Z86.73 Personal history of transient ischemic attack (TIA), and cerebral infarction without residual deficits
CPT/HCPCS: 96361 ×3; 96365; 96366 ×2; 96376; 99285; 36415; 93005; 93306; 93270; 97162; 97165; 80053; 80048; 82553; 83605; 83735; 84484 ×2; 85025 ×3; 85610 ×3; 85730 ×2; 81001; 87086; 87077; 87186; 72110; 73521; 74018; 72125; 70450; G0378 ×3; J0696 ×3

== ENCOUNTER 2024-06-29 13:58 | Emergency (ER) | payer MEDICARE ==
[2024-06-29 14:05] VITALS: RESP 18
--- NOTE | 2024-06-29 14:47 | ED ---
General Adult HPI - General Chief complaint: Back Pain/Injury Stated complaint: poss renal failure Time Seen by Provider: 06/29/24 14:44 Source: patient, RN notes reviewed Mode of arrival: EMS - History of Present Illness Initial comments: 79-year-old female with history of CKD stage IV, CVA, diabetes mellitus, hyperlipidemia, hypertension, and atrial fibrillation on Eliquis presenting to the ER for dysuria x 3 days. Describes associated itching, urinary urgency, low back pain, and urinary retention. States she last urinated this morning. States she has a history of UTIs and this feels similar. Denies abdominal pain, fever, chest pain, shortness of breath. - Related Data Home Medications Medication Instructions Recorded Confirmed Pantoprazole [Protonix] 40 mg PO DAILY@1200 09/28/20 01/30/21 Simvastatin [Zocor] 80 mg PO DAILY@1200 09/28/20 01/30/21 amLODIPine [Norvasc] 5 mg PO HS 09/28/20 01/30/21 glipiZIDE [Glucotrol] 10 mg PO BID 09/28/20 01/30/21 Furosemide [Lasix] 20 mg PO DAILY@1200 01/30/21 01/30/21 Potassium Chloride [Potassium 8 meq PO DAILY@1200 01/30/21 01/30/21 Chloride ER] lisinopriL [Zestril] 10 mg PO BID 01/30/21 01/30/21 Previous Rx's Medication Instructions Recorded Apixaban [Eliquis] 5 mg PO BID #60 tab 01/31/21 Docusate [Colace] 100 mg PO BID PRN 30 Days #60 02/01/21 capsule INSULIN ASPART (NovoLOG) [NovoLOG 0 unit SQ ACHS ml 02/01/21 (formulary)] Sennosides [Senokot] 8.6 mg PO BID PRN #60 tablet 02/01/21 cefuroxime axetiL [Ceftin] 500 mg PO BID 5 Days #14 tab 02/01/21 Cephalexin [Keflex] 500 mg PO Q6HR 7 Days #28 cap 06/29/24 Allergies Allergy/AdvReac Type Severity Reaction Status Date / Time No Known Allergies Allergy Verified 06/29/24 14:05 Review of Systems ROS Statement: Those systems with pertinent positive or pertinent negative responses have been documented in the HPI. ROS Other: All systems not noted in ROS Statement are negative. 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, blood clot in left leg, falls History of Any Multi-Drug Resistant Organisms: ESBL Date of last positivie culture/infection: 02/16/19 MDRO Source:: ESBL URINE Past Surgical History: Cholecystectomy, Tubal Ligation Past Anesthesia/Blood Transfusion Reactions: No Reported Reaction Past Psychological History: No Psychological Hx Reported Smoking Status: Never smoker Past Alcohol Use History: None Reported Past Drug Use History: None Reported General Exam General appearance: alert, in no apparent distress Head exam: Present: atraumatic, normocephalic, normal inspection Eye exam: Present: normal appearance, PERRL, EOMI. Absent: scleral icterus, conjunctival injection, periorbital swelling Respiratory exam: Present: normal lung sounds bilaterally. Absent: respiratory distress, wheezes, rales, rhonchi, stridor Cardiovascular Exam: Present: regular rate, normal rhythm, normal heart sounds. Absent: systolic murmur, diastolic murmur, rubs, gallop, clicks GI/Abdominal exam: Present: soft, tenderness (Mild suprapubic pain), normal bowel sounds. Absent: distended, guarding, rebound, rigid Neurological exam: Present: alert, oriented X3 Psychiatric exam: Present: normal affect, normal mood Skin exam: Present: warm, dry, intact, normal color. Absent: rash Course Vital Signs 06/29/24 14:00 Temperature 97.8 F Pulse Rate 71 Respiratory 18 Rate Blood Pressure 165/110 O2 Sat by Pulse 94 L Oximetry EKG Findings - EKG Results: EKG: interpreted by ERMD (EKG reveals normal sinus rhythm with no acute ST changes. Ventricular rate 70 bpm, MS interval 166, QRS duration 68, QT/QTc 426/447) Medical Decision Making - Medical Decision Making Was pt. sent in by a medical professional or institution (, PA, MEDICAL CLERK, urgent ca re, hospital, or detention...) When possible be specific @ -No Did you speak to anyone other than the patient for history (EMS, parent, family, police, friend...)? What history was obtained from this source @ -No Did you review nursing and triage notes (agree or disagree)? Why? @ -I reviewed and agree with nursing and triage notes Were old charts reviewed (outside hosp., previous admission, EMS record, old EKG, old radiological studies, urgent care reports/EKG's, detention records)? Report findings @ -No old charts were reviewed Differential Diagnosis (chest pain, altered mental status, abdominal pain women, abdominal pain men, vaginal bleeding, weakness, fever, dyspnea, syncope, he adache, dizziness, GI bleed, back pain, seizure, CVA, palpatations, mental health, musculoskeletal)? @ -Urinary tract infection, kidney infection, BENITO, acute renal failure, urinary retention EKG interpreted by me (3pts min.). @ -As above X-rays interpreted by me (1pt min.). @ -None done CT interpreted by me (1pt min.). @ -None done U/S interpreted by me (1pt. min.). @ -None done What testing was considered but not performed or refused? (CT, X-rays, U/S, labs)? Why? @ -None What meds were considered but not given or refused? Why? @ -None Did you discuss the management of the patient with other professionals (professionals i.e. , PA, MEDICAL CLERK, lab, RT, psych nurse, social worker clinical, relations coordinator, teacher, enforcement safety officer, manager rn case)? Give summary @ -No Was smoking cessation discussed for >3mins.? @ -No Was critical care preformed (if so, how long)? @ -No Were there social determinants of health that impacted care today? How? (Homelessness, low income, unemployed, alcoholism, drug addiction, trans portation, low edu. Level, literacy, decrease access to med. care, shelter, rehab)? @ -No Was there de-escalation of care discussed even if they declined (Discuss DNR or withdrawal of care, Hospice)? DNR status @ -No What co-morbidities impacted this encounter? (DM, HTN, Smoking, COPD, CAD, Cancer, CVA, ARF, Chemo, Hep., AIDS, mental health diagnosis, sleep apnea, morbid obesity)? @ -None Was patient admitted / discharged? Hospital course, mention meds given and route, prescriptions, significant lab abnormalities, going to OR and other pertinent info. @ -Discharge. This is an 79-year-old female presenting with dysuria x 3 days. States it feels similar to previous UTIs. Patient is hypertensive at 165/110. Patient is afebrile with no CVA tenderness. Tolerating orals well. Lab work remarkable for hemoglobin 10.9 comparable to baseline, glucose 243. White blood cell count stable at 4. Urinalysis highly indicative of UTI given positive nitrite, large amount of white blood cells. Patient updated on results. Discussed diagnosis of urinary tract infection with patient. Given low back pain, will cover for pyelonephritis with 1 dose of IV Rocephin. Will prescribe Keflex 4 times daily for 7 days. Appropriate return precautions and follow-up care discussed. Case was discussed with my ED attending Dr. Mendoza Undiagnosed new problem with uncertain prognosis? @ -No Drug Therapy requiring intensive monitoring for toxicity (Heparin, Nitro, Insulin, Cardizem)? @ -No Were any procedures done? @ -No Diagnosis/symptom? @ -Urinary tract infection Acute, or Chronic, or Acute on Chronic? @ -Acute Uncomplicated (without systemic symptoms) or Complicated (systemic symptoms)? @ -Uncomplicated Side effects of treatment? @ -No Exacerbation, Progression, or Severe Exacerbation? @ -No Poses a threat to life or bodily function? How? (Chest pain, USA, UT, pneumonia, PE, COPD, DKA, ARF, appy, cholecystitis, CVA, Diverticulitis, Homicidal, Suicidal, threat to staff... and all critical care pts) @ -Not at this time - Lab Data Result diagrams: 06/29/24 15:00 06/29/24 15:00 Lab Results 06/29/24 06/29/24 06/29/24 Range/Units 15:00 15:00 15:19 WBC 4.2 (3.8-10.6) k/uL RBC 3.41 L (3.80-5.40) m/uL Hgb 10.9 L (11.4-16.0) gm/dL Hct 33.0 L (34.0-46.0) % MCV 96.6 (80.0-100.0) fL MCH 31.8 (25.0-35.0) pg MCHC 32.9 (31.0-37.0) g/dL RDW 14.3 (11.5-15.5) % Plt Count 161 (150-450) k/uL MPV 8.3 Neutrophils % 62 % Lymphocytes % 26 % Monocytes % 4 % Eosinophils % 7 % Basophils % 1 % Neutrophils # 2.6 (1.3-7.7) k/uL Lymphocytes # 1.1 (1.0-4.8) k/uL Monocytes # 0.2 (0-1.0) k/uL Eosinophils # 0.3 (0-0.7) k/uL Basophils # 0.0 (0-0.2) k/uL Sodium 137 (137-145) mmol/L Potassium 4.3 (3.5-5.1) mmol/L Chloride 107 (98-107) mmol/L Carbon Dioxide 25 (22-30) mmol/L Anion Gap 5 mmol/L BUN 16 (7-17) mg/dL Creatinine 1.04 (0.52-1.04) mg/dL Est GFR (CKD-EPI)AfAm 59 (>60 ml/min/1.73 sqM) Est GFR (CKD-EPI)NonAf 51 (>60 ml/min/1.73 sqM) Glucose 243 H (74-99) mg/dL Calcium 8.4 (8.4-10.2) mg/dL Total Bilirubin 0.5 (0.2-1.3) mg/dL AST 15 (14-36) U/L ALT 9 (4-34) U/L Alkaline Phosphatase 72 (38-126) U/L Total Protein 5.5 L (6.3-8.2) g/dL Albumin 3.1 L (3.5-5.0) g/dL Urine Color Yellow Urine Appearance Turbid H (Clear) Urine pH 6.5 (5.0-8.0) Ur Specific [place] 1.017 (1.001-1.035) Urine Protein 2+ H (Negative) Urine Glucose (UA) 4+ H (Negative) Urine Ketones Trace H (Negative) Urine Blood Small H (Negative) Urine Nitrite Positive H (Negative) Urine Bilirubin Negative (Negative) Urine Urobilinogen <2.0 (<2.0) mg/dL Ur Leukocyte Esterase Large H (Negative) Urine RBC 17 H (0-5) /hpf Urine WBC >182 H (0-5) /hpf Urine WBC Clumps Many H (None) /hpf Urine Bacteria Occasional H (None) /hpf Urine Mucus Rare H (None) /hpf Disposition Clinical Impression: Urinary tract infection Disposition: HOME SELF-CARE Condition: Stable Instructions (If sedation given, give patient instructions): Urinary Tract Infection in Older Adults (ED) Additional Instructions: Take Keflex 4 times daily for 7 days. Follow-up with PCP as discussed. Please return to the Emergency Department if symptoms worsen or any other concerns. Prescriptions: Cephalexin [Keflex] 500 mg PO Q6HR 7 Days #28 cap Is patient prescribed a controlled substance at d/c from ED?: No Referrals: Zeke Beasley MD [Primary Care Provider] - 1-2 days Time of Disposition: 15:59
[2024-06-29 15:15] LABS: Basophils % (A) 1 %; Eosinophils # (A) 0.3 k/uL (0-0.7); Eosinophils % (A) 7 %; HGB 10.9 gm/dL (11.4-16.0); Lymphocytes # (A) 1.1 k/uL (1.0-4.8); Lymphocytes % (A) 26 %; MCH 31.8 pg (25.0-35.0); MCHC 32.9 g/dL (31.0-37.0); MCV 96.6 fL (80.0-100.0); Mean Platelet Volume 8.3; Monocytes # (A) 0.2 k/uL (0-1.0); Monocytes % (A) 4 %; Neutrophils # (A) 2.6 k/uL (1.3-7.7); Neutrophils % (A) 62 %; Platelet Count 161 k/uL (150-450); RBC 3.41 m/uL (3.80-5.40); RDW 14.3 % (11.5-15.5); WBC 4.2 k/uL (3.8-10.6)
[2024-06-29 15:21] LABS: ALT 9 U/L (4-34); AST 15 U/L (14-36); African American GFR (CKD) 59 (>60 ml/min/1.73 sqM); Albumin 3.1 g/dL (3.5-5.0); Alkaline Phosphatase 72 U/L (38-126); Anion Gap 5 mmol/L; Blood Urea Nitrogen 16 mg/dL (7-17); Calcium 8.4 mg/dL (8.4-10.2); Carbon Dioxide 25 mmol/L (22-30); Chloride 107 mmol/L (98-107); Glucose 243 mg/dL (74-99); Non-African American GFR(CKD) 51 (>60 ml/min/1.73 sqM); Potassium 4.3 mmol/L (3.5-5.1); Sodium 137 mmol/L (137-145); Total Bilirubin 0.5 mg/dL (0.2-1.3); Total Protein 5.5 g/dL (6.3-8.2)
[2024-06-29 15:40] LABS: Appearance,Urine Turbid (Clear); Bilirubin,Urine Negative (Negative); Blood,Urine Small (Negative); Color,Urine Yellow; Glucose,Urine (UA) 4+ (Negative); Ketones,Urine Trace (Negative); Leukocyte Esterase,Urine Large (Negative); Nitrite,Urine Positive (Negative); PH, Urine 6.5 (5.0-8.0); Protein,Urine 2+ (Negative); RBC,Urine 17 /hpf (0-5); Specific Gravity,Urine 1.017 (1.001-1.035); Urobilinogen,Urine <2.0 mg/dL (<2.0); WBC,Urine >182 /hpf (0-5)
[2024-06-29 15:41] LABS: Bacteria,Urine Occasional /hpf; Mucus,Urine Rare /hpf
[2024-06-29] MEDS: cefTRIAXone IN SWFI 1,000 MG/10 ML SYRINGE IVP STA (16:39)
[2024-06-29 17:17] VITALS: BP 150/92; PULSE 72; TEMP 98
== END 2024-06-29 18:20 | disposition home or self-care (01) ==
LOC: EC 13:58
DX: N39.0 Urinary tract infection, site not specified (principal); I12.9 Hypertensive chronic kidney disease with stage 1 through stage 4 chronic kidney disease, or unspecified chronic kidney disease; N18.4 Chronic kidney disease, stage 4 (severe); E11.22 Type 2 diabetes mellitus with diabetic chronic kidney disease; E78.5 Hyperlipidemia, unspecified; I48.91 Unspecified atrial fibrillation
CPT/HCPCS: 36415; 93005; 80053; 85025; 81001; 87086; 99284; 96374; J0696